=== PATIENT | female | born 1935 | race Caucasian/White ===

== ENCOUNTER 2017-04-26 12:05 | Emergency (ER) | payer MEDICARE ==
[~2017-04-26] VITALS: Ht 152.4 cm; Wt 57.5 kg
[2017-04-26] MEDS ORDERED: LOVA20TA2 PO (12:22)
[2017-04-26] MEDS ORDERED: ASPI81TA85 PO (12:22)
[2017-04-26] MEDS ORDERED: ATEN25TA PO (12:22)
[2017-04-26] MEDS ORDERED: LISI20TA PO (12:22)
[2017-04-26] MEDS ORDERED: PIOG15TA3 PO (12:22)
[2017-04-26] MEDS ORDERED: METF500T PO (12:22)
[2017-04-26] MEDS ORDERED: LEVO137T2 PO (12:22)
[2017-04-26] MEDS ORDERED: OMEP40CA2 PO (12:22)
[2017-04-26] MEDS ORDERED: CHEL50TA PO (12:25)
[2017-04-26] MEDS ORDERED: GLUC750T22 PO (12:25)
[2017-04-26] MEDS ORDERED: VITA1CAP2 PO (12:25)
[2017-04-26] MEDS ORDERED: CYCLOBENZAPRINE 5MG TABLET PO ONE (13:30)
[2017-04-26 13:49] LABS: BASO % 0.7 % (0.0-1.0); EOS # 0.1 K/mm3 (0.0-0.50); EOS % 1.3 % (0.0-3.0); LARGE UNSTAINED CELL # 0.3 K/mm3 (0.0-0.4); LARGE UNSTAINED CELL % 4.1 % (0.0-4.0); LYMPH # 1.8 K/mm3 (1.5-4.5); LYMPH % 27.1 % (24.0-44.0); MEAN CORPUSCULAR HEMOGLOBIN 32.6 pg (27.0-33.0); MEAN CORPUSCULAR HGB CONC 33.5 g/dl (32.0-36.5); MEAN CORPUSCULAR VOLUME 97.3 fl (80.0-96.0); MONO # 0.4 K/mm3 (0.0-0.8); MONO % 6.7 % (0.0-5.0); NEUTROPHILS % 60.2 % (36.0-66.0); PLATELET COUNT, AUTOMATED 352 k/mm3 (150-450); WHITE BLOOD COUNT 6.6 K/mm3 (4.0-10.0)
[2017-04-26 14:13] LABS: ALBUMIN 3.4 GM/DL (3.2-5.2); ALBUMIN/GLOBULIN RATIO 1.06 (1.00-1.93); ALKALINE PHOSPHATASE 83 U/L (45-117); ALT/SGPT 15 U/L (12-78); ANION GAP 4 MEQ/L (8-16); AST/SGOT 13 U/L (15-37); BILIRUBIN,DIRECT < 0.1 MG/DL (0.0-0.2); BILIRUBIN,TOTAL 0.3 MG/DL (0.2-1.0); BLOOD UREA NITROGEN 10 MG/DL (7-18); CALCIUM LEVEL 9.1 MG/DL (8.8-10.2); CARBON DIOXIDE LEVEL 29 MEQ/L (21-32); CHLORIDE LEVEL 99 MEQ/L (98-107); CREATININE FOR GFR 0.77 MG/DL (0.55-1.02); GLOMERULAR FILTRATION RATE > 60.0 (>32); GLUCOSE, FASTING 77 MG/DL (83-110); POTASSIUM SERUM 4.8 MEQ/L (3.5-5.1); SODIUM LEVEL 132 MEQ/L (136-145); TOTAL PROTEIN 6.6 GM/DL (6.4-8.2)
[2017-04-26 14:32] LABS: ERYTHROCYTE SEDIMENTATION RATE 11 mm/hr (0-30)
--- NOTE | 2017-04-26 14:55 | REP ---
CT CHEST WITHOUT IV CONTRAST: CT chest is performed without IV contrast. Sagittal and coronal reconstruction images are performed. Diffuse fibrotic changes are seen throughout the lungs without acute infiltrate or suspicious nodular opacity. The hearts not enlarged. There is moderate atherosclerotic calcification of the thoracic aorta without aneurysm. There is no pleural or pericardial effusion. No gross adenopathy is seen. There is a huge hiatal hernia. There are degenerative changes of the spine. There is no fracture of the visualized osseous structures. There is metallic internal fixation in the right clavicle. The visualized upper abdominal structures are grossly unremarkable. IMPRESSION: No acute abnormalities as discussed in detail above. Huge hiatal hernia. Signed by Ashu Cheung MD 04/26/2017 05:24 P
[2017-04-26] MEDS ORDERED: KETOROLAC 30 MG/ML VIAL (J1885) IV ONE (15:00)
[2017-04-26] MEDS ORDERED: CYCL5TA PO (16:31)
[2017-04-26] MEDS ORDERED: NORC1TAB4 PO (16:31)
[2017-04-26 16:46] VITALS: BP 141/70
--- NOTE | 2017-04-26 19:39 | ECGEPIP ---
Stationary ECG Study 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
== END 2017-04-26 16:47 | disposition home or self-care (01) ==
LOC: M ED 13:55
DX: E87.1 Hypo-osmolality and hyponatremia (principal); M62.838 Other muscle spasm; K44.9 Diaphragmatic hernia without obstruction or gangrene; E11.9 Type 2 diabetes mellitus without complications; I10 Essential (primary) hypertension; E03.9 Hypothyroidism, unspecified; Z88.0 Allergy status to penicillin; F17.210 Nicotine dependence, cigarettes, uncomplicated
CPT/HCPCS: 71250; 80048; 80076; 82550; 82553; 83880; 84484; 85025; 85652; 86140; 93005; 93041; 94760; 96374; 99285; J1885

== ENCOUNTER 2018-09-19 09:17 | Inpatient (IN) | payer MEDICARE ==
[2018-09-19 10:06] LABS: BASO # 0.1 10^3/uL (0.0-0.2); BASO % 0.4 % (0.0-1.0); EOS % 0.3 % (0.0-3.0); HEMATOCRIT 41.6 % (36.0-47.0); HEMOGLOBIN 14.5 g/dl (12.0-15.5); IMMATURE GRANULOCYTE % 1.3 % (0-3.0); LYMPH # 1.7 10^3/uL (1.5-4.5); LYMPH % 11.8 % (24.0-44.0); MEAN CORPUSCULAR HEMOGLOBIN 31.7 pg (27.0-33.0); MEAN CORPUSCULAR HGB CONC 34.9 g/dl (32.0-36.5); MEAN CORPUSCULAR VOLUME 90.8 fl (80.0-96.0); MONO # 1.4 10^3/uL (0.0-0.8); MONO % 9.9 % (0.0-5.0); NEUTROPHILS # 10.8 10^3/uL (1.8-7.7); NEUTROPHILS % 76.3 % (36.0-66.0); PLATELET COUNT, AUTOMATED 440 10^3/uL (150-450); RED BLOOD COUNT 4.58 10^6/uL (4.00-5.40); RED CELL DISTRIBUTION WIDTH 11.6 % (11.5-14.5); WHITE BLOOD COUNT 14.2 10^3/uL (4.0-10.0)
[2018-09-19 10:59] LABS: ALBUMIN/GLOBULIN RATIO 0.83 (1.00-1.93); ALKALINE PHOSPHATASE 113 U/L (45-117); ALT/SGPT 13 U/L (12-78); ANION GAP 9 MEQ/L (8-16); AST/SGOT 11 U/L (7-37); BILIRUBIN,DIRECT < 0.1 MG/DL (0.0-0.2); BILIRUBIN,TOTAL 0.3 MG/DL (0.2-1.0); BLOOD UREA NITROGEN 16 MG/DL (7-18); CALCIUM LEVEL 9.6 MG/DL (8.8-10.2); CARBON DIOXIDE LEVEL 33 MEQ/L (21-32); CHLORIDE LEVEL 77 MEQ/L (98-107); CPK CREATINE PHOSPHOKINASE 66 U/L (26-192); CREATININE FOR GFR 0.81 MG/DL (0.55-1.30); GLOMERULAR FILTRATION RATE > 60.0 (>32); GLUCOSE, FASTING 129 MG/DL (70-100); MB/CK RELATIVE INDEX 5.45 (< OR =4); NT-PRO BNP 2347 PG/ML (<450); POTASSIUM SERUM 4.1 MEQ/L (3.5-5.1); SODIUM LEVEL 119 MEQ/L (136-145); TOTAL PROTEIN 6.6 GM/DL (6.4-8.2); TROPONIN I < 0.02 NG/ML (< 0.10)
[2018-09-19 11:00] LABS: LACTIC ACID SEPSIS PROTOCOL 1.5 MMOL/L (0.4-2.0)
[2018-09-19] MEDS: IPRATROPIUM 0.5MG/ALBUTEROL 2.5MG INH SOL UD 3ML (DUONEB)(J7620) NEB ×3 (11:01→12:01)
[2018-09-19] MEDS: methylPREDNISolone INJ 125 MG/2 ML VIAL (J2930) IV (11:07)
[2018-09-19 11:32] LABS: FREE T4 0.81 NG/DL (0.76-1.46)
[2018-09-19] MEDS: FUROSEMIDE 40 MG/4 ML VIAL (J1940) IV (11:40)
[2018-09-19] MEDS ORDERED: ACETAMINOPHEN TAB 650MG DOSE (2X325MG) PO (12:00)
[2018-09-19] MEDS: HumaLOG INSULIN (NovoLOG) PER UNIT SC ×3 (12:00→20:55)
[2018-09-19] MEDS ORDERED: ONDANSETRON 4 MG TAB (S0181) PO (12:00)
[2018-09-19 12:02] LABS: OSMOLALITY URINE 512 MOSM/KG (500-800)
[2018-09-19 12:03] LABS: KETONE, URINE AUTO RFX NEGATIVE (NEGATIVE); NITRITE, URINE AUTO RFX NEGATIVE (NEGATIVE); RBC, URINE AUTO RFX 4 /HPF (0-3); SPECIFIC GRAVITY UR AUTO RFX 1.014 (1.002-1.035); SQUAM EPITHELIAL CELL UR AURFX 6 /HPF (0-6); WBC, URINE AUTO RFX 3 /HPF (0-3)
[2018-09-19 12:04] LABS: LEUKOCYTE ESTERASE UR AUTO RFX TRACE (NEGATIVE)
[2018-09-19 12:14] LABS: INFLUENZA A AMPLIFICATION NEGATIVE (NEGATIVE); INFLUENZA B AMPLIFICATION NEGATIVE (NEGATIVE)
[2018-09-19 12:27] LABS: SODIUM,RANDOM URINE 72 MEQ/L
[2018-09-19] MEDS: VITAMIN D 1,000 INTERNATIONAL UNITS TABLET PO (12:27)
[2018-09-19] MEDS: LEVOTHYROXINE 125MCG TABLET (0.125MG) PO (12:28)
[2018-09-19] MEDS: ASPIRIN 81 MG ENTERIC TAB PO (12:28)
[2018-09-19] MEDS: OMEPRAZOLE 20 MG CAP PO (12:28)
[2018-09-19] MEDS: ATENOLOL 25 MG TAB PO (12:29)
[2018-09-19] MEDS ORDERED: GLUCAGON FOR INJ 1 MG VIAL (J1610) SC (12:45)
[2018-09-19] MEDS ORDERED: GLUCOSE 4 GM CHEW TABLET PO (12:45)
[2018-09-19] MEDS ORDERED: DEXTROSE 50% 50 ML SYRINGE IV (12:45)
[2018-09-19] MEDS: SODIUM CHLORIDE 0.9% 1000ML IV (13:10)
[2018-09-19 13:54] LABS: ANION GAP 10 MEQ/L (8-16); BLOOD UREA NITROGEN 15 MG/DL (7-18); CALCIUM LEVEL 9.4 MG/DL (8.8-10.2); CARBON DIOXIDE LEVEL 33 MEQ/L (21-32); CHLORIDE LEVEL 76 MEQ/L (98-107); CREATININE FOR GFR 0.82 MG/DL (0.55-1.30); GLOMERULAR FILTRATION RATE > 60.0 (>32); GLUCOSE, FASTING 152 MG/DL (70-100); POTASSIUM SERUM 3.4 MEQ/L (3.5-5.1); SODIUM LEVEL 119 MEQ/L (136-145)
[2018-09-19 13:58] LABS: OSMOLALITY SERUM 257 MOSM/KG (280-301)
[2018-09-19 14:52] LABS: ANION GAP 8 MEQ/L (8-16); BLOOD UREA NITROGEN 15 MG/DL (7-18); CALCIUM LEVEL 8.9 MG/DL (8.8-10.2); CARBON DIOXIDE LEVEL 32 MEQ/L (21-32); CHLORIDE LEVEL 78 MEQ/L (98-107); CREATININE FOR GFR 0.87 MG/DL (0.55-1.30); GLOMERULAR FILTRATION RATE > 60.0 (>32); GLUCOSE, FASTING 195 MG/DL (70-100); MAGNESIUM LEVEL 1.3 MG/DL (1.8-2.4); SODIUM LEVEL 118 MEQ/L (136-145); TROPONIN I < 0.02 NG/ML (< 0.10)
[2018-09-19 15:20] LABS: ESTIMATED AVERAGE GLUCOSE 140 MG/DL (60-110); HEMOGLOBIN A1c 6.5 %
[2018-09-19] MEDS: POTASSIUM CHLORIDE 10% LIQ 20 MEQ/15 ML UDC PO (16:23)
[2018-09-19 16:42] LABS: BEDSIDE GLUCOSE 257 MG/DL (83-110)
[2018-09-19] MEDS: SODIUM CHLORIDE 3% 200 ML IV (17:56)
[2018-09-19] MEDS: MAGNESIUM SULFATE 8 MEQ in NS 100 ML IV (18:17)
[2018-09-19 18:30] LABS: ANION GAP 7 MEQ/L (8-16); BLOOD UREA NITROGEN 17 MG/DL (7-18); CALCIUM LEVEL 8.8 MG/DL (8.8-10.2); CARBON DIOXIDE LEVEL 29 MEQ/L (21-32); CHLORIDE LEVEL 82 MEQ/L (98-107); CREATININE FOR GFR 1.09 MG/DL (0.55-1.30); GLOMERULAR FILTRATION RATE 50.8 (>32); GLUCOSE, FASTING 338 MG/DL (70-100); POTASSIUM SERUM 5.4 MEQ/L (3.5-5.1); SODIUM LEVEL 118 MEQ/L (136-145)
[2018-09-19 20:55] LABS: BEDSIDE GLUCOSE 206 MG/DL (83-110)
[2018-09-19] MEDS: SIMVASTATIN 20 MG TAB PO (20:55)
[2018-09-19 22:21] LABS: ANION GAP 8 MEQ/L (8-16); BLOOD UREA NITROGEN 19 MG/DL (7-18); CALCIUM LEVEL 8.6 MG/DL (8.8-10.2); CARBON DIOXIDE LEVEL 28 MEQ/L (21-32); CHLORIDE LEVEL 85 MEQ/L (98-107); CREATININE FOR GFR 0.95 MG/DL (0.55-1.30); GLOMERULAR FILTRATION RATE 59.5 (>32); GLUCOSE, FASTING 221 MG/DL (70-100); SODIUM LEVEL 121 MEQ/L (136-145)
[2018-09-20 02:27] LABS: ANION GAP 9 MEQ/L (8-16); BLOOD UREA NITROGEN 19 MG/DL (7-18); CALCIUM LEVEL 8.6 MG/DL (8.8-10.2); CARBON DIOXIDE LEVEL 28 MEQ/L (21-32); CHLORIDE LEVEL 87 MEQ/L (98-107); CREATININE FOR GFR 0.83 MG/DL (0.55-1.30); GLOMERULAR FILTRATION RATE > 60.0 (>32); GLUCOSE, FASTING 202 MG/DL (70-100); SODIUM LEVEL 124 MEQ/L (136-145)
[2018-09-20 05:19] LABS: BASO % 0.1 % (0.0-1.0); HEMATOCRIT 35.8 % (36.0-47.0); HEMOGLOBIN 12.6 g/dl (12.0-15.5); IMMATURE GRANULOCYTE % 1.8 % (0-3.0); LYMPH # 1.1 10^3/uL (1.5-4.5); LYMPH % 10.2 % (24.0-44.0); MEAN CORPUSCULAR HEMOGLOBIN 31.3 pg (27.0-33.0); MEAN CORPUSCULAR HGB CONC 35.2 g/dl (32.0-36.5); MEAN CORPUSCULAR VOLUME 89.1 fl (80.0-96.0); MONO # 0.9 10^3/uL (0.0-0.8); MONO % 8.7 % (0.0-5.0); NEUTROPHILS # 8.6 10^3/uL (1.8-7.7); NEUTROPHILS % 79.2 % (36.0-66.0); PLATELET COUNT, AUTOMATED 383 10^3/uL (150-450); RED BLOOD COUNT 4.02 10^6/uL (4.00-5.40); RED CELL DISTRIBUTION WIDTH 11.6 % (11.5-14.5); WHITE BLOOD COUNT 10.8 10^3/uL (4.0-10.0)
[2018-09-20 05:24] LABS: ANION GAP 7 MEQ/L (8-16); BLOOD UREA NITROGEN 19 MG/DL (7-18); CALCIUM LEVEL 8.7 MG/DL (8.8-10.2); CARBON DIOXIDE LEVEL 30 MEQ/L (21-32); CHLORIDE LEVEL 86 MEQ/L (98-107); CREATININE FOR GFR 0.77 MG/DL (0.55-1.30); GLOMERULAR FILTRATION RATE > 60.0 (>32); GLUCOSE, FASTING 169 MG/DL (70-100); POTASSIUM SERUM 4.9 MEQ/L (3.5-5.1); SODIUM LEVEL 123 MEQ/L (136-145)
[2018-09-20] MEDS: LEVOTHYROXINE 125MCG TABLET (0.125MG) PO (06:32)
[2018-09-20] MEDS: ASPIRIN 81 MG ENTERIC TAB PO (08:39)
[2018-09-20] MEDS: OMEPRAZOLE 20 MG CAP PO (08:39)
[2018-09-20] MEDS: MAGNESIUM OXIDE 400 MG TAB (MAG-OX) PO (08:39)
[2018-09-20] MEDS: VITAMIN D 1,000 INTERNATIONAL UNITS TABLET PO (08:40)
[2018-09-20] MEDS: HumaLOG INSULIN (NovoLOG) PER UNIT SC ×4 (08:40→19:57)
[2018-09-20] MEDS: ATENOLOL 25 MG TAB PO (08:56)
[2018-09-20] MEDS ORDERED: ATENOLOL 25 MG TAB PO (09:00)
[2018-09-20 10:45] LABS: ANION GAP 7 MEQ/L (8-16); BLOOD UREA NITROGEN 19 MG/DL (7-18); CALCIUM LEVEL 8.9 MG/DL (8.8-10.2); CARBON DIOXIDE LEVEL 31 MEQ/L (21-32); CHLORIDE LEVEL 88 MEQ/L (98-107); CREATININE FOR GFR 1.03 MG/DL (0.55-1.30); GLOMERULAR FILTRATION RATE 54.2 (>32); GLUCOSE, FASTING 120 MG/DL (70-100); POTASSIUM SERUM 4.6 MEQ/L (3.5-5.1); SODIUM LEVEL 126 MEQ/L (136-145)
[2018-09-20 11:26] LABS: SODIUM,RANDOM URINE 26 MEQ/L
[2018-09-20 11:32] LABS: OSMOLALITY URINE 563 MOSM/KG (500-800)
[2018-09-20 11:40] LABS: BEDSIDE GLUCOSE 156 MG/DL (83-110)
[2018-09-20] MEDS: TOLVAPTAN 7.5 MG HALF-TAB PO (12:22)
[2018-09-20 17:02] LABS: BEDSIDE GLUCOSE 96 MG/DL (83-110)
[2018-09-20 18:16] LABS: ANION GAP 4 MEQ/L (8-16); BLOOD UREA NITROGEN 19 MG/DL (7-18); CALCIUM LEVEL 9.1 MG/DL (8.8-10.2); CARBON DIOXIDE LEVEL 33 MEQ/L (21-32); CHLORIDE LEVEL 89 MEQ/L (98-107); CREATININE FOR GFR 0.96 MG/DL (0.55-1.30); GLOMERULAR FILTRATION RATE 58.8 (>32); GLUCOSE, FASTING 95 MG/DL (70-100); POTASSIUM SERUM 4.4 MEQ/L (3.5-5.1); SODIUM LEVEL 126 MEQ/L (136-145)
[2018-09-20] MEDS: SIMVASTATIN 20 MG TAB PO (19:57)
[2018-09-20] MEDS: IPRATROPIUM 0.5MG/ALBUTEROL 2.5MG INH SOL UD 3ML (DUONEB)(J7620) NEB (20:00)
[2018-09-20 20:50] LABS: BEDSIDE GLUCOSE 186 MG/DL (83-110)
[2018-09-20 22:29] LABS: ANION GAP 6 MEQ/L (8-16); BLOOD UREA NITROGEN 19 MG/DL (7-18); CALCIUM LEVEL 8.8 MG/DL (8.8-10.2); CARBON DIOXIDE LEVEL 32 MEQ/L (21-32); CHLORIDE LEVEL 92 MEQ/L (98-107); CREATININE FOR GFR 0.85 MG/DL (0.55-1.30); GLOMERULAR FILTRATION RATE > 60.0 (>32); GLUCOSE, FASTING 157 MG/DL (70-100); POTASSIUM SERUM 4.5 MEQ/L (3.5-5.1); SODIUM LEVEL 130 MEQ/L (136-145)
[2018-09-21] MEDS: IPRATROPIUM 0.5MG/ALBUTEROL 2.5MG INH SOL UD 3ML (DUONEB)(J7620) NEB ×3 (00:22→10:31)
[2018-09-21 05:20] LABS: ALBUMIN 2.6 GM/DL (3.2-5.2); ANION GAP 5 MEQ/L (8-16); BLOOD UREA NITROGEN 16 MG/DL (7-18); CALCIUM LEVEL 8.8 MG/DL (8.8-10.2); CARBON DIOXIDE LEVEL 33 MEQ/L (21-32); CHLORIDE LEVEL 95 MEQ/L (98-107); CREATININE FOR GFR 0.74 MG/DL (0.55-1.30); GLOMERULAR FILTRATION RATE > 60.0 (>32); GLUCOSE, FASTING 121 MG/DL (70-100); PHOSPHORUS LEVEL 2.5 MG/DL (2.5-4.9); POTASSIUM SERUM 4.4 MEQ/L (3.5-5.1); SODIUM LEVEL 133 MEQ/L (136-145)
[2018-09-21] MEDS: LEVOTHYROXINE 125MCG TABLET (0.125MG) PO (05:52)
[2018-09-21] MEDS: MAGNESIUM OXIDE 400 MG TAB (MAG-OX) PO (08:07)
[2018-09-21] MEDS: VITAMIN D 1,000 INTERNATIONAL UNITS TABLET PO (08:07)
[2018-09-21] MEDS: OMEPRAZOLE 20 MG CAP PO (08:07)
[2018-09-21] MEDS: ASPIRIN 81 MG ENTERIC TAB PO (08:07)
[2018-09-21] MEDS: HumaLOG INSULIN (NovoLOG) PER UNIT SC ×2 (08:08→12:26)
[2018-09-21] MEDS: ATENOLOL 25 MG TAB PO (08:12)
[2018-09-21] MEDS ORDERED: SODIUM CHLORIDE 1 GM TAB PO (09:00)
[2018-09-21 10:53] LABS: SODIUM,RANDOM URINE 78 MEQ/L
[2018-09-21 11:02] LABS: BEDSIDE GLUCOSE 139 MG/DL (83-110)
[2018-09-21 11:46] LABS: OSMOLALITY URINE 555 MOSM/KG (500-800)
[2018-09-21] MEDS ORDERED: FUROSEMIDE 10MG PER 1/2 TABLET PO (17:00)
== END 2018-09-21 14:08 | disposition home or self-care (01) | DRG 644 ==
LOC: M ED 09:17 → M ED INP 11:08 → M PCU 15:17
DX: E22.2 Syndrome of inappropriate secretion of antidiuretic hormone (principal); E87.1 Hypo-osmolality and hyponatremia; I10 Essential (primary) hypertension; E03.9 Hypothyroidism, unspecified; E11.9 Type 2 diabetes mellitus without complications; R53.83 Other fatigue; Z79.899 Other long term (current) drug therapy; Z79.82 Long term (current) use of aspirin; Z88.0 Allergy status to penicillin; Z88.8 Allergy status to other drugs, medicaments and biological substances; I25.2 Old myocardial infarction; F17.200 Nicotine dependence, unspecified, uncomplicated; E86.1 Hypovolemia; E78.5 Hyperlipidemia, unspecified; E87.6 Hypokalemia; E83.42 Hypomagnesemia

== ENCOUNTER → 2018-09-25 | Outpatient (REF) | payer MEDICARE ==
[2018-09-25 15:23] LABS: SODIUM,RANDOM URINE 75 MEQ/L
[2018-09-25 15:23] LABS: OSMOLALITY URINE 399 MOSM/KG (500-800)
== END ==
LOC: M LAB REF 13:33
DX: E87.1 Hypo-osmolality and hyponatremia (principal)
CPT/HCPCS: 83935

== ENCOUNTER → 2018-09-26 | Outpatient (CLI) | payer MEDICARE ==
[2018-09-26 11:57] LABS: ANION GAP 8 MEQ/L (8-16); BLOOD UREA NITROGEN 10 MG/DL (7-18); CARBON DIOXIDE LEVEL 31 MEQ/L (21-32); CHLORIDE LEVEL 91 MEQ/L (98-107); CREATININE FOR GFR 0.71 MG/DL (0.55-1.30); GLOMERULAR FILTRATION RATE > 60.0 (>32); GLUCOSE, FASTING 149 MG/DL (70-100); POTASSIUM SERUM 4.8 MEQ/L (3.5-5.1); SODIUM LEVEL 130 MEQ/L (136-145)
[2018-09-28 14:07] LABS: QuantiFERON-TB Gold Plus Negative (Negative)
== END ==
LOC: M LAB 10:40
DX: E87.1 Hypo-osmolality and hyponatremia (principal)
CPT/HCPCS: 80048

== ENCOUNTER → 2018-10-07 | Outpatient (REF) | payer MEDICARE ==
[2018-10-07 18:25] LABS: OSMOLALITY URINE 351 MOSM/KG (500-800)
[2018-10-07 18:32] LABS: SODIUM,RANDOM URINE 142 MEQ/L
== END ==
LOC: M LAB REF 17:59
DX: E87.1 Hypo-osmolality and hyponatremia (principal)
CPT/HCPCS: 83935

== ENCOUNTER 2019-05-11 19:30 | Inpatient (IN) | payer MEDICARE ==
[~2019-05-11] VITALS: Ht 152.4 cm; Wt 56.1 kg
[~2019-05-11 19:30] MED LIST: ASPI81TA85 PO; ATEN25TA PO; CHEL50TA PO; CYCL5TAB PO; FURO20TA2 PO; GLUC750T22 PO; LEVO137T2 PO; LISI10TA2 PO; LISI20TA PO; LOVA20TA2 PO; METF500T13 PO; NORC1TAB7 PO; OMEP40CA2 PO; PIOG1TAB36 PO; SODI1TAB12 PO; SYNT125T PO; VITA-183 PO
[2019-05-11 20:15] LABS: BASO % 0.5 % (0.0-1.0); EOS # 0.2 10^3/uL (0.0-0.50); EOS % 2.8 % (0.0-3.0); HEMATOCRIT 39.7 % (36.0-47.0); HEMOGLOBIN 12.6 g/dl (12.0-15.5); LYMPH # 1.4 10^3/uL (1.5-4.5); LYMPH % 18.3 % (24.0-44.0); MEAN CORPUSCULAR HEMOGLOBIN 32.4 pg (27.0-33.0); MEAN CORPUSCULAR HGB CONC 31.7 g/dl (32.0-36.5); MEAN CORPUSCULAR VOLUME 102.1 fl (80.0-96.0); MONO # 0.6 10^3/uL (0.0-0.8); MONO % 7.8 % (0.0-5.0); NEUTROPHILS # 5.4 10^3/uL (1.8-7.7); NEUTROPHILS % 70.3 % (36.0-66.0); PLATELET COUNT, AUTOMATED 289 10^3/uL (150-450); RED BLOOD COUNT 3.89 10^6/uL (4.00-5.40); WHITE BLOOD COUNT 7.7 10^3/uL (4.0-10.0)
[2019-05-11] MEDS ORDERED: DOBUTamine HCL 500,000 MCG in APPROPRIATE DILUENT 1 EA IV SCH ×2 (20:15→23:15)
[2019-05-11 20:31] LABS: INR 1.08; PARTIAL THROMBOPLASTIN TIME 32.2 SECONDS (25.0-38.4); PROTHROMBIN TIME 13.7 SECONDS (11.8-14.0)
[2019-05-11 20:33] LABS: ALBUMIN 2.8 GM/DL (3.2-5.2); ALT/SGPT 56 U/L (12-78); BILIRUBIN,DIRECT 0.1 MG/DL (0.0-0.2); BILIRUBIN,TOTAL 0.2 MG/DL (0.2-1.0); BLOOD UREA NITROGEN 27 MG/DL (7-18); CALCIUM LEVEL 8.7 MG/DL (8.8-10.2); CARBON DIOXIDE LEVEL 30 MEQ/L (21-32); CHLORIDE LEVEL 105 MEQ/L (98-107); CK-MB VALUE MASS 2.4 NG/ML (<3.6); CPK CREATINE PHOSPHOKINASE 84 U/L (26-192); CREATININE FOR GFR 1.45 MG/DL (0.55-1.30); FREE T4 0.86 NG/DL (0.76-1.46); GLOMERULAR FILTRATION RATE 36.5 (>32); GLUCOSE, FASTING 189 MG/DL (70-100); MB/CK RELATIVE INDEX 2.86 (< OR =4); NT-PRO BNP 16939 PG/ML (<450); POTASSIUM SERUM 4.7 MEQ/L (3.5-5.1); SODIUM LEVEL 139 MEQ/L (136-145); TOTAL PROTEIN 7.1 GM/DL (6.4-8.2); TROPONIN I < 0.02 NG/ML (< 0.10)
[2019-05-11] MEDS ORDERED: SODI1TAB6 PO (21:06)
[2019-05-11] MEDS ORDERED: LEVO150T7 PO (21:06)
[2019-05-11] MEDS ORDERED: ASPI81TA27 PO (21:06)
[2019-05-11] MEDS ORDERED: MAGN400T PO (21:06)
[2019-05-11] MEDS ORDERED: PROAAER10 INH (21:06)
[2019-05-11] MEDS ORDERED: GLUCTAB6 PO (21:06)
[2019-05-11] MEDS ORDERED: FURO20TA2 PO (21:06)
[2019-05-11] MEDS ORDERED: ATEN25TA PO (21:08)
--- NOTE | 2019-05-11 21:24 | REP ---
Clinical: Chest pain. Comparison: 09/21/2018. Findings: Examination is limited by portable technique and underpenetration which accentuate the pulmonary vasculature and interstitium. Cardiomegaly with interstitial edema as well as bilateral lower lobe infiltrates (left greater than right) and moderate left pleural effusion suggested. Skeletal structures demonstrate osteopenia and degenerative changes. Impression: Differential diagnosis includes multifocal pneumonia and CHF with bilateral infiltrates (left greater than right) and moderate left pleural effusion. Electronically Signed by Jimenez Sharma MD 05/11/2019 09:15 P
[2019-05-11 21:57] LABS: ABG BASE EXCESS -0.1 (-2.0-2.0); ABG HCO3 23.5 MEQ/L (22.0-26.0); ABG PARTIAL PRESSURE CO2 35.2 mmHg (35.0-45.0); ABG PARTIAL PRESSURE O2 141.1 mmHg (75.0-100.0); ABG STANDARD HCO3 24.4 MEQ/L (22.0-26.0); ABG TOTAL CO2 24.6 MEQ/L (23.0-31.0); ABG pH (ARTERIAL) 7.443 UNITS (7.350-7.450)
[2019-05-11] MEDS ORDERED: LEVOTHYROXINE 100 MCG (0.1MG) VIAL IV SCH (22:00)
--- NOTE | 2019-05-11 22:04 | HPEPDOC ---
General Date of Admission May 11, 2019 at 21:34 Date of Service: May 11, 2019 Attending Physician: DIANNE CRUZ MD Chief Complaint The patient is a 83-year-old female admitted with a reason for visit of Complete Heart Block. History of Present Illness Patient is an 83-year-old female, past medical history significant for nicotine dependence, hypertension on atenolol, hypothyroidism on levothyroxine, type 2 diabetes, presenting to the emergency room on account of shortness of breath for 1 week. Family at bedside, state initially patient thought dyspnea was due to allergies and was taking Benadryl every morning and night for about 5 days. There was no improvement in her symptoms. Today due to worsening shortness of breath, they proceeded to urgent care thinking. Patient had bronchitis. At urgent care. Her heart rate was noted to be in the 40s. She was then referred to the emergency room. She was started on dobutamine drip per cardiology recommendations. Imaging study chest x-ray showed moderate bilateral pleural effusion, worse on left. Laboratory data was also abnormal for a TSH of 25, markedly elevated from prior TSH of 5 in September last year. On assessment, patient was noted to be using accessory muscles and blood pressure was markedly elevated with a systolic blood pressure greater than 200. Another call was placed to cardiology who recommended continuation with dobutamine drip and holding atenolol till clearance from her system. Heart rate remained at 37-40 bpm.. On questioning family state. Patient's thyroid was checked 2 weeks ago, there were no medication adjustments because it was determined patient was taken medication incorrectly with meals instead of on an empty stomach on waking up. Home Medications Scheduled Aspirin (Aspirin EC) 81 Mg Tablet.dr, 81 MG PO DAILY, (Reported) Atenolol (Atenolol) 25 Mg Tablet, 25 MG PO DAILY, (Reported) PATIENT WAS TOLD TO STOP THIS MEDICATION TODAY Cholecalciferol (Vitamin D3) (Vitamin D3) 1,000 Unit Cap, 1,000 UNIT PO DAILY, (Reported) Furosemide (Furosemide) 20 Mg Tablet, 20 MG PO DAILY, (Reported) Gluc Dumont/Chondro Dumont A/Vit C/Mn (Glucosamine Chondroitin Tab) 1 Each Tablet, 1 TAB PO DAILY, (Reported) Levothyroxine Sodium (Levothyroxine Sodium) 150 Mcg Tablet, 150 MCG PO DAILY, (Reported) Lovastatin (Lovastatin) 20 Mg Tab, 20 MG PO DAILY, (Reported) Magnesium Oxide (Magnesium Oxide) 400 Mg Tablet, 400 MG PO DAILY, (Reported) Metformin HCl (Metformin HCl) 500 Mg Tab, 500 MG PO DAILY, (Reported) Omeprazole (Omeprazole) 40 Mg Cap, 40 MG PO DAILY, (Reported) Sodium Chloride (Sodium Chloride) 1 Gm Tablet, 1 GM PO Q2D, (Reported) Sodium Chloride (Sodium Chloride) 1 Gm Tablet, 2 GM PO Q2D, (Reported) Scheduled PRN Albuterol Sulfate (Proair Hfa) 8.5 Gm Hfa.aer.ad, 2 PUFF INH Q4H PRN for SHORTNESS OF BREATH, (Reported) Allergies Coded Allergies: Penicillins (Verified Allergy, Unknown, 05/11/19) hydrochlorothiazide (Verified Allergy, Unknown, 05/11/19) Past Medical History Medical History Hypertension Hyperlipidemia Myocardial infarction Type 2 diabetes mellitus. Hypothyroidism Diverticulosis. Hyponatremia SIADH. Nicotine dependence Surgical History Carotid endarterectomy Celiac stenting Cataract surgery Colostomy placement and reversal Family History Significant Family History: No pertinent family hx Social History * Smoker: current smoker, less than 1 pack/day Alcohol: Denies Drugs: denies A-FIB/CHADSVASC A-FIB History Current/History of A-Fib/PAF?: No Current PO Anticoag Therapy: No Review of Systems Other systems A 10 point pertinent review of systems was completed, negative except as stated in the history of presenting illness. Physical Examination Other physical findings GENERAL: Mild respiratory distress, is present SKIN : Warm, dry intact HEENT: Atraumatic, normocephalic, PERRL, moist mucous membrane CARDIOVASCULAR: Regular rate and rhythm, with ectopic beats, S1S2, no JVD, race bilateral lower extremity edema, distal pulses + and palpable RESP: Posterior inspiratory crackles, some accessory muscle use noted ABDOMEN: BS+ non distended non tender MS: no joint deformities NEURO: Alert and oriented x 3, CN2-12 grossly intact PSYCH: anxiety is present without agitation, appropriate affect. Vital Signs Vital Signs Date Time Temp Pulse Resp B/P (MAP) Pulse Ox O2 Delivery O2 Flow Rate FiO2 05/11/19 21:46 37 18 136/63 (87) 97 Nasal Cannula 4.0 05/11/19 19:30 98.4 Laboratory Data Labs 24H Laboratory Tests 2 05/11/19 19:51: Immature Granulocyte % (Auto) 0.3, White Blood Count 7.7, Red Blood Count 3.89L, Hemoglobin 12.6, Hematocrit 39.7, Mean Corpuscular Volume 102.1H, Mean Corpuscular Hemoglobin 32.4, Mean Corpuscular Hemoglobin Concent 31.7L, Red Cell Distribution Width 13.7, Platelet Count 289, Neutrophils (%) (Auto) 70.3H, Lymphocytes (%) (Auto) 18.3L, Monocytes (%) (Auto) 7.8H, Eosinophils (%) (Auto) 2.8, Basophils (%) (Auto) 0.5, Neutrophils # (Auto) 5.4, Lymphocytes # (Auto) 1.4L, Monocytes # (Auto) 0.6, Eosinophils # (Auto) 0.2, Basophils # (Auto) 0.0, Nucleated Red Blood Cells % (auto) 0.0, Prothrombin Time 13.7, Prothromb Time International Ratio 1.08, Activated Partial Thromboplast Time 32.2, Anion Gap 4L, Glomerular Filtration Rate 36.5, Calcium Level 8.7L, Aspartate Amino Transf (AST/SGOT) 30, Alanine Aminotransferase (ALT/SGPT) 56, Alkaline Phosphatase 206H, Total Bilirubin 0.2, Direct Bilirubin 0.1, Total Creatine Kinase 84, Creatine Kinase MB 2.4, Creatine Kinase MB Relative Index 2.86, Troponin I < 0.02, C-Reactive Protein, Quantitative 2.90H, BF-Xcr-G-Type Natriuretic Peptide 64261D, Total Protein 7.1, Albumin 2.8L, Albumin/Globulin Ratio 0.65L, Thyroid Stimulating Hormone (TSH) 25.400H, Free Thyroxine 0.86 05/11/19 21:50: Blood Gas Bicarbonate Standard 24.4, Arterial Blood pH 7.443, Arterial Blood Partial Pressure CO2 35.2, Arterial Blood Partial Pressure O2 141.1H, Arterial Blood Total CO2 24.6, Arterial Blood HCO3 23.5, Arterial Blood Base Excess -0.1, Arterial Blood Oxygen Saturation 99.0 CBC/BMP Laboratory Tests 05/11/19 19:51 Red Blood Count 3.89 L, Mean Corpuscular Volume 102.1 H, Mean Corpuscular Hemoglobin 32.4, Mean Corpuscular Hemoglobin Concent 31.7 L, Red Cell Distribution Width 13.7, Neutrophils (%) (Auto) 70.3 H, Lymphocytes (%) (Auto) 18.3 L, Monocytes (%) (Auto) 7.8 H, Eosinophils (%) (Auto) 2.8, Basophils (%) (Auto) 0.5, Neutrophils # (Auto) 5.4, Lymphocytes # (Auto) 1.4 L, Monocytes # (Auto) 0.6, Eosinophils # (Auto) 0.2, Basophils # (Auto) 0.0 Assessment/Plan Complete heart block -On atenolol -Hold beta jorge therapy -Started on dobutamine and admitted to ICU for critical monitoring -Trend cardiac biomarkers -Follow recommendations by cardiology Acute congestive heart failure -Presenting with dyspnea for 1 week -Initial cardiac biomarker negative, trend cardiac biomarker -BNP elevated at 16,939 -2-D echocardiogram to evaluate ejection fraction, rule out regional wall motion abnormalities -Strict input and output -Lasix IV dosing Hypothyroidism -With elevated TSH while on Synthroid 150 g -Continue Synthroid Diabetes mellitus T2 -Finger stick checks prior to meals and at bedtime -Caloric controlled diet -Hold metformin due to reduced renal clearance -Coverage with insulin per sliding scale protocol Hypertension -Hold atenolol due to underlying complete heart block -Permissive hypertension in the setting of underlying complete heart block -Target systolic blood pressure less than 160 -Blood pressure monitoring every hour while heart rate less than 40 Renal insufficiency -Prior GFR greater than September with creatinine have ranged 0.8 -Current GFR in the 30s with creatinine elevated at 1.45 -Possibly due to complete heart block -Monitor renal indices with treatment -Consult nephrology if indicated DVT prophylaxis -Heparin every 8 hours Patient seen and examined at this time. 83 and a fever for one week of shortness of breath present to the emergency room found to be in congestive heart failure and complete heart block with symptoms. Cardiology was called and made aware the patient will see the patient from a consultation recommended dobutamine drip in the interim. Heart rate goal greater than 40, she does have some acute kidney injury likely secondary to congestive heart failure which is secondary to her heart block. We'll provide her with 40 of IV Lasix she is normally on 20 by mouth at home. Will trend her troponin. We have held her atenolol should her heart rate failed to improve with this could consider increasing her dose of Synthroid provided an IV dose this evening in addition to her regular by mouth dosing which we will increase as well. She may require permanent pacemaker placement. Acute kidney injury likely secondary to poor perfusion related to the congestive heart failure, with diuresis and reevaluate in that her BMP in the a.m. Plan / VTE VTE Prophylaxis Ordered?: Yes NAYLA CARBALLO [facility] May 11, 2019 22:04 DIANNE CRUZ MD May 12, 2019 03:38
[2019-05-11] MEDS ORDERED: HEPARIN SOD (PORCINE) 5000 UNITS/ML VIAL SQ ONE (22:15)
[2019-05-11] MEDS: FUROSEMIDE 40 MG/4 ML VIAL (J1940) IV SCH (22:16)
--- NOTE | 2019-05-11 22:24 | ECGEPIP ---
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
[2019-05-11 22:40] VITALS: BP 211/86
[2019-05-11] MEDS: HumaLOG INSULIN (NovoLOG) PER UNIT SC SCH (22:54)
[2019-05-11 23:00] VITALS: BP 211/82
[2019-05-11] MEDS ORDERED: GLUCAGON FOR INJ 1 MG VIAL (J1610) SC PRN (23:00)
[2019-05-11] MEDS ORDERED: DEXTROSE 50% 50 ML SYRINGE IV PRN (23:00)
[2019-05-11] MEDS ORDERED: GLUCOSE 4 GM CHEW TABLET PO PRN (23:00)
[2019-05-11] MEDS ORDERED: LEVOTHYROXINE 100 MCG (0.1MG) VIAL IV ONE (23:30)
[2019-05-12] VITALS (24 sets, daily range): BP systolic 91–189; BP diastolic 43–74
[2019-05-12] MEDS: LEVOTHYROXINE 100MCG TABLET (0.1MG) PO SCH (05:11)
[2019-05-12] MEDS: FUROSEMIDE 40 MG/4 ML VIAL (J1940) IV SCH ×2 (05:20→06:25)
[2019-05-12 05:28] LABS: ABG BASE EXCESS 0.8 (-2.0-2.0); ABG HCO3 24.6 MEQ/L (22.0-26.0); ABG O2 SATURATION 97.3 % (95.0-99.0); ABG PARTIAL PRESSURE CO2 36.4 mmHg (35.0-45.0); ABG PARTIAL PRESSURE O2 90.9 mmHg (75.0-100.0); ABG STANDARD HCO3 25.2 MEQ/L (22.0-26.0); ABG TOTAL CO2 25.7 MEQ/L (23.0-31.0); ABG pH (ARTERIAL) 7.447 UNITS (7.350-7.450)
[2019-05-12] MEDS ORDERED: LEVOTHYROXINE 150MCG TABLET (0.15MG) PO SCH (06:00)
[2019-05-12 06:15] LABS: HEMATOCRIT 34.6 % (36.0-47.0); HEMOGLOBIN 11.1 g/dl (12.0-15.5); MEAN CORPUSCULAR HEMOGLOBIN 33.5 pg (27.0-33.0); MEAN CORPUSCULAR HGB CONC 32.1 g/dl (32.0-36.5); MEAN CORPUSCULAR VOLUME 104.5 fl (80.0-96.0); PLATELET COUNT, AUTOMATED 219 10^3/uL (150-450); RED BLOOD COUNT 3.31 10^6/uL (4.00-5.40)
[2019-05-12 06:45] LABS: ALBUMIN 2.2 GM/DL (3.2-5.2); ALT/SGPT 40 U/L (12-78); BILIRUBIN,TOTAL 0.4 MG/DL (0.2-1.0); BLOOD UREA NITROGEN 28 MG/DL (7-18); CALCIUM LEVEL 8.3 MG/DL (8.8-10.2); CARBON DIOXIDE LEVEL 24 MEQ/L (21-32); CHLORIDE LEVEL 108 MEQ/L (98-107); CREATININE FOR GFR 1.26 MG/DL (0.55-1.30); GLUCOSE, FASTING 127 MG/DL (70-100); POTASSIUM SERUM 4.3 MEQ/L (3.5-5.1); SODIUM LEVEL 140 MEQ/L (136-145); TOTAL PROTEIN 5.7 GM/DL (6.4-8.2); TROPONIN I < 0.02 NG/ML (< 0.10)
[2019-05-12] MEDS: HumaLOG INSULIN (NovoLOG) PER UNIT SC SCH ×4 (07:50→21:00)
[2019-05-12] MEDS: ASPIRIN 81 MG ENTERIC TAB PO SCH (08:02)
[2019-05-12] MEDS: VITAMIN D 1,000 INTERNATIONAL UNITS TABLET PO SCH (08:02)
[2019-05-12] MEDS ORDERED: ENOXAPARIN 30 MG/0.3 ML SYR (J1650) SC SCH (09:00)
[2019-05-12] MEDS: ACETAMINOPHEN TAB 650MG DOSE (2X325MG) PO PRN ×2 (10:15→13:57)
[2019-05-12] MEDS ORDERED: FUROSEMIDE 40 MG/4 ML VIAL (J1940) IV SCH (18:00)
--- NOTE | 2019-05-12 19:53 | IPNPDOC ---
Subjective Date Seen The patient was seen on 05/12/19. Subjective Chief Complaint/HPI 83f with hypothyroid, htn, hx of SIADH, dm, cad who presented with sob and was admitted for complete heart block and chf. pt has not had a hx of chf in the past. There is also speculation that she may not have been taking her synthroid or atenolol properly started on dobutamine with ??results no complaints at rest currently a full 10 pt ROS was performed and negative except as documented above Objective Physical Examination General Exam: Positive: Alert, Cooperative, No Acute Distress Eye Exam: Positive: PERRLA, Conjunctiva & lids normal, EOMI; Negative: Sclera icteric ENT Exam: Positive: Atraumatic, Mucous membr. moist/pink, Pharynx Normal Neck Exam: Positive: Supple; Negative: JVD, thyromegaly Chest Exam: Positive: Clear to auscultation, Diminished Heart Exam: Positive: Bradycardic, Irregular Rhythm; Negative: Murmurs Telemetry: Positive: Bradycardia, AV Block, PVCs Abdomen Exam: Positive: Normal bowel sounds, Soft; Negative: Tenderness, Hepatospenomegaly Extremity Exam: Positive: Normal pulses; Negative: Clubbing, Cyanosis, Edema Skin Exam: Positive: Nl turgor and temperature; Negative: Rash, Breakdown Neuro Exam: Positive: Normal Gait, Normal Speech, Cranial Nerves 3-12 NL, Reflexes 2+ Psych Exam: Positive: Mental status NL, Mood NL, Oriented x 3 Assessment /Plan Assessment 83f with chb and chf chb doubt bb or hypothyroid is the cause suspect she will need a ppm placed cardio is consulted continue dobutamine for now CHF unclear if due to heart block or pre-existing heart disease being diuresed echo pending either way nacl tablets can contribute to her water retention and should be stopped if possible cardio consult pending hypothyroid on synthroid at home elevated tsh possibly not taking synthroid correctly alternatively may be sick euthyroid continue synthroid htn cannot use hctz due to hyponatremia hx avoid avn blockers until arrhythmia is corrected if bp is elevated would suggest hydralazine SIADH hx of severe hyponatremia from a the combination of siadh and hctz started on lasix and nacl tabs nephrology consulted to consider possibly stopping nacl given chf symptoms dm diabetic diet sliding scale finger sticks basal bolus if not controlled Plan/VTE VTE Prophylaxis Ordered?: Yes VS, I&O, 24H, [place] Vital Signs/I&O Vital Signs Date Time Temp Pulse Resp B/P (MAP) Pulse Ox O2 Delivery O2 Flow Rate FiO2 05/12/19 18:00 42 16 91/43 (59) 94 2.0 05/12/19 16:00 97.2 05/11/19 22:01 Nasal Cannula I&O- Last 24 Hours up to 6 AM 05/12/19 06:00 Intake Total 339 ml Output Total 850 ml Balance -511 ml Laboratory Data 24H LABS Laboratory Tests 2 05/11/19 19:51: Immature Granulocyte % (Auto) 0.3, White Blood Count 7.7, Red Blood Count 3.89L, Hemoglobin 12.6, Hematocrit 39.7, Mean Corpuscular Volume 102.1H, Mean Corpuscular Hemoglobin 32.4, Mean Corpuscular Hemoglobin Concent 31.7L, Red Cell Distribution Width 13.7, Platelet Count 289, Neutrophils (%) (Auto) 70.3H, Lymphocytes (%) (Auto) 18.3L, Monocytes (%) (Auto) 7.8H, Eosinophils (%) (Auto) 2.8, Basophils (%) (Auto) 0.5, Neutrophils # (Auto) 5.4, Lymphocytes # (Auto) 1.4L, Monocytes # (Auto) 0.6, Eosinophils # (Auto) 0.2, Basophils # (Auto) 0.0, Nucleated Red Blood Cells % (auto) 0.0, Prothrombin Time 13.7, Prothromb Time International Ratio 1.08, Activated Partial Thromboplast Time 32.2, Anion Gap 4L, Glomerular Filtration Rate 36.5, Calcium Level 8.7L, Aspartate Amino Transf (AST/SGOT) 30, Alanine Aminotransferase (ALT/SGPT) 56, Alkaline Phosphatase 206H, Total Bilirubin 0.2, Direct Bilirubin 0.1, Total Creatine Kinase 84, Creatine Kinase MB 2.4, Creatine Kinase MB Relative Index 2.86, Troponin I < 0.02, C-Reactive Protein, Quantitative 2.90H, PW-Mag-G-Type Natriuretic Peptide 73659F, Total Protein 7.1, Albumin 2.8L, Albumin/Globulin Ratio 0.65L, Thyroid Stimulating Hormone (TSH) 25.400H, Free Thyroxine 0.86 05/11/19 21:50: Blood Gas Bicarbonate Standard 24.4, Arterial Blood pH 7.443, Arterial Blood Partial Pressure CO2 35.2, Arterial Blood Partial Pressure O2 141.1H, Arterial Blood Total CO2 24.6, Arterial Blood HCO3 23.5, Arterial Blood Base Excess -0.1, Arterial Blood Oxygen Saturation 99.0 05/11/19 23:40: Urine Color YELLOW, Urine Appearance CLEAR, Urine pH 5.0, Urine Specific [place] 1.009, Urine Protein 2+H, Urine Glucose (UA) NEGATIVE, Urine Ketones NEGATIVE, Urine Blood 3+H, Urine Nitrite NEGATIVE, Urine Bilirubin NEGATIVE, Urine Urobilinogen 0.2, Urine Leukocyte Esterase NEGATIVE, Urine WBC (Auto) 2, Urine RBC (Auto) 46H, Urine Hyaline Casts (Auto) 0, Urine Bacteria (Auto) NEGATIVE, Urine Squamous Epithelial Cells 0, Urine Amorphous Sediment SMALLH, Urine Sperm (Auto) 05/12/19 01:56: Troponin I 0.02 05/12/19 05:11: Blood Gas Bicarbonate Standard 25.2, Arterial Blood pH 7.447, Arterial Blood Partial Pressure CO2 36.4, Arterial Blood Partial Pressure O2 90.9, Arterial Blood Total CO2 25.7, Arterial Blood HCO3 24.6, Arterial Blood Base Excess 0.8, Arterial Blood Oxygen Saturation 97.3 05/12/19 05:58: Nucleated Red Blood Cells % (auto) 0.0, Anion Gap 8, Glomerular Filtration Rate 43.0, Blood Urea Nitrogen 28H, Creatinine 1.26, Sodium Level 140, Potassium Level 4.3, Chloride Level 108H, Carbon Dioxide Level 24, Calcium Level 8.3L, Aspartate Amino Transf (AST/SGOT) 19, Alanine Aminotransferase (ALT/SGPT) 40, Alkaline Phosphatase 151H, Total Bilirubin 0.4#, Total Protein 5.7L, Albumin 2.2#L, Troponin I < 0.02, Albumin/Globulin Ratio 0.63L 05/12/19 11:51: Bedside Glucose (Misc Panel) 142H 05/12/19 17:01: Bedside Glucose (Misc Panel) 134H CBC/BMP Laboratory Tests 05/11/19 19:51 Red Blood Count 3.89 L, Mean Corpuscular Volume 102.1 H, Mean Corpuscular Hemoglobin 32.4, Mean Corpuscular Hemoglobin Concent 31.7 L, Red Cell Distribution Width 13.7, Neutrophils (%) (Auto) 70.3 H, Lymphocytes (%) (Auto) 18.3 L, Monocytes (%) (Auto) 7.8 H, Eosinophils (%) (Auto) 2.8, Basophils (%) (Auto) 0.5, Neutrophils # (Auto) 5.4, Lymphocytes # (Auto) 1.4 L, Monocytes # (Auto) 0.6, Eosinophils # (Auto) 0.2, Basophils # (Auto) 0.0 05/12/19 05:58 Red Blood Count 3.31 L, Mean Corpuscular Volume 104.5 H, Mean Corpuscular Hemoglobin 33.5 H, Mean Corpuscular Hemoglobin Concent 32.1, Red Cell Distribution Width 13.7, Calcium Level 8.3 L, Aspartate Amino Transf (AST/SGOT) 19, Alanine Aminotransferase (ALT/SGPT) 40, Alkaline Phosphatase 151 H, Total Bilirubin 0.4 #, Total Protein 5.7 L, Albumin 2.2 #L SMILEY EVERETT MD May 12, 2019 19:53
--- NOTE | 2019-05-12 21:27 | CR ---
DATE OF CONSULTATION: 05/12/2019 REQUESTING PHYSICIAN: Dr. Manuel Alaniz CONSULTING PHYSICIAN: Dr. Castro REASON FOR CONSULTATION: Management of acute kidney injury superimposed on chronic kidney disease stage III and chronic hyponatremia. CHIEF COMPLAINT: The patient presented to the hospital yesterday with progressive shortness of breath. HISTORY OF PRESENT ILLNESS: Shanti Sow is an 83-year-old female with past medical history of her chronic kidney disease, stage III, with a baseline creatinine of 0.921, history of hypertension, chronic hyponatremia requiring Lasix and salt tablet, hypothyroidism, diabetes mellitus, type 2, well known to nephrology service from previous hospitalization and from outpatient clinic. She presented to the hospital yesterday with progressive shortness of breath, chronic active smoker, who initially presented to urgent care with possible bronchitis but at the urgent care she was found to be bradycardic with heart rate in 40s. She was transferred to the [facility] Emergency Room for bradycardia. Further evaluation showed that she had complete heart block. The case was discussed with cardiology argon tester. The patient was started on dobutamine infusion and admitted to intensive care unit (ICU). Of note, her labs done on arrival showed a creatinine of 1.4, so nephrology service was called for further help in the management of this patient with acute kidney injury superimposed on chronic kidney disease, stage III. Because of bradycardia, the patient was found to be in congestive heart failure. She was started on intravenous (IV) Lasix injections as well in addition to dobutamine drip. I saw and evaluated the patient today morning at the bedside in the ICU. She is awake and alert. Her family was also present at the bedside. She continues to be on dobutamine infusion. She has a Sterling catheter with Lasix injections. Her urine output is improving. She is currently hemodynamically stable apart from bradycardia, requiring dobutamine infusion. PAST MEDICAL HISTORY: 1. Chronic kidney disease, stage III. 2. Diabetes mellitus, type 2. 3. Chronic hyponatremia. 4. Hypothyroidism. 5. Hyperlipidemia. 6. Coronary artery disease and history of myocardial infarction (OH) in the past. PAST SURGICAL HISTORY: 1. Status post a right-sided carotid endarterectomy. 2 Status post iliac stenting. 3. Status post cataract surgery. 4. History of colostomy placement and reversal in the past. ALLERGIES: The patient is allergic to PENICILLIN and HYDROCHLOROTHIAZIDE. FAMILY HISTORY: No significant family history of end-stage renal disease requiring hemodialysis. SOCIAL HISTORY: The patient is an active smoker. She still smokes about one pack per day. She denies any illicit drug abuse or alcohol abuse. REVIEW OF SYSTEMS: CONSTITUTIONAL: Patient reports feeling weak and tired. EYES: She denies any blurry vision, double vision. ENT: She denies any dysphagia, odynophagia. CARDIOVASCULAR: She did present with bradycardia and heart block. RESPIRATORY: She does report she had shortness of breath yesterday, but it is getting better today after diuresis. GASTROINTESTINAL: She denies any nausea, vomiting. GENITOURINARY: She denies any dysuria or hematuria. MUSCULOSKELETAL: She denies any muscle aches and pains. SKIN: She denies any rashes or ulcers. ENDOCRINE: She reports history of hypothyroidism. HEMATOLOGIC/ONCOLOGIC: She denies any easy bleeding or bruising. CENTRAL NERVOUS SYSTEM: She denies any strokes or seizure. All other review of systems is negative. PHYSICAL EXAMINATION: GENERAL: The patient is awake, alert, oriented times three, lying in bed. VITAL SIGNS: Temperature is 97.2 degrees Fahrenheit, blood pressure 141/62, pulse is 41, respiratory rate of 16, saturating 96% on nasal cannula at 2 liters. Intake and output: Urine output recorded is 350 mL yesterday, 1600 mL so far today since overnight. HEAD AND NECK: Extraocular muscles intact. Pupils equally round and reactive to light. Mucous membranes are moist. Neck is supple. There is mildly elevated jugular venous distention (JVD). There is a old surgical scar from right-sided carotid endarterectomy. CARDIOVASCULAR: The patient has bradycardia. No significant edema of the bilateral lower extremities. RESPIRATORY: Mildly decreased breath sounds at the bases with mild inspiratory crackles at the bases. ABDOMEN: Soft. Positive bowel sounds. Nontender. No organomegaly. GENITOURINARY: Patient has an indwelling Sterling catheter. MUSCULOSKELETAL: No clubbing or cyanosis. CENTRAL NERVOUS SYSTEM: No focal deficit. Power is 5/5 in all extremities. SKIN: No rashes or ulcers. LABORATORY REVIEW: CBC showed WBC 6, hemoglobin 11.1, platelets are 119. ABG done today morning showed pH of 7.44, pCO2 of 36, pO2 of 90, bicarbonate is 26, oxygen saturation is 97.3%. BMP done on arrival showed sodium 139, potassium 44.7, chloride 105, bicarbonate 30, BUN 27, creatinine 1.4, calcium 8.7. Pro-BNP on arrival was 16,939. TSH of 25. BMP done today morning showed sodium 140, potassium 4.3, chloride 108, bicarbonate 24, BUN 28, creatinine is 1.2. IMAGING STUDIES: A chest x-ray was done yesterday at night, which showed congestive heart failure (CHF) with bilateral infiltrates. CURRENT INPATIENT MEDICATIONS: The patient's medications include: - dobutamine drip - Tylenol as needed - aspirin 81 mg daily - She was getting Lasix 40 mg IV every 8 hours. I have changed it to 40 mg IV every 12 hours, because patient was complaining of leg cramps. - She is on heparin subcutaneous - insulin sliding scale - She was given levothyroxine 100 mcg IV times one dose, and then dose has been increased to 200 mcg by mouth daily. - vitamin D 1000 units by mouth daily ASSESSMENT: An 83-year-old female with history of chronic kidney disease, stage III, type 2 diabetic, hypertension, hypothyroidism, and history of syndrome of inappropriate antidiuretic hormone secretion (SIADH), admitted at this time with complete heart block, severe hypothyroidism, and acute kidney injury superimposed on chronic kidney disease, stage III. PLAN: 1. Acute kidney injury superimposed on chronic kidney disease, stage III. Most likely secondary to hemodynamic instability, symptomatic bradycardia, heart block, and congestive heart failure. The patient continues to be dobutamine drip. She was diuresed yesterday. Renal function is improving. Creatinine is down to 1.2. Her baseline creatinine is 1. 2. Acute decompensated congestive heart failure and pulmonary edema. It is secondary to complete heart block. The patient is being diuresed. Now she is complaining of leg cramps. I have decreased the Lasix dose to 40 mg IV every 12 hours. 3. Complete heart block. The patient's beta jorge has been stopped. She is currently on dobutamine. Cardiology is planning to place a pacemaker. 4. Severe hypothyroidism. The patient likely is either taking the wrong dose or is noncompliant with the levothyroxine. She was already given IV levothyroxine 100 mcg, and dose has been increased to 200 mcg daily. 5. Diabetes mellitus, type 2. Continue insulin sliding scale. Metformin is on hold because of acute renal failure. 6. History of hypertension. The patient came in hypotensive and with bradycardia. Antihypertensive medications are on hold. Beta jorge is also stopped because of complete heart block. 7. History of SIADH and chronic hyponatremia. As per clinic notes, there was an attempt to decrease her Lasix and salt tablets; however, her sodium dropped. Right now patient is being diuresed with high-dose Lasix and it is unlikely she would develop SIADH, so salt tablets are on hold. Thank you for involving me in the care of this patient. I shall be happy to follow the patient along with you tomorrow morning. Total critical care time spent in the management of this patient today morning in the ICU was 45 minutes.
[2019-05-12 22:29] LABS: ALBUMIN 2.2 GM/DL (3.2-5.2); CALCIUM LEVEL 8.4 MG/DL (8.8-10.2); CREATININE FOR GFR 1.26 MG/DL (0.55-1.30); MAGNESIUM LEVEL 2.1 MG/DL (1.8-2.4); PHOSPHORUS LEVEL 3.7 MG/DL (2.5-4.9)
[2019-05-13] VITALS (21 sets, daily range): BP systolic 93–191; BP diastolic 45–105
[2019-05-13 04:59] LABS: MEAN CORPUSCULAR HEMOGLOBIN 32.4 pg (27.0-33.0); MEAN CORPUSCULAR HGB CONC 32.4 g/dl (32.0-36.5); PLATELET COUNT, AUTOMATED 247 10^3/uL (150-450); WHITE BLOOD COUNT 7.6 10^3/uL (4.0-10.0)
[2019-05-13 05:26] LABS: CALCIUM LEVEL 8.3 MG/DL (8.8-10.2); CREATININE FOR GFR 1.29 MG/DL (0.55-1.30); GLOMERULAR FILTRATION RATE 41.8 (>32); POTASSIUM SERUM 4.1 MEQ/L (3.5-5.1)
[2019-05-13 05:34] LABS: FREE T4 1.23 NG/DL (0.76-1.46)
[2019-05-13] MEDS ORDERED: LR 1,000 ML IV SCH ×2 (06:00→14:30)
[2019-05-13] MEDS: LEVOTHYROXINE 100MCG TABLET (0.1MG) PO SCH (06:05)
--- NOTE | 2019-05-13 07:24 | ECGEPIP ---
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
[2019-05-13] MEDS: HumaLOG INSULIN (NovoLOG) PER UNIT SC SCH ×4 (07:30→21:00)
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
[2019-05-13 09:56] LABS: TOTAL T3 42.7 NG/DL (60.0-181.0)
[2019-05-13] MEDS ORDERED: dexameTHASONE 4 MG/ML 1ML VIAL (J1100) As Ordered ONE (11:17)
[2019-05-13] MEDS ORDERED: ONDANSETRON 4MG/2ML VIAL (J2405) As Ordered ONE (11:17)
[2019-05-13] MEDS ORDERED: PROPOFOL 200 MG/20 ML VIAL As Ordered ONE (11:17)
[2019-05-13] MEDS ORDERED: LIDOCAINE 2% INJ 100 MG/5 ML SDV (FOR ANES.) As Ordered ONE (11:17)
[2019-05-13] MEDS ORDERED: MIDAZOLAM INJ 2 MG/2 ML VIAL (J2250) As Ordered ONE (11:22)
[2019-05-13] MEDS ORDERED: fentaNYL 100 MCG/2 ML INJECTION (J3010) As Ordered ONE (11:22)
[2019-05-13] MEDS ORDERED: LIDOCAINE 1% SDV INJ 30 ML VIAL As Ordered ONE (11:28)
[2019-05-13] MEDS ORDERED: ISOVUE-300 61% 50ML VIAL (Q9967) As Ordered ONE (11:34)
[2019-05-13] MEDS ORDERED: AMIODARONE HCL 360 MG/200 ML PREMIXED BAG (NEXTERONE) As Ordered ONE (11:34)
[2019-05-13] MEDS ORDERED: BACITRACIN PWD 50,000 UNITS VIAL As Ordered ONE (11:34)
[2019-05-13] MEDS ORDERED: METOCLOPRAMIDE INJ 10MG/2ML VIAL (J2765) IV PRN (14:30)
[2019-05-13] MEDS ORDERED: PROMETHAZINE INJ 25 MG/ML VIAL (J2550) IV PRN (14:30)
[2019-05-13] MEDS ORDERED: oxyCODONE 5MG TAB PO PRN (14:30)
[2019-05-13] MEDS ORDERED: fentaNYL 100 MCG/2 ML INJECTION (J3010) IV PRN (14:30)
[2019-05-13] MEDS ORDERED: ceFAZolin 1GM INJ (J0690 PER 500MG) As Ordered ONE (14:30)
--- NOTE | 2019-05-13 14:48 | RO ---
DATE OF PROCEDURE: 05/13/2019 PROCEDURE: Implantation of permanent dual-chamber pacemaker. IMPLANTING GARMENT MANUFACTURER: Dr. Vasquez ANESTHESIOLOGIST: Dr. Cm PREOPERATIVE DIAGNOSIS: Complete heart block. POSTOPERATIVE DIAGNOSIS: Complete heart block. TYPE OF ANESTHESIA: Monitored local anesthesia. DESCRIPTION OF PROCEDURE: The patient, in the fasting state, having signed informed consent and receiving Ancef 2 grams IV premedication, the patient was taken to the operating theater. Numerous skin electrodes were applied to facilitate continuous electrocardiographic monitoring. The left subclavian region was prepped and draped in the usual fashion and the skin was infiltrated with 1% Xylocaine. The left axillary vein was catheterized using the micropuncture technique. A 5-cm linear incision was made several centimeters below and parallel to the left clavicle. Dissection was carried down below the pectoralis fascia. A pocket was fashioned below the level of the incision line. Two bipolar active fixation steroid eluting pacing leads were then positioned to the high right ventricular outflow tract and the high right atrial appendage under fluoroscopic and electrocardiographic control. The right ventricular lead ([employer] model number [id number], serial number [id number]) measurements were: Stimulation threshold 0.75 V / 0.4 ms/ impedance 650 ohms. The R wave amplitude measured at greater than 12.0 mV. The atrial lead ([employer] model number [id number], serial number [id number]) measurements were: Stimulation threshold 0.75 V / 0.4 ms / impedance 510 ohms. The P wave amplitude measured 3.1 mV. These leads were secured in position with sleeves sutured at their insertion site. They were then connected to a dual-chamber pulse generator ([employer] - Assurity MRI compatible, mode number [id number], serial number [id number]) and appropriate DDP pacing was documented. The generator was placed in the pocket and secured in position with a suture through the right hand corner of the epoxy header. The subcutaneous tissues were approximated using a running chromic suture. The skin was closed using aman. A dry dressing was applied. The patient was returned to the recovery room in good condition. No apparent complications. ESTIMATED BLOOD LOSS: Less than 10 mL. Our plan is to monitor on telemetry overnight. Her postoperative portable upright chest x-ray showed good lead placement with no pneumothorax. Her EKG in the recovery room showed sinus rhythm at 85 beats per minute with atrial sensing and tracking with consistent ventricular pacing. Paced QRS complexes had a normal axis and LVEDP configuration in keeping with RV outflow flow track stimulation. She will be receiving additional three doses of Ancef 1 gram IV q.8 h. She will be kept in bed with bedside commode until tomorrow morning with a sling for her left arm. We are cautiously optimistic that she will be able to be discharged later tomorrow afternoon. Thank you, Enrique Vasquez MD, [facility]
--- NOTE | 2019-05-13 15:17 | IPNPDOC ---
Text Note Date of Service The patient was seen on 05/13/19. NOTE Pt was seen and examined at bedside. Pt denies any dyspnea or tachypnea. Denies any dizziness, syncope event or lightheadedness. Pt denies any chest pain at present. VS was reviewed HR at 40s. On Dobutamine drip as per cardiology. Pt is planned to undergo dual chamber pacemaker in PM. SBP in 100s likely sec to vasodilator effect of Dobutamine. PHE: General : pt is elderly lady awake alert and oriented x3, comfortable in bed , no acute distress HEENT: ANAYA EOMI neck supple no JVD no icterus CVS: S1 S2 Lungs: good air entry no wheezing no rales bilateral Abdomen: soft NT ND Ext: no edema no tenderness no cyanosis Neuro: motor sensory grossly intact Psych: mood and effect appropriate Vital Signs Date Time Temp Pulse Resp B/P (MAP) Pulse Ox O2 Delivery O2 Flow Rate FiO2 05/13/19 14:10 80 16 111/61 (78) 93 3 05/13/19 13:56 97.7 91 18 103/57 (72) 91 3 05/13/19 12:15 45 18 109/51 (70) 94 2.0 05/13/19 12:00 2.0 05/13/19 11:00 40 107/56 (73) 95 05/13/19 10:00 41 18 113/55 (74) 96 2.0 05/13/19 09:00 40 18 108/51 (70) 96 2.0 05/13/19 08:00 2.0 05/13/19 08:00 97.0 41 22 111/56 (74) 96 2.0 05/13/19 07:00 44 20 108/54 (72) 94 2.0 05/13/19 06:00 98.0 43 95/50 (65) 94 2.0 05/13/19 05:00 45 18 96/46 (63) 92 2.0 05/13/19 04:15 97.6 38 18 99/62 (74) 92 2.0 05/13/19 04:00 2.0 05/13/19 03:00 97.9 47 18 113/56 (75) 95 2.0 05/13/19 02:00 98.2 41 18 98/48 (65) 92 2.0 05/13/19 01:00 41 18 93/46 (62) 90 2.0 05/13/19 00:00 2.0 05/13/19 00:00 40 18 95/45 (62) 95 2.0 05/12/19 23:00 41 18 100/54 (69) 94 2.0 05/12/19 22:00 43 18 96/51 (66) 93 2.0 05/12/19 21:00 44 18 112/62 (79) 96 2.0 05/12/19 20:00 2.0 05/12/19 20:00 46 18 115/55 (75) 94 2.0 05/12/19 19:00 97.8 42 98/46 (63) 94 2.0 05/12/19 18:00 42 16 91/43 (59) 94 2.0 05/12/19 17:00 40 17 113/55 (74) 96 2.0 05/12/19 16:00 2.0 05/12/19 16:00 97.2 41 16 141/62 (88) 96 2.0 05/12/19 15:00 41 16 106/46 (66) 95 2.0 Intake & Output 05/13/19 05:59 Intake Total 1159 ml Output Total 2450 ml Balance -1291 ml Laboratory Tests 05/12/19 17:01: Bedside Glucose (Misc Panel) 134H 05/12/19 20:58: Bedside Glucose (Misc Panel) 101 05/12/19 21:58: Blood Urea Nitrogen 25H, Creatinine 1.26, Sodium Level 142, Potassium Level 4.0, Chloride Level 105, Carbon Dioxide Level 28, Anion Gap 9, Glomerular Filtration Rate 43.0, Fasting Glucose 103H, Calcium Level 8.4L, Phosphorus Level 3.7, Magnesium Level 2.1, Albumin 2.2L 05/13/19 04:47: Blood Urea Nitrogen 24H, Creatinine 1.29, Sodium Level 141, Potassium Level 4.1, Chloride Level 104, Carbon Dioxide Level 30, Anion Gap 7L, Glomerular Filtration Rate 41.8, Fasting Glucose 110H, Calcium Level 8.3L, White Blood Count 7.6, Red Blood Count 3.40L, Hemoglobin 11.0L, Hematocrit 34.0L, Mean Corpuscular Volume 100.0H, Mean Corpuscular Hemoglobin 32.4, Mean Corpuscular Hemoglobin Concent 32.4, Red Cell Distribution Width 13.8, Platelet Count 247, Nucleated Red Blood Cells % (auto) 0.0, IM-Txm-F-Type Natriuretic Peptide 71264P, Free Thyroxine 1.23, Total Triiodothyronine 42.7L Current Medications Medications (Trade) Dose Ordered Sig/Cristina Route PRN Reason Start Time Stop Time Status Last Admin Dose Admin Acetaminophen (Tylenol Tab) 650 mg Q4HP PRN PO PAIN OR FEVER 05/11/19 22:00 05/12/19 13:57 650 MG Aspirin (Ecotrin) 81 mg DAILY PO 05/12/19 09:00 05/12/19 08:02 81 MG Insulin Human Lispro (HumaLOG INSULIN) SEE PROTOCOL TABLE AC SC 05/12/19 07:30 05/12/19 17:04 2 UNITS Levothyroxine Sodium (Synthroid) 200 mcg DAILY@0600 PO 05/12/19 06:00 05/13/19 06:05 200 MCG Vitamin D (Vitamin D) 1,000 units DAILY PO 05/12/19 09:00 05/12/19 08:02 1,000 UNITS A/P 1-Bradycardia sec to completed heart block as per EKGs in the chart HR 30-40 likely sec to betablocker use Pt is clinically asymptomatic with no episode of syncope or dizziness, SBP 110s DBP 50s Cardiology on board , recommendations appreciated s/p dual chamber pacemaker placement, close clinical monitoring, frequent VS DC Dobutamine Hold all betablocking agents 2-Clinical CHF as per volume status, [place] [id number] 2DECho pending Cont diuresis Cont strict intake and output Monitor closely 3-Hypothyroidism Pt with very high TSH on admission TSH 24 Free T4 1.23, T3 42.7 Cont Levothyroxin 200mcg repeat TSH in 2-3 days Pt is awake and alert, no confusion 4-HTN Currently hypotensive borderline hold BP meds 5-T2DM FS AC HS Insulin short acting per SS 6-Chronic active tobacco use Counseling Nicotine patch 7-Chronic Hyponatremia Na range of 140 now Cont monitor closely 8-CHRIS on CKD III likely sec to decompensated CHF, diuretic use Cr improving now to pt baseline Nephrology following pt , recommendations appreciated DVT prophylaxis:Hep sc SW/CM PT/OT Disposition: possible 1 or 2 days pending volume status, stable CKD, no complication on pacemaker VS,Fishbone, I+O VS, Fishbone, I+O Laboratory Tests 05/12/19 21:58 Anion Gap 9 05/13/19 04:47 Red Blood Count 3.40 L, Mean Corpuscular Volume 100.0 H, Mean Corpuscular Hemoglobin 32.4, Mean Corpuscular Hemoglobin Concent 32.4, Red Cell Distribution Width 13.8, Calcium Level 8.3 L Vital Signs Date Time Temp Pulse Resp B/P (MAP) Pulse Ox O2 Delivery O2 Flow Rate FiO2 05/13/19 14:10 80 16 111/61 (78) 93 3 05/13/19 13:56 97.7 05/11/19 22:01 Nasal Cannula I&O- Last 24 Hours up to 6 AM 05/13/19 05:59 Intake Total 1159 ml Output Total 2450 ml Balance -1291 ml CIRILO VO MD May 13, 2019 15:03
[2019-05-13] MEDS: ASPIRIN 81 MG ENTERIC TAB PO SCH (15:34)
[2019-05-13] MEDS: VITAMIN D 1,000 INTERNATIONAL UNITS TABLET PO SCH (15:34)
--- NOTE | 2019-05-13 15:37 | REP ---
CHEST, SINGLE VIEW: Single portable view of the chest is performed and compared to prior study of 05/11/2019. There are again diffuse bilateral infiltrates, possibly slightly increased in the upper lobes. Heart is enlarged. There is calcification and tortuosity of the thoracic aorta. Metallic plate and screws are seen in the right clavicle. There is a left dual lead pacemaker now seen. There is no pneumothorax. Electronically Signed by Ashu Cheung MD 05/13/2019 04:37 P
[2019-05-13] MEDS ORDERED: SLF 3 ML SYR IV PRN (16:15)
--- NOTE | 2019-05-13 16:18 | ECHO ---
DATE OF PROCEDURE: 05/12/2019 AGE: 83 GENDER: Female HEIGHT: 60 inches WEIGHT: 134 pounds BODY SURFACE AREA: 1.57 m2 PATIENT LOCATION: Inpatient, ICU, room 3209 REFERRING PHYSICIAN: Manuel Alaniz MD INDICATION: Abnormal EKG. Hypertensive heart disease. Murmurs. 2-D MEASUREMENTS: RV: 3.6 cm Right ventricular free wall thickness: 0.8 cm LV: 3.9 cm Septum: 1.4 cm Posterior wall: 1.4 cm Aortic root: 2.6 cm LA: 4.2 cm LVEF: 85% DOPPLER MEASUREMENTS: AV: 1.6 m/s LVOT: 0.99 m/s LVOT diameter: 1.9 cm MV-E: 149 Early mitral deceleration time: 280 ms Unable to evaluate other parameters to assess LV diastolic function in light of complete heart block. PV: not well visualized. RVSP: 56 - 61 mmHg IVC: 2.2 cm COMMENTS Underlying sinus rhythm with complete heart block. Relatively narrow escape junctional beats at 46 bpm. M-mode and two-dimensional echocardiography was performed with pulsed, continuous wave, color flow and tissue Doppler studies. Moderate concentric left ventricular hypertrophy with hyperkinetic wall motion. At least moderately dilated left atrium. Unable to assess diastolic dysfunction with complete heart block, but undoubtedly mean left atrial pressure is elevated. Normal right ventricular chamber size, but at least mild right ventricular hypertrophy with hyperkinetic wall motion and Doppler evidence of at least moderate to moderately severe pulmonary hypertension. Mildly dilated IVC size with reduced respiratory collapse in keeping with elevated central venous pressure. Moderate aortic valvular sclerosis without stenosis or insufficiency. Moderately severe mitral annular calcification with at least moderate insufficiency. Normal appearing tricuspid valve with at least mild insufficiency. No apparent separate intracardiac mass or pericardial effusion.
[2019-05-13] MEDS ORDERED: ATENOLOL 25 MG TAB As Ordered ONE (16:52)
[2019-05-13] MEDS: ATENOLOL 25 MG TAB PO SCH (17:03)
[2019-05-13] MEDS: ceFAZolin SOD 1 GM in D5W MINI-BAG PLUS 50 ML IV SCH (21:06)
[2019-05-13] MEDS: ACETAMINOPHEN TAB 650MG DOSE (2X325MG) PO PRN (21:07)
[2019-05-13] MEDS: SLF 3 ML SYR IV SCH (21:32)
--- NOTE | 2019-05-13 23:23 | IPN ---
DATE: 05/13/2019 SUBJECTIVE The patient was seen and examined at the bedside today morning. She is afebrile. She continues to be on dobutamine. Pulse rate continues to be in 40s. Renal function is stable. Creatinine fluctuating at around 1.2. She still has a good urine output. The patient is awaiting dual-chamber pacemaker placement today in the afternoon. Her sodium level is stable. He continues to be on diuretics twice a day. OBJECTIVE Vital signs: Temperature is 97 degrees Fahrenheit, blood pressure 111/56, pulse is 41, respiratory rate of 22, saturating 96% on 2 liters by nasal cannula. Intake and output: Urine output recorded is 1850 mL yesterday, 1 liter so far today since overnight. Weight in the bed scale is 59.2 kg. PHYSICAL EXAMINATION General: The patient is awake, alert, oriented times three, laying in bed, in no apparent distress. Head and neck examination: Extraocular muscles intact. Pupils equally round and reactive to light. Mucous membranes are moist. Neck is supple. There is no JVD. Cardiovascular: S1, S3. Regular rate. Trace edema of the bilateral lower extremities. Respiratory: Mildly decreased breath sounds at the bases with mild inspiratory crackles at the bases. Abdomen: Soft. Positive bowel sounds. No organomegaly. Genitourinary: Patient has an indwelling Sterling catheter. Musculoskeletal: No clubbing or cyanosis. SENIOR BENEFITS MANAGER: No focal deficit. Power is 5/5 in bilateral upper extremities. LAB REVIEW: CBC showed WBC 7.6, hemoglobin is 11, platelets are 247. BMP showed sodium 141, potassium 4.1, chloride 104, bicarb 30, BUN 44, creatinine is 1.29, calcium 8.3. Pro-BNP is 13,010. CURRENT INPATIENT MEDICATIONS The patient's medications were all reviewed by me. She continues to be on dobutamine drip. She is also on Lasix twice a day. She is on Levothyroxine 200 mcg daily. ASSESSMENT/PLAN 1. Acute kidney injury superimposed on chronic kidney disease, stage III. It is secondary to complete heart block, bradycardia, decompensated heart failure. Her renal function is stable, currently on dobutamine drip. It is expected to improve back to baseline once the patient gets the pacemaker. 2. Acute decompensated congestive heart failure. The patient is currently being diuresed with Lasix 40 mg IV twice a day. She continues to be on dobutamine. Heart failure would improve with improvement in the pulse rate. 3. Complete heart block. The patient continues to be on dobutamine. She will get dual-chamber chamber pacemaker placement in the afternoon by cardiology. 4. Severe hypothyroidism. Patient's levothyroxine dose has already been increased to 200 mcg daily. 5. History of syndrome of inappropriate secretion of antidiuretic hormone (SIADH). The patient's salt tablet is on hold. She was getting IV diuretics. Sodium level is stable at 141. I will continue to follow her electrolytes for now.
[2019-05-14] VITALS (7 sets, daily range): BP systolic 97–180; BP diastolic 6–84
[2019-05-14] MEDS ORDERED: LISINOPRIL 10 MG TAB PO ONE (04:30)
[2019-05-14 05:11] LABS: HEMATOCRIT 36.8 % (36.0-47.0); HEMOGLOBIN 11.9 g/dl (12.0-15.5); MEAN CORPUSCULAR HEMOGLOBIN 33.3 pg (27.0-33.0); MEAN CORPUSCULAR HGB CONC 32.3 g/dl (32.0-36.5); MEAN CORPUSCULAR VOLUME 103.1 fl (80.0-96.0); PLATELET COUNT, AUTOMATED 282 10^3/uL (150-450); RED BLOOD COUNT 3.57 10^6/uL (4.00-5.40); WHITE BLOOD COUNT 7.5 10^3/uL (4.0-10.0)
[2019-05-14] MEDS ORDERED: SPIRONOLACTONE 25 MG TAB PO ONE (05:15)
[2019-05-14] MEDS ORDERED: FUROSEMIDE 40 MG/4 ML VIAL (J1940) IV ONE (05:15)
[2019-05-14] MEDS: ceFAZolin SOD 1 GM in D5W MINI-BAG PLUS 50 ML IV SCH ×2 (05:29→14:14)
[2019-05-14] MEDS: LEVOTHYROXINE 100MCG TABLET (0.1MG) PO SCH (05:29)
[2019-05-14] MEDS: SLF 3 ML SYR IV SCH ×3 (05:29→20:48)
[2019-05-14 06:25] LABS: CALCIUM LEVEL 9.2 MG/DL (8.8-10.2); CREATININE FOR GFR 1.11 MG/DL (0.55-1.30); GLOMERULAR FILTRATION RATE 49.7 (>32); POTASSIUM SERUM 4.5 MEQ/L (3.5-5.1); THYROID STIMULATING HORMONE 10.6 uIU/ML (0.358-3.740)
[2019-05-14] MEDS: HumaLOG INSULIN (NovoLOG) PER UNIT SC SCH ×4 (07:30→20:39)
[2019-05-14] MEDS: VITAMIN D 1,000 INTERNATIONAL UNITS TABLET PO SCH (07:56)
[2019-05-14] MEDS: ATENOLOL 25 MG TAB PO SCH (07:56)
[2019-05-14] MEDS: ASPIRIN 81 MG ENTERIC TAB PO SCH (07:56)
--- NOTE | 2019-05-14 08:59 | REP ---
Clinical: Status post pacemaker placement. Technique: PA and lateral. Comparison: 05/13/2019. Findings: Dual lead pacemaker identified in stable position. No pneumothorax. Bilateral lower lobe infiltrates with small effusions and air-fluid level in moderate hiatal hernia identified. Skeletal structures stable. Impression: 1. Stable pacemaker. No pneumothorax. 2. Bilateral lower lobe infiltrates with small pleural effusions increased from prior examination. 3. Moderate hiatal hernia with air-fluid level now identified. Electronically Signed by Jimenez Sharma MD 05/14/2019 08:51 A
[2019-05-14] MEDS: LISINOPRIL 10 MG TAB PO SCH ×2 (10:45→20:47)
[2019-05-14] MEDS: FUROSEMIDE 40 MG/4 ML VIAL (J1940) IV SCH ×2 (10:46→17:14)
[2019-05-14] MEDS: SPIRONOLACTONE 25 MG TAB PO SCH (10:46)
[2019-05-14] MEDS: ACETAMINOPHEN TAB 650MG DOSE (2X325MG) PO PRN (10:54)
--- NOTE | 2019-05-14 12:43 | IPN ---
CARDIOLOGY PROGRESS NOTE DATE: 05/14/2019 SUBJECTIVE: The patient has been up in her room and has been feeling well, has minimal incisional discomfort. Her breathing has significantly improved. She is anxious to be discharged home. OBJECTIVE: Somewhat cantankerous elderly lady, medium body build laying comfortably with the head of the bed elevated 30 degrees. Heart rate 74 bpm, blood pressure 160/80, respiratory 18, O2 saturation 92% on supplemental oxygen by nasal prongs. Curiously her weight is up 4 kg from yesterday though her intake and output balance registers a negative 110 mL, unfortunately both are incorrect. Neck veins were approximately 3 cm above sternal angle. Has reduced air entry and dullness left base posteriorly. A few scattered inspiratory rales lower lobes. Slight prolongation of expiration but no audible wheeze at this time. Pacemaker incision appears to be healing well without abnormal swelling, discharge or ecchymosis. Dressing was changed today. Has no more than +/- distal lower leg pitting. CHEST X-RAY: PA and left lateral study performed earlier today shows obvious cardiomegaly. Some calcification of her aortic arch and plump pulmonary vessels, pulmonary venous congestion and increased interstitial markings. Continues to have bilateral pleural effusions greater on the left than right. Her pacemaker pulse generator is located in the subclavian region and her atrial and ventricular pacing leads are stable in position. EKG: Tracing taken this morning reviewed independently shows a chiefly AV sequential pacing with isolated PVCs with appropriate sensed. Paced QRS complexes have a rightward axis and left ventricular end diastolic pressure (LVEDP) configuration in keeping with RV outflow tract stimulation. No significant change from the previous day. LABORATORY DATA: Blood work today shows a hemoglobin of 11.9 with normal white blood cell count and platelet count. Her electrolytes are in balance with serum sodium 138. Despite her negative output with diuretic therapy and improving pro-BNP level now 10,973 down from 13,000 yesterday, her BUN has normalized at 18 and a creatinine has normalized to 1.1. Fasting glucose this morning was 89. IMPRESSION/PLAN: 1. Heart failure (diastolic dysfunction/acute on chronic): Has responded well to IV Lasix but continues to have signs and radiographic features of biventricular heart failure. Her echocardiogram showed moderate concentric left ventricle hypertrophy with preserved systolic function. She is now on combination atenolol, lisinopril, spironolactone and for the time being IV Lasix twice a day. Her fluid status and chemistry will be monitored closely. 2. Complete heart block/dual-chamber pacemaker in situ: Her incision is healing well and she is not distressed. Complete pacemaker interrogation was performed today showing excellent intracardiac electrograms and pacing thresholds with anticipated battery longevity of more than 10 years. Her EKG confirms appropriate pacer function and her chest x-ray shows stable lead placement with no pneumothorax. This morning she was set up for a remote monitoring system. 3. Hypertensive heart disease (benign with heart failure): With mandaeism of normal AV sequential contraction her blood pressure has become quite elevated. I am confident this will be able to be controlled with a combination beta jorge, SORIN inhibitor, Lasix and spironolactone. As mentioned her renal function has normalized. She will remain on a modest salt and fluid intake restriction. 4. Coronary artery disease ([place] vessel)/history of remote myocardial infarction ([place]) : Despite her impressive blood pressure findings has remained free of chest pain. Serial EKGs do not show any evolutionary repolarization abnormalities even though these are paced. Her echocardiogram failed to show a localized wall motion abnormality, in fact wall motion was hyperkinetic. Will continue on protective beta-jorge, SORIN inhibitor, low-dose aspirin. She will also be started on atorvastatin 40 mg daily. 5. Mitral and aortic valve disorder (non-rheumatic): Her echocardiogram showed moderate aortic valvular sclerosis without stenosis or insufficiency. Moderately severe mitral annular calcification with at least moderate mitral insufficiency. Has no signs or symptoms of endocarditis. At this point, additional time will be taken to ensure she is euvolemic with controlled blood pressure prior to her discharge home. I am confident will be able to achieve this after an additional 48 hours. I have explained this to the patient and her daughter who appeared understand and agree.
--- NOTE | 2019-05-14 13:26 | ECGEPIP ---
[facility] Test Date: 2019-05-13 Pat Name: ESPINOZA DURHAM Department: Room: [place] [address] Gender: Female Harbormaster: JESSICA : 1935 Requested By: Enrique Vasquez Order Number: [id number] Reading MD: Frances Huber Measurements Intervals [place] Rate: 85 P: 42 OR: 180 QRS: 89 QRSD: 153 T: 269 QT: 446 QTc: 533 Interpretive Statements Atrial-sensed ventricular-paced rhythm ELECTRONIC VENTRICULAR PACEMAKER ABNORMAL RHYTHM ECG COMPARED TO 6:46 SAME DAY PACING REPLACED HIGH DGR. AV BLOCK Electronically Signed on 05-14-2019 13:26:54 EDT by Frances Huber
--- NOTE | 2019-05-14 13:32 | ECGEPIP ---
[facility] Test Date: 2019-05-14 Pat Name: ESPINOZA DURHAM Department: Room: [place] [address] Gender: Female Business Applications Developer: [email or web address] : 1935 Requested By: Enrique Vasquez Order Number: [id number] Reading MD: Frances Huber Measurements Intervals [place] Rate: 63 P: 168 SD: 213 QRS: 101 QRSD: 137 T: 268 QT: 525 QTc: 541 Interpretive Statements AV SEQUENTIAL PACING WITH SINGLE PVC ELECTRONIC ATRIAL PACEMAKER ELECTRONIC VENTRICULAR PACEMAKER ABNORMAL RHYTHM ECG SIMILAR TO 05/13/19 BUT FOR NOW APPARENT ATRIAL PACING Electronically Signed on 05-14-2019 13:31:43 EDT by Frances Huber
--- NOTE | 2019-05-14 19:00 | IPNPDOC ---
Text Note Date of Service The patient was seen on 05/14/19. NOTE Pt was seen and examined at bedside. Pt denies any dyspnea or tachypnea. Denies any dizziness, syncope event or lightheadedness. Pt denies any chest pain at present. s/p pacemaker placement no events no complications. PHE: General : pt is elderly lady awake alert and oriented x3, comfortable in bed , no acute distress HEENT: ANAYA EOMI neck supple no JVD no icterus CVS: S1 S2 Lungs: good air entry no wheezing no rales bilateral Abdomen: soft NT ND Ext: no edema no tenderness no cyanosis Neuro: motor sensory grossly intact Psych: mood and effect appropriate Vital Signs Date Time Temp Pulse Resp B/P (MAP) Pulse Ox O2 Delivery O2 Flow Rate FiO2 05/14/19 16:00 97.0 57 18 134/6 (48) 90 05/14/19 16:00 0.0 05/14/19 12:00 97.2 58 18 160/68 (98) 92 05/14/19 12:00 0.0 05/14/19 10:45 164/80 05/14/19 09:00 164/80 (108) 05/14/19 08:00 0.0 05/14/19 08:00 97.5 60 18 180/84 (116) 92 05/14/19 07:56 60 180/84 05/14/19 06:47 170/64 (99) 90 05/14/19 05:29 174/65 05/14/19 04:00 2.0 05/14/19 04:00 96.0 61 18 174/65 (101) 91 3.0 05/14/19 00:00 2.0 05/13/19 23:59 97.7 60 18 168/66 (100) 96 3.0 05/13/19 20:00 2.0 05/13/19 20:00 97.3 72 20 166/69 (101) 96 3.0 Intake & Output 05/14/19 06:00 Intake Total 890 ml Output Total 250 ml Balance 640 ml Laboratory Tests 05/13/19 20:59: Bedside Glucose (Misc Panel) 145H 05/14/19 04:42: White Blood Count 7.5, Red Blood Count 3.57L, Hemoglobin 11.9L, Hematocrit 36.8, Mean Corpuscular Volume 103.1H, Mean Corpuscular Hemoglobin 33.3H, Mean Corpuscular Hemoglobin Concent 32.3, Red Cell Distribution Width 13.2, Platelet Count 282, Nucleated Red Blood Cells % (auto) 0.0, Blood Urea Nitrogen 18, Creatinine 1.11, Sodium Level 138, Potassium Level 4.5, Chloride Level 103, Carbon Dioxide Level 30, Calcium Level 9.2, Anion Gap 5L, Glomerular Filtration Rate 49.7, Fasting Glucose 89, GZ-Kfl-B-Type Natriuretic Peptide 50915W, Thyroid Stimulating Hormone (TSH) 10.600H 05/14/19 12:15: Bedside Glucose (Misc Panel) 127H 05/14/19 16:49: Bedside Glucose (Misc Panel) 72L Current Medications Medications (Trade) Dose Ordered Sig/Cristina Route PRN Reason Start Time Stop Time Status Last Admin Dose Admin Acetaminophen (Tylenol Tab) 650 mg Q4HP PRN PO PAIN OR FEVER 05/11/19 22:00 05/14/19 10:54 650 MG Aspirin (Ecotrin) 81 mg DAILY PO 05/12/19 09:00 05/14/19 07:56 81 MG Atenolol (Tenormin) 25 mg DAILY PO 05/13/19 09:00 05/14/19 07:56 25 MG Furosemide (LASIX injection) 40 mg BID@09,17 IV 05/14/19 09:00 05/14/19 17:14 40 MG Insulin Human Lispro (HumaLOG INSULIN) SEE PROTOCOL TABLE AC SC 05/12/19 07:30 05/14/19 12:42 2 UNITS Levothyroxine Sodium (Synthroid) 200 mcg DAILY@0600 PO 05/12/19 06:00 05/14/19 05:29 200 MCG Lisinopril (Prinivil) 10 mg BID PO 05/14/19 09:00 05/14/19 10:45 10 MG Sodium Chloride (Saline Lock Flush) 2 ml SLF IV 05/13/19 22:00 05/14/19 14:14 2 ML Spironolactone (Aldactone) 25 mg QAM PO 05/14/19 09:00 05/14/19 10:46 25 MG Vitamin D (Vitamin D) 1,000 units DAILY PO 05/12/19 09:00 05/14/19 07:56 1,000 UNITS 1-Bradycardia sec to completed heart block as per EKGs in the chart HR 30-40 likely sec to betablocker use Pt is clinically asymptomatic with no episode of syncope or dizziness, SBP 110s DBP 50s Cardiology on board , recommendations appreciated s/p dual chamber pacemaker placement, close clinical monitoring, frequent VS DC Dobutamine Hold all betablocking agents 2-Clinical CHF as per volume status[place] [address] 2DECho pending Cont diuresis Cont strict intake and output Monitor closely 3-Hypothyroidism Pt with very high TSH on admission TSH 24 Free T4 1.23, T3 42.7 Cont Levothyroxin 200mcg repeat TSH in 2-3 days Pt is awake and alert, no confusion 4-HTN Currently hypotensive borderline hold BP meds 5-T2DM FS AC HS Insulin short acting per SS 6-Chronic active tobacco use Counseling Nicotine patch 7-Chronic Hyponatremia Na range of 140 now Cont monitor closely 8-CHRIS on CKD III likely sec to decompensated CHF, diuretic use Cr improving now to pt baseline Nephrology following pt , recommendations appreciated DVT prophylaxis:Hep sc SW/CM PT/OT Disposition: possible 1 or 2 days pending volume status, stable CKD, no complication on pacemaker VS,Fishbone, I+O VS, Fishbone, I+O Laboratory Tests 05/14/19 04:42 Red Blood Count 3.57 L, Mean Corpuscular Volume 103.1 H, Mean Corpuscular Hemoglobin 33.3 H, Mean Corpuscular Hemoglobin Concent 32.3, Red Cell Distribution Width 13.2, Calcium Level 9.2 Vital Signs Date Time Temp Pulse Resp B/P (MAP) Pulse Ox O2 Delivery O2 Flow Rate FiO2 05/14/19 16:00 97.0 57 18 134/6 (48) 90 05/14/19 16:00 0.0 05/11/19 22:01 Nasal Cannula I&O- Last 24 Hours up to 6 AM 05/14/19 06:00 Intake Total 890 ml Output Total 250 ml Balance 640 ml CIRILO VO MD May 14, 2019 19:00
[2019-05-14] MEDS ORDERED: ATORVASTATIN 20 MG TAB PO SCH (21:00)
[2019-05-15] VITALS: BP 100/61
[2019-05-15 04:00] VITALS: BP 121/55
[2019-05-15 04:58] LABS: HEMATOCRIT 38.4 % (36.0-47.0); HEMOGLOBIN 12.5 g/dl (12.0-15.5); MEAN CORPUSCULAR HEMOGLOBIN 33.5 pg (27.0-33.0); MEAN CORPUSCULAR HGB CONC 32.6 g/dl (32.0-36.5); MEAN CORPUSCULAR VOLUME 102.9 fl (80.0-96.0); PLATELET COUNT, AUTOMATED 290 10^3/uL (150-450); RED BLOOD COUNT 3.73 10^6/uL (4.00-5.40); WHITE BLOOD COUNT 7.2 10^3/uL (4.0-10.0)
[2019-05-15 05:22] LABS: ALBUMIN 2.5 GM/DL (3.2-5.2); BILIRUBIN,TOTAL 0.3 MG/DL (0.2-1.0); CALCIUM LEVEL 9.1 MG/DL (8.8-10.2); CREATININE FOR GFR 1.22 MG/DL (0.55-1.30); GLOMERULAR FILTRATION RATE 44.6 (>32); POTASSIUM SERUM 3.9 MEQ/L (3.5-5.1); TOTAL PROTEIN 6.3 GM/DL (6.4-8.2)
[2019-05-15] MEDS: LEVOTHYROXINE 100MCG TABLET (0.1MG) PO SCH (06:22)
[2019-05-15] MEDS: SLF 3 ML SYR IV SCH ×2 (06:23→13:16)
[2019-05-15] MEDS: HumaLOG INSULIN (NovoLOG) PER UNIT SC SCH ×3 (07:27→17:45)
[2019-05-15 08:00] VITALS: BP 131/60
[2019-05-15] MEDS: ASPIRIN 81 MG ENTERIC TAB PO SCH (08:53)
[2019-05-15] MEDS: VITAMIN D 1,000 INTERNATIONAL UNITS TABLET PO SCH (08:53)
[2019-05-15 08:54] VITALS: BP 131/60
[2019-05-15] MEDS: FUROSEMIDE 40 MG/4 ML VIAL (J1940) IV SCH (08:54)
[2019-05-15] MEDS: SPIRONOLACTONE 25 MG TAB PO SCH (08:54)
[2019-05-15] MEDS: ATENOLOL 25 MG TAB PO SCH (08:54)
[2019-05-15] MEDS: LISINOPRIL 10 MG TAB PO SCH (08:54)
[2019-05-15 12:00] VITALS: BP 136/59
[2019-05-15] MEDS: ACETAMINOPHEN TAB 650MG DOSE (2X325MG) PO PRN (15:48)
[2019-05-15 16:00] VITALS: BP 123/58
--- NOTE | 2019-05-15 16:09 | IPN ---
DATE: 05/15/2019 SUBJECTIVE: The patient was seen and examined at the bedside today, morning. She was actually sitting on the sofa. She could not be discharged yesterday because of her pulmonary edema. She needed intravenous (IV) Lasix, and her blood pressures are high. The patient reports that she is feeling better today. She actually wants to go home. Renal function is stable. Creatinine is 1.2 now. Sodium is also stable. Antihypertensive is being managed by cardiology. OBJECTIVE: Vital signs: Temperature is 97.2 degrees Fahrenheit. Blood pressure 136/59, pulse is 60, respiratory of 18, saturating 93% on room air. Intake and output: Urine output recorded is 2.2 liters yesterday, 2 liters so far today since overnight. Weight on the bed scale is 56 kg, which is not reliable because there is 7 kg difference from yesterday. PHYSICAL EXAMINATION: General: The patient is awake, alert, oriented times three, sitting up on the sofa in no apparent distress. Head and neck exam: Extraocular muscles intact. Pupils equally round and reactive to light. Mucous membranes are moist. Neck is supple. There is mildly elevated jugular venous distention (JVD). Cardiovascular: S1, S2, regular rate. Trace edema of the bilateral lower extremities. Respiratory: Decreased breath sounds at the bases with mild inspiratory crackles bilaterally at the bases. Abdomen: Soft. Positive bowel sounds, nontender. Musculoskeletal: No clubbing or cyanosis. Pulses are 2+. Genitourinary: Sterling catheter has been removed. Central nervous system: No focal deficit. Power is 5/5 in all extremities. LAB REVIEW: CBC showed a WBC of 7.2, hemoglobin 12.5, platelets are 290. BMP showed sodium 138, potassium 3.9, chloride 97, bicarbonate 36, BUN 19, creatinine is 1.2, albumin is 2.5. CURRENT INPATIENT MEDICATIONS: The patient's medications were all reviewed by me. The patient continues to be on spironolactone and intravenous (IV) Lasix 40 mg twice a day. IV antibiotics have been stopped. ASSESSMENT/PLAN: 1. Acute kidney injury superimposed on chronic kidney disease stage III. Renal function has improved after placement of a dual-chamber pacemaker. She was actually fluid overload yesterday and she needed IV Lasix. 2. Acute decompensated congestive heart failure. The patient is requiring IV Lasix injections. Urine output is improving and volume status is getting better. Her breathing is significantly better today as compared with yesterday. 3. Complete heart block, status post dual-chamber pacemaker placement, pulse rate is stable. Management is as per cardiology. 4. History of syndrome of inappropriate secretion of antidiuretic hormone (SIADH). The patient is receiving Lasix twice a day, which is protective against SIADH. No need of salt tablets at this time. 5. Disposition: Patient's renal function and sodium levels are stable. Nephrology service is going to sign off. Please call nephrology service for any help in the management of this patient during this hospitalization. The patient will follow up with nephrology after discharge from the hospital.
--- NOTE | 2019-05-15 17:33 | IPN ---
CARDIOLOGY PROGRESS NOTE DATE: 05/15/2019 SUBJECTIVE: Patient feels well and has been ambulating around the [place] without oxygen and not having any shortness of breath. Has been free of any chest discomfort or lightheadedness despite combination antihypertensive and anti-failure therapies with good diuresis. OBJECTIVE: Heart rate 68 bpm and regular, blood pressure 123/60 sitting, unchanged upon standing, respiratory rate 16, oxygen saturation 94% on room air. Neck veins were below the level of the clavicle with her sitting. Normal oral moisture. No central cyanosis. Still has slightly decreased air entry over the left base posteriorly. Inspiratory rales have resolved. Slight prolongation of expiration, but no audible wheeze. No current pedal edema. EKG: This has shown atrially paced, alternating with sinus rhythm with appropriate sensing and tracking of atrial activity and consistent ventricular pacing. LABORATORY DATA: Blood work today showed a hemoglobin of 12.5 with normal white blood cell count and platelet count. Electrolytes were in balance with slight metabolic alkalosis with her diuresis. BUN stable at 19, creatinine 1.2, fasting glucose was normal. Albumin 2.5. IMPRESSION/PLAN: 1. Heart failure (diastolic dysfunction/acute on chronic): Has had an impressive improvement symptomatically and objectively. Ambulating without oxygen and feeling well. She is very anxious to go home and I concur with her wish at this time. 2. Complete heart block/dual-chamber pacemaker in situ: Telemetry confirms appropriate pacer function. 3. Hypertensive heart disease (benign with heart failure): Current blood pressure is well-controlled on combination medical therapy. 4. Coronary disease ([place] vessel)/history of remote myocardial infarction (SC): Has been free of any symptom or sign of myocardial ischemia. As mentioned, her in-hospital echocardiogram showed no localized wall motion abnormality to suggest prior infarction. 5. 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 Has no symptoms or signs of endocarditis. At this point I believe she could go home with the understanding she should perform only light activities of daily living with her left arm until her aman are removed in our office. My office will be contacting her for a followup clinic visit for a wound check and staple removal between 05/20/2019 and 05/22/2019. She should be encouraged to follow a modest salt and fluid intake restriction. MEDICATIONS: From our standpoint, should include: - atenolol 25 mg daily - lisinopril 10 mg daily - spironolactone 12.5 mg daily - furosemide 20 mg daily - atorvastatin 40 mg daily - aspirin 81 mg daily Her thyroid replacement hormone, metformin therapy and omeprazole will be left to her current attending physician. I have spoken with her hospital provider, Dr. Oglesby.
[2019-05-15] MEDS ORDERED: LIPI20TA PO (18:33)
[2019-05-15] MEDS ORDERED: LISI10TA4 PO (18:34)
[2019-05-15] MEDS ORDERED: SPIR-10 PO (18:36)
[2019-05-16] MEDS ORDERED: FUROSEMIDE 20 MG TAB PO SCH (09:00)
[2019-05-16] MEDS ORDERED: SPIRONOLACTONE 12.5MG PER 1/2 TABLET PO SCH (09:00)
[2019-05-16] MEDS ORDERED: LISINOPRIL 10 MG TAB PO SCH (09:00)
--- NOTE | 2019-05-18 00:27 | DS.PDOC ---
Discharge Summary General Date of Admission May 11, 2019 at 21:34 Date of Discharge May 15, 2019 Discharge Summary PROCEDURES PERFORMED DURING STAY: [None]. ADMITTING DIAGNOSES: 1. . DISCHARGE DIAGNOSES: 1. . COMPLICATIONS/CHIEF COMPLAINT: Complete Heart Block. HISTORY OF PRESENT ILLNESS: Patient is an 83-year-old female, past medical history significant for nicotine dependence, hypertension on atenolol, hypothyroidism on levothyroxine, type 2 diabetes, presenting to the emergency room on account of shortness of breath for 1 week. Family at bedside, state initially patient thought dyspnea was due to allergies and was taking Benadryl every morning and night for about 5 days. There was no improvement in her symptoms. Today due to worsening shortness of breath, they proceeded to urgent care thinking. Patient had bronchitis. At urgent care. Her heart rate was noted to be in the 40s. She was then referred to the emergency room. She was started on dobutamine drip per cardiology recommendations. Imaging study chest x-ray showed moderate bilateral pleural effusion, worse on left. Laboratory data was also abnormal for a TSH of 25, markedly elevated from prior TSH of 5 in September last year. On assessment, patient was noted to be using accessory muscles and blood pressure was markedly elevated with a systolic blood pressure greater than 200. Another call was placed to cardiology who recommended continuation with d obutamine drip and holding atenolol till clearance from her system. Heart rate remained at 37-40 bpm.. On questioning family state. Patient's thyroid was checked 2 weeks ago, there were no medication adjustments because it was determined patient was taken medication incorrectly with meals instead of on an empty stomach on waking up. HOSPITAL COURSE: . DISCHARGE MEDICATIONS: Please see below. ALLERGIES: Please see below. PHYSICAL EXAMINATION ON DISCHARGE: VITAL SIGNS: Please see below. General : pt is elderly lady awake alert and oriented x3, comfortable in bed , no acute distress HEENT: ANAYA EOMI neck supple no JVD no icterus CVS: S1 S2 Lungs: good air entry no wheezing no rales bilateral Abdomen: soft NT ND Ext: no edema no tenderness no cyanosis Neuro: motor sensory grossly intact Psych: mood and effect appropriate LABORATORY DATA: Please see below. IMAGING: PROGNOSIS: Fair ACTIVITY: [As tolerated]. DIET: regular DISCHARGE PLAN: DISPOSITION: 01 Home, Self-Care. DISCHARGE INSTRUCTIONS: 1. keep dressing to be changed in dr Vasquez office ITEMS TO FOLLOWUP ON ON OUTPATIENT: 1. Cardiology appointment Dr Vasquez 2-PCP in two weeks DISCHARGE CONDITION: [Stable]. TIME SPENT ON DISCHARGE: Greater than 30 minutes. Vital Signs/I&Os Vital Signs Date Time Temp Pulse Resp B/P (MAP) Pulse Ox O2 Delivery O2 Flow Rate FiO2 05/15/19 16:00 97.4 67 16 123/58 (79) 91 05/15/19 04:32 2.0 Discharge Medications Scheduled Aspirin (Aspirin EC) 81 Mg Tablet.dr, 81 MG PO DAILY, (Reported) Atenolol (Atenolol) 25 Mg Tablet, 25 MG PO DAILY, (Reported) PATIENT WAS TOLD TO STOP THIS MEDICATION TODAY Atorvastatin Calcium (Lipitor) 20 Mg Tablet, 40 MG PO DAILY Cholecalciferol (Vitamin D3) (Vitamin D3) 1,000 Unit Cap, 1,000 UNIT PO DAILY, (Reported) Furosemide (Furosemide) 20 Mg Tablet, 20 MG PO DAILY, (Reported) Gluc Dumont/Chondro Dumont A/Vit C/Mn (Glucosamine Chondroitin Tab) 1 Each Tablet, 1 TAB PO DAILY, (Reported) Levothyroxine Sodium (Levothyroxine Sodium) 150 Mcg Tablet, 150 MCG PO DAILY, (Reported) Lisinopril (Lisinopril) 10 Mg Tablet, 10 MG PO DAILY Lovastatin (Lovastatin) 20 Mg Tab, 20 MG PO DAILY, (Reported) Magnesium Oxide (Magnesium Oxide) 400 Mg Tablet, 400 MG PO DAILY, (Reported) Metformin HCl (Metformin HCl) 500 Mg Tab, 500 MG PO DAILY, (Reported) Omeprazole (Omeprazole) 40 Mg Cap, 40 MG PO DAILY, (Reported) Spironolactone (Spironolactone) 25 Mg Tablet, 12.5 MG PO DAILY Scheduled PRN Albuterol Sulfate (Proair Hfa) 8.5 Gm Hfa.aer.ad, 2 PUFF INH Q4H PRN for SHORTNESS OF BREATH, (Reported) Allergies Coded Allergies: Penicillins (Verified Allergy, Unknown, 05/11/19) hydrochlorothiazide (Verified Allergy, Unknown, 05/11/19) CIRILO VO MD May 18, 2019 00:27
== END 2019-05-15 19:13 | disposition home or self-care (01) | DRG 242 ==
LOC: M ED 19:30 → M ED INP 21:34 → M ICU 22:35 → M PCU 05-13 14:44
PROVIDERS: ADMIT Internal Medicine; ATTEND Hospitalist
PROC: 02H73JZ Insertion of Pacemaker Lead into Left Atrium, Percutaneous Approach (ICD-10-PCS; 2019-05-13)
PROC: 02HL3JZ Insertion of Pacemaker Lead into Left Ventricle, Percutaneous Approach (ICD-10-PCS; 2019-05-13)
PROC: 0JH606Z Insertion of Pacemaker, Dual Chamber into Chest Subcutaneous Tissue and Fascia, Open Approach (ICD-10-PCS; principal; 2019-05-13 13:30)
DX: I44.2 Atrioventricular block, complete (principal); I50.33 Acute on chronic diastolic (congestive) heart failure; N17.9 Acute kidney failure, unspecified; E22.2 Syndrome of inappropriate secretion of antidiuretic hormone; I13.0 Hypertensive heart and chronic kidney disease with heart failure and stage 1 through stage 4 chronic kidney disease, or unspecified chronic kidney disease; F17.200 Nicotine dependence, unspecified, uncomplicated; E03.9 Hypothyroidism, unspecified; E11.9 Type 2 diabetes mellitus without complications; Z79.899 Other long term (current) drug therapy; Z79.82 Long term (current) use of aspirin; Z88.0 Allergy status to penicillin; Z88.8 Allergy status to other drugs, medicaments and biological substances; E78.5 Hyperlipidemia, unspecified; I25.2 Old myocardial infarction; K57.30 Diverticulosis of large intestine without perforation or abscess without bleeding; Z95.2 Presence of prosthetic heart valve; N18.3 Chronic kidney disease, stage 3 (moderate); I25.10 Atherosclerotic heart disease of native coronary artery without angina pectoris; I08.0 Rheumatic disorders of both mitral and aortic valves

== ENCOUNTER 2020-10-08 06:29 | Emergency (ER) | payer MEDICARE ==
[~2020-10-08] VITALS: Ht 152.4 cm; Wt 52.4 kg
[~2020-10-08 06:29] MED LIST changes: +ASPI81TA27 PO; -ASPI81TA85 PO; +ASPI81TA86 PO; +GLUCTAB6 PO; +LEVO150T7 PO; +LIPI20TA PO; +LISI10TA15 PO; -LISI10TA2 PO; +LISI10TA4 PO; -LISI20TA PO; +LISI20TA35 PO; +MAGN400T3 PO; -OMEP40CA2 PO; +OMEP40CA97 PO; +PROAAER10 INH; +SODI1TAB6 PO; +SPIR-10 PO
[2020-10-08] MEDS ORDERED: ACETAMINOPHEN 500 MG TAB PO ONE (07:15)
--- NOTE | 2020-10-08 07:35 | REPVR ---
PROCEDURE INFORMATION: Exam: CT Head Without Contrast Exam date and time: 10/08/2020 7:17 AM Age: 85 years old Clinical indication: Injury or trauma; Fall; Blunt trauma (contusions or hematomas) TECHNIQUE: Imaging protocol: Computed tomography of the head without contrast. Radiation optimization: All CT scans at this facility use at least one of these dose optimization techniques: automated exposure control; mA and/or kV adjustment per patient size (includes targeted exams where dose is matched to clinical indication); or iterative reconstruction. COMPARISON: CT Head without contrast 11/05/2016 12:20 PM FINDINGS: Brain: Normal. No hemorrhage. Unremarkable white matter. No mass effect. Cerebral ventricles: There is age-related cerebral atrophy with secondary ventricular dilatation. Bones/joints: Unremarkable. No acute fracture. Paranasal sinuses: Visualized sinuses are unremarkable. No fluid levels. Mastoid air cells: Visualized mastoid air cells are well aerated. Soft tissues: Unremarkable. IMPRESSION: No CT evidence of acute intracranial hemorrhage, mass effect or midline shift. Electronically signed by: Simon Beckwith On 10/08/2020 07:35:58 AM
--- NOTE | 2020-10-08 07:41 | REPVR ---
PROCEDURE INFORMATION: Exam: CT Cervical Spine Without Contrast Exam date and time: 10/08/2020 7:17 AM Age: 85 years old Clinical indication: Injury or trauma; Fall; Blunt trauma TECHNIQUE: Imaging protocol: Computed tomography images of the cervical spine without contrast. Radiation optimization: All CT scans at this facility use at least one of these dose optimization techniques: automated exposure control; mA and/or kV adjustment per patient size (includes targeted exams where dose is matched to clinical indication); or iterative reconstruction. COMPARISON: No relevant prior studies available. FINDINGS: Bones/joints: See "Discs/Spinal canal/Neural foramina" finding. Discs/Spinal canal/Neural foramina: There is extensive atlanto dense degenerative and productive changes. There is partially calcified pannus formation at the posterior aspect of the dens. Some erosive changes seen at the dense and right occipital condyle. There is severe C5-C6 and C6-C7 disc degenerative changes. There is right C3-C4 and C4-C5 and left C2-C3 through C6-C7 facet degenerative and productive changes. There is a grade 1 anterolisthesis of C4 on C5. Soft tissues: Right neck surgical clip seen. There is severe calcification of the right carotid artery. Lungs: Lung apices are normal. IMPRESSION: 1. No CT evidence of acute traumatic cervical spine injury. 2. Multilevel cervical spine DJD as described above. 3. Pannus formation with degenerative erosive changes seen at the atlanto dense junction and left atlantooccipital junction possibly due to inflammatory arthritic disease. Electronically signed by: Simon Beckwith On 10/08/2020 07:40:58 AM
[2020-10-08 07:42] LABS: BASO % 0.2 % (0.0-1.0); EOS % 0.3 % (0.0-3.0); HEMATOCRIT 39.5 % (36.0-47.0); HEMOGLOBIN 12.6 g/dl (12.0-15.5); LYMPH % 7.7 % (24.0-44.0); MEAN CORPUSCULAR HEMOGLOBIN 30.3 pg (27.0-33.0); MEAN CORPUSCULAR HGB CONC 31.9 g/dl (32.0-36.5); NEUTROPHILS # 10.8 10^3/uL (1.5-8.5); NEUTROPHILS % 83.4 % (36.0-66.0); PLATELET COUNT, AUTOMATED 179 10^3/uL (150-450); RED BLOOD COUNT 4.16 10^6/uL (4.00-5.40); WHITE BLOOD COUNT 12.9 10^3/uL (4.0-10.0)
[2020-10-08] MEDS ORDERED: ASPIRIN 81 MG CHEW TABLET PO ONE (08:15)
[2020-10-08] MEDS ORDERED: CLOPIDOGREL 300 MG TAB (PLAVIX) PO ONE (09:00)
[2020-10-08] MEDS ORDERED: HEPARIN DRIP 25,000 UNITS in IV 1 EA IV SCH (09:00)
[2020-10-08] MEDS ORDERED: HEPARIN SOD (PORCINE) 5000UNITS/ML 1ML VIAL/SYRINGE IV ONE (09:00)
--- NOTE | 2020-10-08 09:16 | REP ---
INDICATION: shoulde rpain COMPARISON: 05/14/2019 TECHNIQUE: Portable AP view of the chest FINDINGS: The mediastinum and cardiac silhouette are stable and within normal limits for portable technique. Large hiatal hernia again identified. The lung luevano demonstrate chronic changes without acute consolidation, effusion, or pneumothorax. Skeletal structures demonstrate osteopenia and degenerative changes. IMPRESSION: Chronic appearing changes. Hiatal hernia. No focal consolidation or effusion. <Electronically signed by Jimenez Sharma > 10/08/20 [id number]
[2020-10-08 09:40] LABS: INR 1.07; PARTIAL THROMBOPLASTIN TIME 34.3 SECONDS (24.2-38.5); PROTHROMBIN TIME 14.1 SECONDS (12.5-14.3)
[2020-10-08 10:53] VITALS: BP 119/72
--- NOTE | 2020-10-08 13:51 | ECGEPIP ---
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
--- NOTE | 2020-10-10 11:18 | ED PDOC ---
Post-Departure Follow-Up dr gray faxed formal report of ct c spine for fu Karla Sharma MD Oct 10, 2020 11:18
== END 2020-10-08 10:57 | disposition short-term general hospital (02) ==
LOC: M ED 06:29
DX: I21.4 Non-ST elevation (NSTEMI) myocardial infarction (principal); Z95.0 Presence of cardiac pacemaker; R94.31 Abnormal electrocardiogram [ECG] [EKG]; K44.9 Diaphragmatic hernia without obstruction or gangrene; M50.30 Other cervical disc degeneration, unspecified cervical region; E11.9 Type 2 diabetes mellitus without complications; I25.2 Old myocardial infarction; I10 Essential (primary) hypertension; E07.9 Disorder of thyroid, unspecified; F17.200 Nicotine dependence, unspecified, uncomplicated; Z79.82 Long term (current) use of aspirin; Z79.899 Other long term (current) drug therapy; Z88.0 Allergy status to penicillin; Z88.8 Allergy status to other drugs, medicaments and biological substances
CPT/HCPCS: 70450; 71045; 72125; 80047; 84484; 85025; 85610; 85730; 93005; 99291; J1644; U0002

== ENCOUNTER → 2020-11-21 | Outpatient (CLI) | payer MEDICARE ==
[2020-11-21 10:04] LABS: HEMATOCRIT 38.6 % (36.0-47.0); HEMOGLOBIN 12.2 g/dl (12.0-15.5); MEAN CORPUSCULAR HEMOGLOBIN 31.5 pg (27.0-33.0); MEAN CORPUSCULAR HGB CONC 31.6 g/dl (32.0-36.5); MEAN CORPUSCULAR VOLUME 99.7 fl (80.0-96.0); PLATELET COUNT, AUTOMATED 186 10^3/uL (150-450); RED BLOOD COUNT 3.87 10^6/uL (4.00-5.40); WHITE BLOOD COUNT 5.8 10^3/uL (4.0-10.0)
[2020-11-21 10:32] LABS: CALCIUM LEVEL 9.5 MG/DL (8.8-10.2); CREATININE FOR GFR 1.26 MG/DL (0.55-1.30); GLOMERULAR FILTRATION RATE 42.8 (>32); MAGNESIUM LEVEL 1.9 MG/DL (1.8-2.4); POTASSIUM SERUM 4.5 MEQ/L (3.5-5.1)
== END ==
LOC: M LAB 08:51
PROVIDERS: ATTEND Internal Medicine
DX: I48.0 Paroxysmal atrial fibrillation (principal)

== ENCOUNTER → 2020-12-15 | Outpatient (REF) | payer MEDICARE ==
[~2020-12-15] MED LIST changes: +LISI10TA22 PO; -LISI10TA4 PO
[2020-12-15 18:38] LABS: COMPLEMENT C3 100 MG/DL (90-180); COMPLEMENT C4 22 MG/DL (10-40); TOTAL PROTEIN 6.9 GM/DL (6.4-8.2)
[2020-12-20 11:47] LABS: ALBUMIN 3.85 GM/DL (3.29-5.55); ALBUMIN % 55.8 % (55.8-66.1); ALPHA-1-GLOBULIN % 4.6 % (2.9-4.9); ALPHA-1-GLOBULINS 0.32 GM/DL (0.17-0.41); ALPHA-2-GLOBULINS 0.87 GM/DL (0.42-0.99); ALPHA-2-GLOBULINS % 12.6 % (7.1-11.8); BETA-1-GLOBULINS 0.48 GM/DL (0.28-0.60)
[2020-12-20 11:48] LABS: BETA-2-GLOBULINS 0.41 GM/DL (0.19-0.55); GAMMA GLOBULINS 0.97 GM/DL (0.65-1.58)
== END ==
LOC: M LAB REF 16:53
PROVIDERS: ATTEND Internal Medicine Nephrology
DX: R31.9 Hematuria, unspecified (principal); R80.9 Proteinuria, unspecified

== ENCOUNTER → 2020-12-26 | Outpatient (CLI) | payer MEDICARE ==
--- NOTE | 2020-12-26 11:35 | REP ---
INDICATION: CKD STAGE 3A COMPARISON: None TECHNIQUE: Real time rivera scale ultrasound examination using curved array transducer. FINDINGS: Right kidney measures 9.0 x 4.8 x 3.8 cm and is normal in contour, size, echogenicity, and reniform shape without hydronephrosis, nephrolithiasis, or renal lesion. Incidental 7 mm lower pole cyst noted. Left kidney measures 9.6 x 3.4 x 4.5 cm and is normal in contour, size, echogenicity and reniform shape with mild to moderate hydronephrosis and proximal hydroureter as well as 9 mm and 5 mm cortical cysts. IMPRESSION: 1. Mild to moderate left-sided hydronephrosis. 2. Small bilateral subcentimeter cysts. <Electronically signed by Jimenez Sharma > 12/26/20 [id number]
== END ==
LOC: M RAD 10:05
PROVIDERS: ATTEND Internal Medicine Nephrology
DX: N18.31 Chronic kidney disease, stage 3a (principal); R31.21 Asymptomatic microscopic hematuria; N28.1 Cyst of kidney, acquired; N13.30 Unspecified hydronephrosis

== ENCOUNTER 2021-01-15 11:21 | Inpatient (IN) | payer MEDICARE ==
[~2021-01-15] VITALS: Ht 157.5 cm; Wt 51.6 kg
[2021-01-15] MEDS ORDERED: LEVO88TA3 PO (11:29)
[2021-01-15] MEDS ORDERED: ELIQ2.5T PO (11:29)
[2021-01-15] MEDS ORDERED: ONDANSETRON 4MG/2ML VIAL IV ONE (11:55)
[2021-01-15] MEDS ORDERED: MORPHINE 4 MG/ML 1ML VIAL/SYRINGE (J2270) IV ONE (11:55)
[2021-01-15] MEDS ORDERED: NS 1,000 ML IV ONE (11:55)
[2021-01-15 12:11] LABS: BASO # 0.1 10^3/uL (0.0-0.2); BASO % 0.7 % (0.0-1.0); EOS # 0.2 10^3/uL (0.0-0.5); EOS % 1.8 % (0.0-3.0); HEMATOCRIT 42.5 % (36.0-47.0); HEMOGLOBIN 14.3 g/dl (12.0-15.5); LYMPH # 1.2 10^3/uL (1.5-5.0); LYMPH % 10.8 % (24.0-44.0); MEAN CORPUSCULAR HEMOGLOBIN 31.8 pg (27.0-33.0); MEAN CORPUSCULAR HGB CONC 33.6 g/dl (32.0-36.5); MEAN CORPUSCULAR VOLUME 94.7 fl (80.0-96.0); MONO # 0.8 10^3/uL (0.0-0.8); MONO % 7.1 % (2.0-8.0); NEUTROPHILS # 8.9 10^3/uL (1.5-8.5); NEUTROPHILS % 79.4 % (36.0-66.0); PLATELET COUNT, AUTOMATED 233 10^3/uL (150-450); RED BLOOD COUNT 4.49 10^6/uL (4.00-5.40); WHITE BLOOD COUNT 11.2 10^3/uL (4.0-10.0)
--- NOTE | 2021-01-15 12:24 | ECGEPIP ---
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
[2021-01-15 12:27] LABS: INR 1.1; PROTHROMBIN TIME 14.4 SECONDS (12.5-14.3)
[2021-01-15 12:28] LABS: ALBUMIN 3.5 GM/DL (3.2-5.2); BILIRUBIN,DIRECT 0.4 MG/DL (0.0-0.2); CK-MB VALUE MASS 6.4 NG/ML (<3.6); MB/CK RELATIVE INDEX 7.36 (< OR =4); TOTAL PROTEIN 6.7 GM/DL (6.4-8.2); TROPONIN I 0.02 NG/ML (< 0.10)
--- NOTE | 2021-01-15 12:29 | REP ---
INDICATION: CHEST PAIN COMPARISON: 10/08/2020 TECHNIQUE: Portable AP view of the chest FINDINGS: The mediastinum and cardiac silhouette are stable and within normal limits for portable technique. Large hiatal hernia is again suggested. The lung luevano demonstrate chronic interstitial changes without acute consolidation, effusion, or pneumothorax. Skeletal structures are stable with osteopenia, prior right clavicle repair, and suspected old healed left humeral neck fracture. IMPRESSION: Stable chronic appearing changes. <Electronically signed by Jimenez Sharma > 01/15/21 [id number]
[2021-01-15] MEDS ORDERED: ISOVUE-370 76% 100ML VIAL As Ordered ONE (13:20)
--- NOTE | 2021-01-15 14:54 | REP ---
INDICATION: right sided abd pain. COMPARISON: None TECHNIQUE: Axial contrast-enhanced images from the lung bases to the pubic symphysis using 100 cc Isovue 370 intravenous contrast material. Coronal and sagittal reformations obtained. This CT examination was performed using the following dose reduction techniques: Automated exposure control, adjustment of mA and/or kv according to the patient's size, and the use of iterative reconstruction technique. FINDINGS: High-grade distal small-bowel obstruction is appreciated with collapsed loops in the right annamaria pelvis. Small amount of free fluid is identified without free air to suggest perforation. Colon is collapsed and there is evidence for prior partial sigmoid resection. Liver, spleen, pancreas, gallbladder, and bilateral adrenal glands are normal. Kidneys demonstrate mild chronic cortical atrophic changes and minimal cortical scarring without hydronephrosis or acute perinephric stranding. Large paraesophageal gastric hiatal hernia noted extending cranially into the mediastinum. Pelvis demonstrates normal bladder and age-appropriate uterus/adnexa. Atherosclerotic changes to the aorta and vasculature noted without aneurysm or dissection. Musculoskeletal structures demonstrate age-related osteopenia and degenerative changes. Lung bases are clear. IMPRESSION: 1. High-grade small bowel obstruction with collapsed small bowel noted in the right hemipelvis and collapsed appearance of the colon. Small amount of associated ascites. No free air to suggest perforation. 2. Large chronic paraesophageal gastric hiatal hernia. <Electronically signed by Jimenez Sharma > 01/15/21 [id number]
--- NOTE | 2021-01-15 16:12 | HPEPDOC ---
General Date of Admission 01/15/21 Date of Service: Jan 15, 2021 Chief Complaint The patient is a 85-year-old female admitted with a reason for visit of Abdominal Pain. Source: Patient Exam Limitations: No limitations Timing/Duration: Day(s) Severity: Moderate History of Present Illness Patient is 85 years old female with past medical history of CKD stage III, atrial fibrillation, CHF, history of heart block status post pacemaker placement in 2019, hypothyroidism, diabetes mellitus type 2, chronic hyponatremia presented to the hospital with diffuse abdominal pain. Patient stated that she has been having abdominal discomfort for past 2 days associated with constipation. Patient denied fever, chills. She admitted that she has intermittent nausea, but denied vomiting. She stated that she lost of appetite. In ER patient was found to have hemoglobin 14.3, white blood count of 11.2, sodium level of 125, creatinine 1.4. CT abdomen and pelvis showed High-grade small bowel obstruction with collapsed small bowel noted in the right hemipelvis and collapsed appearance of the colon. Small amount of associated ascites. Dr. Arnett recommended NG tube placement. Home Medications Scheduled Apixaban (Eliquis) 2.5 Mg Tablet, 2.5 MG PO BID, (Reported) Aspirin (Aspirin EC) 81 Mg Tablet.dr, 81 MG PO QHS, (Reported) Atenolol (Atenolol) 25 Mg Tablet, 25 MG PO DAILY, (Reported) Atorvastatin Calcium (Atorvastatin Calcium) 40 Mg Tablet, 40 MG PO QHS, (Reported) Cholecalciferol (Vitamin D3) (Vitamin D3) 1,000 Unit Tablet, 1,000 UNITS PO DA MELISSA, (Reported) Furosemide (Furosemide) 20 Mg Tablet, 20 MG PO DAILY, (Reported) Levothyroxine Sodium (Levothyroxine Sodium) 88 Mcg Tablet, 88 MCG PO DAILY, (Reported) HAS NOT STARTED YET Lisinopril (Lisinopril) 10 Mg Tablet, 10 MG PO QHS, (Reported) Magnesium Oxide (Magnesium Oxide) 400 Mg Tablet, 400 MG PO TID, (Reported) Omeprazole (Omeprazole) 40 Mg Cap, 40 MG PO DAILY, (Reported) Allergies Coded Allergies: Penicillins (Verified Allergy, Unknown, 05/11/19) hydrochlorothiazide (Verified Allergy, Unknown, 05/11/19) Past Medical History Medical History 1. Chronic kidney disease, stage III. 2. Diabetes mellitus, type 2. 3. Chronic hyponatremia. 4. Hypothyroidism. 5. Hyperlipidemia. 6. Coronary artery disease and history of myocardial infarction (OR) in the past. 7. History of syndrome of inappropriate secretion of antidiuretic hormone (SIADH) Surgical History 1. Status post a right-sided carotid endarterectomy. 2 Status post iliac stenting. 3. Status post cataract surgery. 4. History of colostomy placement and reversal in the past. 5. Pacemaker placement Family History I personally reviewed the history and found not pertinent Social History * Smoker: current smoker Alcohol: Denies Drugs: denies A-FIB/CHADSVASC A-FIB History Current/History of A-Fib/PAF?: Yes Current PO Anticoag Therapy: Yes Review of Systems Constitutional: Denies: Chills, Fever Eyes: Denies: Pain ENT: Denies: Head Aches Skin: Denies: Rash, Lesions Pulmonary: Denies: Dyspnea, Cough Cardiovascular: Denies: Chest Pain Gastrointestinal: Reports: Nausea, Abdominal Pain Genitourinary: Denies: Dysuria Hematologic: Denies: Bruising, Bleeding Excessively Endocrine: Denies: Polydipsia, Polyphagia Musculoskeletal: Denies: Neck Pain Neurological: Denies: Weakness Psych: Reports: Mood Normal Physical Examination General Exam: Positive: Alert, Cooperative Eye Exam: Positive: PERRLA ENT Exam: Positive: Atraumatic Neck Exam: Positive: Supple; Negative: JVD Chest Exam: Positive: Diminished Heart Exam: Positive: Irregular Rhythm Telemetry: Positive: Atrial fibrillation Abdomen Exam: Positive: BS Hypoactive, Tenderness (diffuse mild tenderness) Extremity Exam: Negative: Clubbing, Cyanosis Skin Exam: Negative: Nl turgor and temperature Neuro Exam: Positive: Cranial Nerves 3-12 NL Psych Exam: Positive: Mental status NL Vital Signs Vital Signs Date Time Temp Pulse Resp B/P (MAP) Pulse Ox O2 Delivery O2 Flow Rate FiO2 01/15/21 12:16 20 01/15/21 11:30 01/15/21 11:21 98.0 66 96 Room Air Laboratory Data Labs 24H Laboratory Tests 2 01/15/21 11:40: Lactic Acid Level 2.3*H 01/15/21 11:45: Ammonia < 10 01/15/21 11:53: Immature Granulocyte % (Auto) 0.2, Neutrophils (%) (Auto) 79.4H, Lymphocytes (%) (Auto) 10.8L, Monocytes (%) (Auto) 7.1, Eosinophils (%) (Auto) 1.8, Basophils (%) (Auto) 0.7, Neutrophils # (Auto) 8.9H, Lymphocytes # (Auto) 1.2L, Monocytes # (Auto) 0.8, Eosinophils # (Auto) 0.2, Basophils # (Auto) 0.1, Nucleated Red Blood Cells % (auto) 0.0, Prothrombin Time 14.4H, Prothromb Time International Ratio 1.10, Total Bilirubin 1.0, Direct Bilirubin 0.4H, Aspartate Amino Transf (AST/SGOT) 30, Alanine Aminotransferase (ALT/SGPT) 24, Alkaline Phosphatase 82, Total Creatine Kinase 87, Creatine Kinase MB 6.4H, Creatine Kinase MB Relative Index 7.36H, Troponin I 0.02, Total Protein 6.7, Albumin 3.5, Albumin/Globulin Ratio 1.1L, Lipase 197 01/15/21 11:56: POC Glucose (Misc Panel) 148H, POC Sodium (Misc Panel) 125L, POC Potassium (Misc Panel) 4.5, POC Chloride (Misc Panel) 85L, POC Total CO2 (Misc Panel) 33.0H, POC Blood Urea Nitrogen (Misc Panel 24, POC Ionized Calcium (Misc Panel) 5.1, POC Creatinine (Misc Panel) 1.4H, POC Hematocrit (Misc Panel) 46.0 01/15/21 12:12: POC Troponin I (Misc) 0.02 CBC/BMP Laboratory Tests 01/15/21 11:53 Assessment/Plan Patient is 85 years old female with past medical history of CKD stage III, a trial fibrillation, CHF, history of heart block status post pacemaker placement in 2019, hypothyroidism, diabetes mellitus type 2, chronic hyponatremia presented to the hospital with diffuse abdominal pain. Patient stated that she has been having abdominal discomfort for past 2 days associated with constipation. Patient denied fever, chills. She admitted that she has intermittent nausea, but denied vomiting. She stated that she lost of appetite. In ER patient was found to have hemoglobin 14.3, white blood count of 11.2, sodium level of 125, creatinine 1.4. CT abdomen and pelvis showed High-grade small bowel obstruction with collapsed small bowel noted in the right hemipelvis and collapsed appearance of the colon. Small amount of associated ascites. Dr. Arnett recommended NG tube placement. Problems (1) Small bowel obstruction Status: Acute Problem Text: CT abdomen and pelvis showed High-grade small bowel obstruction with collapsed small bowel noted in the right hemipelvis and collapsed appearance of the colon. Small amount of associated ascites. Dr. Arnett recommended NG tube placement Nothing by mouth for now (2) ARF (acute renal failure) Status: Acute Problem Text: Acute on chronic, superimposed with volume depletion secondary to poor oral intake Gentle IV fluid Continue to monitor (3) Hyponatremia Status: Chronic Problem Text: We'll check urine lites, serum and urine osmolality I talked to Dr. King he recommended IV normal saline with potassium supp lementation BMP every 6 hours (4) Hypertension Status: Chronic Problem Text: Continue home cardioprotective medications (5) Diabetes mellitus Status: Chronic Problem Text: Blood glucose level under control Insulin Sliding scale (6) Atrial fibrillation Status: Chronic Problem Text: Continue oral targeted anticoagulation Heart rate under control Telemetry (7) Coronary artery disease Status: Chronic Problem Text: Patient denied any chest pain Troponin negative EKG did not show any ischemic changes Continue home cardioprotective medications Plan / VTE VTE Prophylaxis Ordered?: Yes MEDINA SAWYER DO Jan 15, 2021 16:12
[2021-01-15] MEDS ORDERED: D31000TA2 PO (16:13)
[2021-01-15] MEDS ORDERED: ATOR40TA75 PO (16:13)
[2021-01-15] MEDS ORDERED: LISI10TA22 PO (16:13)
[2021-01-15 16:50] LABS: RSV AMPLIFICATION NEGATIVE (NEGATIVE)
[2021-01-15 17:53] VITALS: BP 135/53
[2021-01-15] MEDS: NS 1,000 ML IV SCH ×2 (18:24→20:29)
[2021-01-15] MEDS: atenoloL 25 MG TAB PO SCH (18:24)
[2021-01-15 20:02] LABS: CALCIUM LEVEL 8.3 MG/DL (8.8-10.2); CREATININE FOR GFR 1.19 MG/DL (0.55-1.30); GLOMERULAR FILTRATION RATE 45.7 (>32); POTASSIUM SERUM 4.2 MEQ/L (3.5-5.1)
[2021-01-15] MEDS: MAGNESIUM OXIDE 400MG TAB (MAG-OX) PO SCH (20:29)
[2021-01-15] MEDS ORDERED: ATORVASTATIN 20 MG TAB PO SCH (21:00)
[2021-01-15] MEDS ORDERED: APIXABAN 2.5 MG TAB (ELIQUIS) PO SCH (21:00)
[2021-01-15] MEDS ORDERED: ASPIRIN 81MG ENTERIC TABLET PO SCH (21:00)
[2021-01-15 22:00] VITALS: BP 119/57
[2021-01-16 01:12] LABS: CALCIUM LEVEL 9.1 MG/DL (8.8-10.2); CREATININE FOR GFR 1.08 MG/DL (0.55-1.30); GLOMERULAR FILTRATION RATE 51.1 (>32); POTASSIUM SERUM 3.9 MEQ/L (3.5-5.1)
--- NOTE | 2021-01-16 05:00 | CR.PDOC ---
General Surgery Consultation Date of Consultation 01/16/21 History and Physical CONSULT REPORT FOR: hospitalist service REASON FOR CONSULTATION: small bowel obstruction HISTORY OF PRESENT ILLNESS: Patient is an 85-year-old female with a prior history of what looks like a sigmoid colectomy for complications of diverticulitis with an end colostomy and subsequent reversal of her colostomy a few months after. She presented to the emergency room with about a 2 day history of increasing abdominal distention, nausea, crampy abdominal pain. She has not really had any vomiting. She last moved her bowel yesterday. She reports she is also passing flatus. In the emergency room she was worked up and was found to have evidence for bowel obstruction. I placed a nasogastric tube for bowel decompression. She has several serious medical comorbidities including cardiac problems. She has a pacemaker in place for prior history of a complete heart block. She is on eliquis which she last took this morning. PAST MEDICAL HISTORY: 1. . PAST SURGICAL HISTORY: INCLUDES: 1. . PREVIOUS ANESTHESIA REACTIONS: ALLERGIES: Please see below. FAMILY HISTORY: . HOME MEDICATIONS: Please see below. REVIEW OF SYSTEMS: GENERAL: [Denies chills, reports weight gain, reports feeling febrile yesterday]. HEENT: [Denies blurred vision and double vision. Denies ear symptoms. Denies hoarseness]. NECK: Denies any neck pain]. CARDIOVASCULAR: [Denies chest pain and palpitations]. MUSCULOSKELETAL: [Denies arthralgias, back pain and thrombophlebitis]. SKIN: [Denies rash]. NEUROLOGIC: [Denies headache, stroke and transient ischemic attack]. PSYCHIATRIC: [Denies anxiety and depression]. ENDOCRINE: [Denies thyroid disease]. HEMATOLOGY/ONCOLOGY: [Denies bleeding or clotting disorder]. HEART: [Denies any chest pains, palpitations, paroxysmal dyspnea, orthopnea]. PULMONARY: [Denies chronic cough, dyspnea and wheezing]. GASTROINTESTINAL: [Denies rectal bleeding, family history of colon cancer, constipation, diarrhea, dysphagia, heartburn and jaundice]. GENITOURINARY: [Denies dysuria, frequency, hematuria and nocturia]. ENDOCRINE: [Denies polydipsia, polyphagia, polyuria, heat or cold intolerance]. INFECTIOUS: [Denies any recent upper respiratory tract infection, UTI, need for use of antibiotics]. NUTRITION: [Reports good appetite]. PHYSICAL EXAMINATION: VITALS SIGNS: Please see below. GENERAL APPEARANCE:[Patient seen, laying in bed, awake, alert, and oriented. Comfortable, in no acute distress]. SKIN: [Warm and moist]. HEENT: [Normocephalic, atraumatic. [place] palpebral conjunctiva, anicteric sclerae. Lips and mucosa appear moist]. NECK: [Supple, no thyromegaly. No obvious jugular venous distention]. LUNGS: [Clear to auscultation bilaterally. No wheezing appreciated]. HEART: [No chest wall abnormalities. Regular rate and rhythm with no murmurs appreciated]. ABDOMEN: Abdomen is , soft, . [No hepatosplenomegaly. No umbilical or groin herniations, nondistended. No noticeable rebound or guarding. No grimacing with palpation. No rebound tenderness. No masses appreciated]. EXTREMITIES: [Extremities have no deformities. No edema identified] ANCILLARIES: . LABORATORY DATA: Please see below. IMAGING STUDIES: . IMPRESSION AND PLAN: Small bowel obstruction related to adhesions from prior surgery. I place a nasogastric tube to decompress her abdomen. She has no signs of severe inflammatory response, generalized peritonitis or sepsis. No signs of threatened bowel on imaging and on clinical examination. She is also on anticoagulation. Continue to hold the Eliquis while we are closely monitoring her. This appears to be her first bout of bowel obstruction. If she is able to undo the bowel obstruction spontaneously and with bowel decompression, she will not need surgery itself she was made aware that if this fails or after signs of any threatened bowel, generalized peritonitis, increasing discomfort that he may need to bring her to the operating room for abdominal exploration. Vital Signs Vital Signs Date Time Temp Pulse Resp B/P (MAP) Pulse Ox O2 Delivery O2 Flow Rate FiO2 01/15/21 22:00 97.4 60 18 119/57 (77) 90 01/15/21 17:31 Room Air I&Os I&O- Last 24 Hours up to 6 AM 01/16/21 05:59 Intake Total 1540 ml Output Total 700 ml Balance 840 ml Laboratory Data Labs 24H Laboratory Tests 2 01/15/21 11:40: Lactic Acid Level 2.3*H 01/15/21 11:45: Ammonia < 10 01/15/21 11:53: Immature Granulocyte % (Auto) 0.2, Neutrophils (%) (Auto) 79.4H, Lymphocytes (%) (Auto) 10.8L, Monocytes (%) (Auto) 7.1, Eosinophils (%) (Auto) 1.8, Basophils (%) (Auto) 0.7, Neutrophils # (Auto) 8.9H, Lymphocytes # (Auto) 1.2L, Monocytes # (Auto) 0.8, Eosinophils # (Auto) 0.2, Basophils # (Auto) 0.1, Nucleated Red Blood Cells % (auto) 0.0, Prothrombin Time 14.4H, Prothromb Time International Ratio 1.10, Total Bilirubin 1.0, Direct Bilirubin 0.4H, Aspartate Amino Transf (AST/SGOT) 30, Alanine Aminotransferase (ALT/SGPT) 24, Alkaline Phosphatase 82, Total Creatine Kinase 87, Creatine Kinase MB 6.4H, Creatine Kinase MB Relative Index 7.36H, Troponin I 0.02, Total Protein 6.7, Albumin 3.5, Albumin/Globulin Ratio 1.1L, Lipase 197 01/15/21 11:56: POC Glucose (Misc Panel) 148H, POC Sodium (Misc Panel) 125L, POC Potassium (Misc Panel) 4.5, POC Chloride (Misc Panel) 85L, POC Total CO2 (Misc Panel) 33.0H, POC Blood Urea Nitrogen (Misc Panel 24, POC Ionized Calcium (Misc Panel) 5.1, POC Creatinine (Misc Panel) 1.4H, POC Hematocrit (Misc Panel) 46.0 01/15/21 12:12: POC Troponin I (Misc) 0.02 01/15/21 16:08: Coronavirus (COVID-19)(PCR) NEGATIVE, Influenza Type A (RT-PCR) NEGATIVE, Influenza Type B (RT-PCR) NEGATIVE, Respiratory Syncytial Virus (PCR) NEGATIVE 01/15/21 17:24: Lactic Acid Followup at 4 Hours 1.1 01/15/21 19:29: Anion Gap 5L, Glomerular Filtration Rate 45.7, Calcium Level 8.3L 01/16/21 00:39: Anion Gap 6L, Glomerular Filtration Rate 51.1, Calcium Level 9.1 CBC/BMP Laboratory Tests 01/15/21 11:53 01/15/21 19:29 01/16/21 00:39 Home Medications Scheduled Apixaban (Eliquis) 2.5 Mg Tablet, 2.5 MG PO BID, (Reported) Aspirin (Aspirin EC) 81 Mg Tablet.dr, 81 MG PO QHS, (Reported) Atenolol (Atenolol) 25 Mg Tablet, 25 MG PO DAILY, (Reported) Atorvastatin Calcium (Atorvastatin Calcium) 40 Mg Tablet, 40 MG PO QHS, (Reported) Cholecalciferol (Vitamin D3) (Vitamin D3) 1,000 Unit Tablet, 1,000 UNITS PO DAILY, (Reported) Furosemide (Furosemide) 20 Mg Tablet, 20 MG PO DAILY, (Reported) Levothyroxine Sodium (Levothyroxine Sodium) 88 Mcg Tablet, 88 MCG PO DAILY, (Reported) HAS NOT STARTED YET Lisinopril (Lisinopril) 10 Mg Tablet, 10 MG PO QHS, (Reported) Magnesium Oxide (Magnesium Oxide) 400 Mg Tablet, 400 MG PO TID, (Reported) Omeprazole (Omeprazole) 40 Mg Cap, 40 MG PO DAILY, (Reported) Allergies Coded Allergies: Penicillins (Verified Allergy, Unknown, 05/11/19) hydrochlorothiazide (Verified Allergy, Unknown, 05/11/19) SAVANAH MENDOZA MD Jan 16, 2021 05:00
[2021-01-16 06:00] VITALS: BP 121/70
[2021-01-16] MEDS ORDERED: LEVOTHYROXINE 88MCG TABLET (0.088 MG) PO SCH (06:00)
[2021-01-16 07:21] LABS: MEAN CORPUSCULAR HEMOGLOBIN 30.6 pg (27.0-33.0); MEAN CORPUSCULAR HGB CONC 32.2 g/dl (32.0-36.5); PLATELET COUNT, AUTOMATED 178 10^3/uL (150-450); RED BLOOD COUNT 3.79 10^6/uL (4.00-5.40); WHITE BLOOD COUNT 7.1 10^3/uL (4.0-10.0)
[2021-01-16 07:23] LABS: HEMOGLOBIN 11.6 g/dl (12.0-15.5)
[2021-01-16 07:37] LABS: CALCIUM LEVEL 8.2 MG/DL (8.8-10.2); CREATININE FOR GFR 1.13 MG/DL (0.55-1.30); GLOMERULAR FILTRATION RATE 48.5 (>32); MAGNESIUM LEVEL 1.5 MG/DL (1.8-2.4); POTASSIUM SERUM 3.7 MEQ/L (3.5-5.1)
[2021-01-16] MEDS ORDERED: MAG SULF 1GM/100ML (MAG RUN) 1 GM in IV 1 EA IV ONE (08:00)
[2021-01-16] MEDS: MAGNESIUM OXIDE 400MG TAB (MAG-OX) PO SCH (08:00)
[2021-01-16 08:39] VITALS: BP 100/62
[2021-01-16] MEDS: atenoloL 25 MG TAB PO SCH (08:39)
[2021-01-16] MEDS ORDERED: HEPARIN SOD (PORCINE) 5000UNITS/ML 1ML VIAL/SYRINGE SQ SCH (09:00)
[2021-01-16] MEDS ORDERED: VITAMIN D 1,000 INTERNATIONAL UNITS TABLET PO SCH (09:00)
[2021-01-16] MEDS ORDERED: OMEPRAZOLE 20 MG CAP PO SCH (09:00)
--- NOTE | 2021-01-16 10:06 | IPNPDOC ---
Text Note Date of Service The patient was seen on 01/16/21. NOTE General Surgery Dr Arnett. Patient is an 85-year-old female with a prior history of sigmoid colectomy for complications of diverticulitis with an end colostomy and subsequent reversal of her colostomy a few months after. The pt presented to the emergency room with about a 2 day history of increasing abdominal distention, nausea, crampy abdominal pain and admitted with bowel obstruction. NGT placed for bowel decompression. This morning patient has had 3 large bowel movements per nursing, she reports improvement in her abdominal pain and distention. No nausea or vomiting. Reports she is passing gas. Afebrile, VSS. Gen NAD, awake and sitting up in bed. NGT in place. Lungs clear to auscultation S1-S2 regular rate and rhythm Abdomen soft, less distention, nontender. No guarding, no rebound. Extremities with no edema, well perfused. WBC 7.1, hemoglobin 11.6, platelets 178. Assessment/plan. Small bowel obstruction related to adhesions from previous surgery. The patient reports she is passing gas and has had 3 large bowel movements this morning with improvement in her abdominal distention. No surgical intervention is needed at this time. Plan is reviewed with the patient as per Dr. Arnett. Remove NG tube this morning. Trial of full liquids. Plan to advance to diet as tolerated. If tolerating regular diet, the patient would be okay for discharge from a surgical standpoint. Plan is reviewed with hospitalist at the bedside. VS,Fishbone, I+O VS, Fishbone, I+O Laboratory Tests 01/15/21 11:53 01/15/21 19:29 01/16/21 00:39 01/16/21 07:08 Vital Signs Date Time Temp Pulse Resp B/P (MAP) Pulse Ox O2 Delivery O2 Flow Rate FiO2 01/16/21 08:39 62 100/62 01/16/21 06:00 97.0 17 95 01/15/21 17:31 Room Air I&O- Last 24 Hours up to 6 AM 01/16/21 06:00 Intake Total 1540 ml Output Total 700 ml Balance 840 ml Bina Guerra Jan 16, 2021 10:06
[2021-01-16 13:31] LABS: CALCIUM LEVEL 8.4 MG/DL (8.8-10.2); CREATININE FOR GFR 1.3 MG/DL (0.55-1.30); GLOMERULAR FILTRATION RATE 41.2 (>32)
[2021-01-16 14:00] VITALS: BP 102/46
[2021-01-16] MEDS ORDERED: DULC5TAB PO (14:13)
--- NOTE | 2021-01-16 18:29 | DS.PDOC ---
Discharge Summary General Date of Admission Jan 15, 2021 at 15:31 Date of Discharge 01/16/21 Discharge Summary PROCEDURES PERFORMED DURING STAY: [None]. ADMITTING DIAGNOSES: Small bowel obstruction ARF (acute renal failure) Hyponatremia Hypertension Diabetes mellitus Atrial fibrillation Coronary artery disease DISCHARGE DIAGNOSES: Small bowel obstruction ARF (acute renal failure) Hyponatremia Hypertension Diabetes mellitus Atrial fibrillation Coronary artery disease COMPLICATIONS/CHIEF COMPLAINT: Small Bowel Obstruction. HISTORY OF PRESENT ILLNESS: Patient is 85 years old female with past medical history of CKD stage III, atrial fibrillation, CHF, history of heart block status post pacemaker placement in 2019, hypothyroidism, diabetes mellitus type 2, chronic hyponatremia presented to the hospital with diffuse abdominal pain. Patient stated that she has been having abdominal discomfort for past 2 days associated with constipation. Patient denied fever, chills. She admitted that she has intermittent nausea, but denied vomiting. She stated that she lost of appetite. In ER patient was found to have hemoglobin 14.3, white blood count of 11.2, sodium level of 125, creatinine 1.4. CT abdomen and pelvis showed High- grade small bowel obstruction with collapsed small bowel noted in the right hemipelvis and collapsed appearance of the colon. Small amount of associated ascites. Dr. Arnett recommended NG tube placement. HOSPITAL COURSE: During hospital stay the following issues addressed 1) Small bowel obstruction CT abdomen and pelvis showed High-grade small bowel obstruction with collapsed small bowel noted in the right hemipelvis and collapsed appearance of the colon. Small amount of associated ascites. Dr. Arnett recommended NG tube placement. NG tube was placed yesterday. Small bowel obstruction resolved today in the morning. Patient tolerates her diet (2) ARF (acute renal failure) Acute on chronic, superimposed with volume depletion secondary to poor oral intake Gentle IV fluid Improved today (3) Hyponatremia I talked to Dr. King he recommended IV normal saline with potassium solis pplementation Improved today (4) Hypertension Continue home cardioprotective medications (5) Diabetes mellitus Blood glucose level under control Insulin Sliding scale (6) Atrial fibrillation Continue oral targeted anticoagulation Heart rate under control Telemetry (7) Coronary artery disease Patient denied any chest pain Troponin negative EKG did not show any ischemic changes Continue home cardioprotective medications DISCHARGE MEDICATIONS: Please see below. ALLERGIES: Please see below. PHYSICAL EXAMINATION ON DISCHARGE: VITAL SIGNS: Please see below. Objective: GENERAL APPEARANCE: NAD HEENT: no scleral icterus, no JVD, EOMI CARDIOVASCULAR: Irregularly irregular LUNGS: CTA ABDOMEN: soft & not tender w palpitation MUSCULOSKELETAL: no cyanosis, no swelling INTEGUMENT: no generalized pallor NEUROLOGICAL: cranial nerve function from 2-12 intact intact, follows commands, speech not dysarthric LABORATORY DATA: Please see below. IMAGING: See above PROGNOSIS: Fair ACTIVITY: [As tolerated]. DIET: Cardiac DISPOSITION: 01 Home, Self-Care. DISCHARGE INSTRUCTIONS: Follow-up with PCP in 3-5 days DISCHARGE CONDITION: [Stable]. TIME SPENT ON DISCHARGE:30 minutes. Vital Signs/I&Os Vital Signs Date Time Temp Pulse Resp B/P (MAP) Pulse Ox O2 Delivery O2 Flow Rate FiO2 01/16/21 14:00 98.0 62 16 102/46 (64) 93 Room Air I&O- Last 24 Hours up to 6 AM 01/16/21 06:00 Intake Total 1540 ml Output Total 700 ml Balance 840 ml Laboratory Data Labs 24H Laboratory Tests 2 01/15/21 19:29: Anion Gap 5L, Glomerular Filtration Rate 45.7, Calcium Level 8.3L 01/16/21 00:39: Anion Gap 6L, Glomerular Filtration Rate 51.1, Calcium Level 9.1 01/16/21 07:08: Anion Gap 4L, Glomerular Filtration Rate 48.5, Calcium Level 8.2L, Nucleated Red Blood Cells % (auto) 0.0, Magnesium Level 1.5L 01/16/21 11:43: Lab Scanned Report Miscellaneous Lab 01/16/21 12:53: Anion Gap 7L, Glomerular Filtration Rate 41.2, Calcium Level 8.4L CBC/BMP Laboratory Tests 01/15/21 19:29 01/16/21 00:39 01/16/21 07:08 01/16/21 12:53 Discharge Medications Scheduled Apixaban (Eliquis) 2.5 Mg Tablet, 2.5 MG PO BID, (Reported) Aspirin (Aspirin EC) 81 Mg Tablet.dr, 81 MG PO QHS, (Reported) Atenolol (Atenolol) 25 Mg Tablet, 25 MG PO DAILY, (Reported) Atorvastatin Calcium (Atorvastatin Calcium) 40 Mg Tablet, 40 MG PO QHS, (Reported) Bisacodyl (Dulcolax) 5 Mg Tablet.dr, 5 MG PO ONCE for constipation Cholecalciferol (Vitamin D3) (Vitamin D3) 1,000 Unit Tablet, 1,000 UNITS PO DAILY, (Reported) Furosemide (Furosemide) 20 Mg Tablet, 20 MG PO DAILY, (Reported) Levothyroxine Sodium (Levothyroxine Sodium) 88 Mcg Tablet, 88 MCG PO DAILY, (Reported) HAS NOT STARTED YET Lisinopril (Lisinopril) 10 Mg Tablet, 10 MG PO QHS, (Reported) Magnesium Oxide (Magnesium Oxide) 400 Mg Tablet, 400 MG PO TID, (Reported) Omeprazole (Omeprazole) 40 Mg Cap, 40 MG PO DAILY, (Reported) Allergies Coded Allergies: Penicillins (Verified Allergy, Unknown, 05/11/19) hydrochlorothiazide (Verified Allergy, Unknown, 05/11/19) MEDINA SAWYER DO Jan 16, 2021 18:29
== END 2021-01-16 15:34 | disposition home or self-care (01) | DRG 389 ==
LOC: M ED 11:21 → M ED INP 15:31 → ENRESERV 16:58 → M MSPAV 17:53
PROVIDERS: ADMIT Internal Medicine; ATTEND Internal Medicine
DX: K56.50 Intestinal adhesions [bands], unspecified as to partial versus complete obstruction (principal); N17.9 Acute kidney failure, unspecified; I48.20 Chronic atrial fibrillation, unspecified; E87.1 Hypo-osmolality and hyponatremia; I13.0 Hypertensive heart and chronic kidney disease with heart failure and stage 1 through stage 4 chronic kidney disease, or unspecified chronic kidney disease; N18.30 Chronic kidney disease, stage 3 unspecified; E11.9 Type 2 diabetes mellitus without complications; I25.10 Atherosclerotic heart disease of native coronary artery without angina pectoris; I50.9 Heart failure, unspecified; E03.9 Hypothyroidism, unspecified; Z95.0 Presence of cardiac pacemaker; Z79.82 Long term (current) use of aspirin; Z79.899 Other long term (current) drug therapy; Z88.0 Allergy status to penicillin; Z88.8 Allergy status to other drugs, medicaments and biological substances; E78.5 Hyperlipidemia, unspecified; I25.2 Old myocardial infarction; F17.200 Nicotine dependence, unspecified, uncomplicated

== ENCOUNTER → 2021-01-25 | Outpatient (REF) | payer MEDICARE ==
[~2021-01-25] MED LIST changes: +ATOR40TA75 PO; +D31000TA2 PO; +DULC5TAB PO; +ELIQ2.5T PO; +LEVO88TA3 PO
[2021-01-25 13:08] LABS: APPEARANCE, URINE CLEAR (CLEAR); BACTERIA, URINE AUTO 1+ (NEGATIVE); BILIRUBIN, URINE AUTO NEGATIVE (NEGATIVE); BLOOD, URINE BLOOD NEGATIVE (NEGATIVE); COLOR, URINE YELLOW (YELLOW); GLUCOSE, URINE (UA) AUTO NEGATIVE (NEGATIVE); KETONE, URINE AUTO NEGATIVE (NEGATIVE); LEUKOCYTE ESTERASE, URINE AUTO NEGATIVE (NEGATIVE); NITRITE, URINE AUTO NEGATIVE (NEGATIVE); PROTEIN, URINE AUTO 1+ mg/dL (NEGATIVE); RBC, URINE AUTO 1 /HPF (0-3); SPECIFIC GRAVITY URINE AUTO 1.008 (1.002-1.035); SQUAMOUS EPITHELIAL CELL UR AU 2 /HPF (0-6); UROBILINOGEN, URINE AUTO 0.2 mg/dL (0.0-2.0); WBC, URINE AUTO 2 /HPF (0-3)
== END ==
LOC: M SMT 12:47
PROVIDERS: ATTEND Nurse Practitioner Women's Health
DX: N13.30 Unspecified hydronephrosis (principal); Z79.899 Other long term (current) drug therapy
CPT/HCPCS: 81001; 87086; G0463

== ENCOUNTER → 2021-03-02 | Outpatient (REF) | payer MEDICARE | LOC: M LAB REF 16:56 | PROVIDERS: ATTEND Internal Medicine Nephrology | DX: R31.9 Hematuria, unspecified (principal); R80.9 Proteinuria, unspecified ==

== ENCOUNTER → 2021-09-05 | Outpatient (REF) | payer MEDICARE ==
[~2021-09-05] MED LIST changes: -MAGN400T3 PO; +MAGN400T33 PO; +OMEP40CA4 PO; -OMEP40CA97 PO
== END ==
LOC: M LAB REF 13:21
PROVIDERS: ATTEND Internal Medicine Nephrology
DX: E83.42 Hypomagnesemia (principal)

== ENCOUNTER → 2022-03-09 | Outpatient (CLI) | payer MEDICARE ==
[~2022-03-09] MED LIST changes: -D31000TA2 PO; -LISI10TA15 PO; +LISI10TA24 PO; +VITA100093 PO
== END ==
LOC: M WHC 11:20
PROVIDERS: ATTEND Nurse Practitioner Family
DX: N17.9 Acute kidney failure, unspecified (principal); R33.9 Retention of urine, unspecified; N28.1 Cyst of kidney, acquired

== ENCOUNTER 2022-08-09 04:04 | Inpatient (IN) | payer MEDICARE ==
[2022-08-09] VITALS (14 sets, daily range): BP systolic 72–118; BP diastolic 43–57
[~2022-08-09] VITALS: Ht 154.9 cm; Wt 50.8 kg
[~2022-08-09 04:04] MED LIST changes: -GLUCTAB6 PO; +GLUCTAB7 PO
[2022-08-09] MEDS ORDERED: IPRATROPIUM 0.5MG/ALBUTEROL 2.5MG INH SOL UD 3ML (DUONEB) NEB ONE ×2 (04:30→13:15)
[2022-08-09 04:34] LABS: ABG HCO3 25.3 MEQ/L (22.0-26.0); ABG PARTIAL PRESSURE CO2 59.1 mmHg (35.0-45.0); ABG PARTIAL PRESSURE O2 113.1 mmHg (75.0-100.0); ABG TOTAL CO2 27.1 MEQ/L (23.0-31.0)
[2022-08-09 04:36] LABS: ABG pH (ARTERIAL) 7.249 UNITS (7.350-7.450)
[2022-08-09] MEDS ORDERED: FUROSEMIDE 100MG/10ML VIAL (J1940) IV ONE (04:40)
[2022-08-09 04:42] LABS: BASO % 0.4 % (0.0-1.0); EOS # 0.2 10^3/uL (0.0-0.5); EOS % 1.6 % (0.0-3.0); HEMATOCRIT 42.9 % (36.0-47.0); HEMOGLOBIN 14.2 g/dl (12.0-15.5); LYMPH # 0.7 10^3/uL (1.5-5.0); LYMPH % 7.5 % (24.0-44.0); MEAN CORPUSCULAR HEMOGLOBIN 32.5 pg (27.0-33.0); MEAN CORPUSCULAR HGB CONC 33.1 g/dl (32.0-36.5); MEAN CORPUSCULAR VOLUME 98.2 fl (80.0-96.0); MONO # 0.6 10^3/uL (0.0-0.8); MONO % 6.2 % (2.0-8.0); NEUTROPHILS # 7.8 10^3/uL (1.5-8.5); NEUTROPHILS % 84.1 % (36.0-66.0); PLATELET COUNT, AUTOMATED 191 10^3/uL (150-450); RED BLOOD COUNT 4.37 10^6/uL (4.00-5.40); WHITE BLOOD COUNT 9.3 10^3/uL (4.0-10.0)
[2022-08-09 04:47] LABS: INR 1.07; PROTHROMBIN TIME 14.3 SECONDS (12.7-14.5)
[2022-08-09 05:08] LABS: CK-MB VALUE MASS 1.8 NG/ML (<3.6); MB/CK RELATIVE INDEX 2.25 (< OR =4)
[2022-08-09 05:16] LABS: ALBUMIN 3.4 GM/DL (3.2-5.2); BILIRUBIN,DIRECT 0.2 MG/DL (0.0-0.2); BILIRUBIN,TOTAL 0.6 MG/DL (0.2-1.0); CALCIUM LEVEL 9.1 MG/DL (8.8-10.2); CREATININE FOR GFR 1.68 MG/DL (0.55-1.30); GLOMERULAR FILTRATION RATE 30.6 (>32); POTASSIUM SERUM 4.7 MEQ/L (3.5-5.1); THYROID STIMULATING HORMONE 26.6 uIU/ML (0.358-3.740); TOTAL PROTEIN 7.9 GM/DL (6.4-8.2)
[2022-08-09 06:56] LABS: ABG BASE EXCESS 0.3 (-2.0-2.0); ABG HCO3 26.9 MEQ/L (22.0-26.0); ABG O2 SATURATION 98.4 % (95.0-99.0); ABG PARTIAL PRESSURE CO2 51.5 mmHg (35.0-45.0); ABG PARTIAL PRESSURE O2 116.8 mmHg (75.0-100.0); ABG STANDARD HCO3 24.8 MEQ/L (22.0-26.0); ABG TOTAL CO2 28.4 MEQ/L (23.0-31.0); ABG pH (ARTERIAL) 7.335 UNITS (7.350-7.450)
[2022-08-09 07:27] LABS: CK-MB VALUE MASS 1.2 NG/ML (<3.6); MB/CK RELATIVE INDEX 0.29 (< OR =4)
[2022-08-09] MEDS ORDERED: GLIP5TAB20 PO (08:23)
[2022-08-09] MEDS ORDERED: LEVO75TA4 PO (08:23)
[2022-08-09] MEDS ORDERED: ATEN50TA2 PO (08:23)
[2022-08-09] MEDS ORDERED: AMLO1TAB24 PO (08:23)
[2022-08-09] MEDS ORDERED: VITMTA PO (08:23)
[2022-08-09] MEDS ORDERED: HOME MED LIST COMPLETE! XX SCH (08:25)
[2022-08-09 11:00] LABS: FREE T4 0.93 NG/DL (0.76-1.46)
[2022-08-09] MEDS ORDERED: ALBUTEROL SULFATE 2.5 MG/0.5 ML INH NEB SOLN INH PRN (13:15)
[2022-08-09] MEDS ORDERED: ALBUTEROL SULFATE 2.5 MG/0.5 ML INH NEB SOLN As Ordered ONE (13:18)
[2022-08-09] MEDS ORDERED: methylPREDNISolone 125MG 2ML VIAL IV STA (13:32)
[2022-08-09] MEDS ORDERED: HEPARIN SOD (PORCINE) 5000UNITS/ML 1ML VIAL/SYRINGE SC SCH (13:45)
[2022-08-09] MEDS ORDERED: LevoFLOXacin IV 750 MG in IV 1 EA IV ONE (14:00)
[2022-08-09] MEDS: IPRATROPIUM 0.5MG/ALBUTEROL 2.5MG INH SOL UD 3ML (DUONEB) NEB SCH ×3 (15:28→23:54)
[2022-08-09 16:48] LABS: CALCIUM LEVEL 8.5 MG/DL (8.8-10.2); CREATININE FOR GFR 1.94 MG/DL (0.55-1.30); GLOMERULAR FILTRATION RATE 25.9 (>32); POTASSIUM SERUM 3.1 MEQ/L (3.5-5.1)
[2022-08-09] MEDS ORDERED: LR 1,000 ML IV ONE (17:00)
[2022-08-09] MEDS ORDERED: POTASSIUM CHLORIDE 10MEQ SR TABLET PO ONE (17:00)
[2022-08-09] MEDS: OMEPRAZOLE 20MG CAP PO SCH (19:39)
[2022-08-09] MEDS: LEVOTHYROXINE 75MCG TABLET (0.075MG) PO SCH (19:39)
[2022-08-09] MEDS: APIXABAN 2.5 MG TAB (ELIQUIS) PO SCH (20:36)
[2022-08-09] MEDS: ATORVASTATIN 20 MG TAB PO SCH (20:36)
[2022-08-09] MEDS: ASPIRIN 81MG ENTERIC TABLET PO SCH (20:36)
[2022-08-09] MEDS: methylPREDNISolone 40MG 1ML VIAL IV SCH (21:24)
[2022-08-10] VITALS (15 sets, daily range): BP systolic 107–137; BP diastolic 53–74; O2SAT 90
[2022-08-10] MEDS: IPRATROPIUM 0.5MG/ALBUTEROL 2.5MG INH SOL UD 3ML (DUONEB) NEB SCH ×6 (03:16→23:33)
[2022-08-10 05:13] LABS: HEMATOCRIT 34.3 % (36.0-47.0); MEAN CORPUSCULAR HEMOGLOBIN 31.4 pg (27.0-33.0); MEAN CORPUSCULAR HGB CONC 31.8 g/dl (32.0-36.5); MEAN CORPUSCULAR VOLUME 98.8 fl (80.0-96.0); PLATELET COUNT, AUTOMATED 150 10^3/uL (150-450); RED BLOOD COUNT 3.47 10^6/uL (4.00-5.40); WHITE BLOOD COUNT 7.5 10^3/uL (4.0-10.0)
[2022-08-10] MEDS: LEVOTHYROXINE 75MCG TABLET (0.075MG) PO SCH (05:16)
[2022-08-10] MEDS: methylPREDNISolone 40MG 1ML VIAL IV SCH (05:16)
[2022-08-10 05:21] LABS: HEMOGLOBIN 10.9 g/dl (12.0-15.5)
[2022-08-10 05:46] LABS: ALBUMIN 2.5 GM/DL (3.2-5.2); BILIRUBIN,TOTAL 0.4 MG/DL (0.2-1.0); CREATININE FOR GFR 2.1 MG/DL (0.55-1.30); GLOMERULAR FILTRATION RATE 23.7 (>32); POTASSIUM SERUM 3.6 MEQ/L (3.5-5.1); TOTAL PROTEIN 6.4 GM/DL (6.4-8.2)
[2022-08-10] MEDS ORDERED: GLUCAGON INJ 1MG VIAL SC PRN (06:00)
[2022-08-10] MEDS ORDERED: DEXTROSE 50% 50 ML SYRINGE IV PRN (06:00)
[2022-08-10] MEDS ORDERED: GLUCOSE 4GM CHEW TABLET PO PRN (06:00)
[2022-08-10] MEDS: INSULIN LISPRO (NovoLOG) PER UNIT SC SCH ×3 (07:30→17:21)
[2022-08-10] MEDS: OMEPRAZOLE 20MG CAP PO SCH (07:56)
[2022-08-10] MEDS: APIXABAN 2.5 MG TAB (ELIQUIS) PO SCH (07:56)
[2022-08-10] MEDS: ACETAMINOPHEN TAB 650MG DOSE (2X325MG) PO PRN ×2 (08:46→16:41)
[2022-08-10] MEDS: atenoloL 25 MG TAB PO SCH (09:32)
[2022-08-10 10:12] LABS: PERCENT SATURATION 7.2 % (13.2-45.0)
[2022-08-10 13:33] LABS: HEMATOCRIT 35.7 % (36.0-47.0); HEMOGLOBIN 11.6 g/dl (12.0-15.5); MEAN CORPUSCULAR HGB CONC 32.5 g/dl (32.0-36.5); MEAN CORPUSCULAR VOLUME 98.3 fl (80.0-96.0); PLATELET COUNT, AUTOMATED 164 10^3/uL (150-450); RED BLOOD COUNT 3.63 10^6/uL (4.00-5.40); WHITE BLOOD COUNT 12.1 10^3/uL (4.0-10.0)
[2022-08-10] MEDS: NICOTINE 21MG/24HR 1 EA TRANSDERMAL TD SCH (17:12)
[2022-08-10] MEDS ORDERED: methylPREDNISolone 125MG 2ML VIAL IV SCH (18:00)
[2022-08-10] MEDS ORDERED: IRON SUCROSE 300 MG in NS 250 ML IV ONE (18:00)
[2022-08-10] MEDS ORDERED: ALBUTEROL SULFATE 2.5 MG/0.5 ML INH NEB SOLN NEB PRN (20:45)
[2022-08-10] MEDS: ATORVASTATIN 20 MG TAB PO SCH (21:05)
[2022-08-10] MEDS: LEVEMIR (INSULIN DETEMIR) 1 UNITS/0.01ML SC SCH (21:05)
[2022-08-11] VITALS (10 sets, daily range): BP systolic 98–125; BP diastolic 53–82; O2SAT 85–97
[2022-08-11] MEDS: IPRATROPIUM 0.5MG/ALBUTEROL 2.5MG INH SOL UD 3ML (DUONEB) NEB SCH ×5 (03:09→20:33)
[2022-08-11] MEDS: LEVOTHYROXINE 75MCG TABLET (0.075MG) PO SCH (05:56)
[2022-08-11 06:26] LABS: HEMATOCRIT 35.8 % (36.0-47.0); HEMOGLOBIN 11.4 g/dl (12.0-15.5); MEAN CORPUSCULAR HEMOGLOBIN 31.7 pg (27.0-33.0); MEAN CORPUSCULAR HGB CONC 31.8 g/dl (32.0-36.5); MEAN CORPUSCULAR VOLUME 99.4 fl (80.0-96.0); PLATELET COUNT, AUTOMATED 174 10^3/uL (150-450); WHITE BLOOD COUNT 13.7 10^3/uL (4.0-10.0)
[2022-08-11 07:12] LABS: ALBUMIN 2.7 GM/DL (3.2-5.2); BILIRUBIN,TOTAL 0.4 MG/DL (0.2-1.0); CALCIUM LEVEL 9.6 MG/DL (8.8-10.2); CREATININE FOR GFR 2.03 MG/DL (0.55-1.30); GLOMERULAR FILTRATION RATE 24.6 (>32); POTASSIUM SERUM 3.8 MEQ/L (3.5-5.1); TOTAL PROTEIN 6.3 GM/DL (6.4-8.2)
[2022-08-11] MEDS: OMEPRAZOLE 20MG CAP PO SCH (08:41)
[2022-08-11] MEDS: atenoloL 25 MG TAB PO SCH (08:41)
[2022-08-11] MEDS: predniSONE 20 MG TAB PO SCH (08:41)
[2022-08-11] MEDS: NICOTINE 21MG/24HR 1 EA TRANSDERMAL TD SCH (08:42)
[2022-08-11] MEDS: INSULIN LISPRO (NovoLOG) PER UNIT SC SCH ×3 (08:42→17:30)
[2022-08-11 08:45] LABS: HEMOGLOBIN A1c 6.9 %
[2022-08-11] MEDS ORDERED: LR 500 ML IV ONE (08:55)
[2022-08-11 12:47] LABS: CALCIUM LEVEL 9.9 MG/DL (8.8-10.2); CREATININE FOR GFR 2.04 MG/DL (0.55-1.30); GLOMERULAR FILTRATION RATE 24.5 (>32); POTASSIUM SERUM 3.9 MEQ/L (3.5-5.1)
[2022-08-11] MEDS: APIXABAN 2.5 MG TAB (ELIQUIS) PO SCH ×2 (12:56→21:15)
[2022-08-11] MEDS ORDERED: LevoFLOXacin IV 500 MG in IV 1 EA IV SCH (14:00)
[2022-08-11] MEDS: LevoFLOXacin 500 MG TABLET PO SCH (16:28)
[2022-08-11] MEDS: LEVEMIR (INSULIN DETEMIR) 1 UNITS/0.01ML SC SCH (21:00)
[2022-08-11] MEDS: ATORVASTATIN 20 MG TAB PO SCH (21:15)
[2022-08-11] MEDS: ASPIRIN 81MG ENTERIC TABLET PO SCH (21:15)
[2022-08-12] MEDS: IPRATROPIUM 0.5MG/ALBUTEROL 2.5MG INH SOL UD 3ML (DUONEB) NEB SCH ×7 (04:00→23:53)
[2022-08-12 05:33] VITALS: BP 105/68
[2022-08-12] MEDS: LEVOTHYROXINE 75MCG TABLET (0.075MG) PO SCH (06:04)
[2022-08-12 06:14] LABS: HEMATOCRIT 37.2 % (36.0-47.0); HEMOGLOBIN 11.9 g/dl (12.0-15.5); MEAN CORPUSCULAR HEMOGLOBIN 32.2 pg (27.0-33.0); MEAN CORPUSCULAR VOLUME 100.5 fl (80.0-96.0); PLATELET COUNT, AUTOMATED 190 10^3/uL (150-450); WHITE BLOOD COUNT 13.4 10^3/uL (4.0-10.0)
[2022-08-12 06:45] LABS: ALBUMIN 2.8 GM/DL (3.2-5.2); BILIRUBIN,TOTAL 0.5 MG/DL (0.2-1.0); CALCIUM LEVEL 9.6 MG/DL (8.8-10.2); CREATININE FOR GFR 1.91 MG/DL (0.55-1.30); GLOMERULAR FILTRATION RATE 26.4 (>32); POTASSIUM SERUM 4.4 MEQ/L (3.5-5.1); TOTAL PROTEIN 6.2 GM/DL (6.4-8.2)
[2022-08-12] MEDS: INSULIN LISPRO (NovoLOG) PER UNIT SC SCH ×3 (07:30→18:23)
[2022-08-12] MEDS: APIXABAN 2.5 MG TAB (ELIQUIS) PO SCH ×2 (08:21→21:39)
[2022-08-12] MEDS: predniSONE 20 MG TAB PO SCH (08:21)
[2022-08-12] MEDS: atenoloL 25 MG TAB PO SCH (08:22)
[2022-08-12] MEDS: NICOTINE 21MG/24HR 1 EA TRANSDERMAL TD SCH (08:22)
[2022-08-12] MEDS: OMEPRAZOLE 20MG CAP PO SCH (08:22)
[2022-08-12] MEDS ORDERED: LEVO1TAB39 PO ×2 (08:56→09:40)
[2022-08-12] MEDS ORDERED: PRED10TA2 PO ×2 (08:56→09:40)
[2022-08-12] MEDS ORDERED: NICO21PAT TD ×2 (08:56→09:40)
[2022-08-12] MEDS ORDERED: ALB2.5NEB NEB ×2 (08:56→09:40)
[2022-08-12] MEDS ORDERED: SYMB16INH INH ×2 (09:04→09:40)
[2022-08-12] MEDS ORDERED: FUROSEMIDE 20MG/2ML VIAL (J1940) IV ONE (12:00)
[2022-08-12 16:00] VITALS: BP 99/55
[2022-08-12] MEDS ORDERED: FUROSEMIDE 40 MG TAB PO ONE (17:00)
[2022-08-12 21:23] VITALS: BP 126/64
[2022-08-12] MEDS: LEVEMIR (INSULIN DETEMIR) 1 UNITS/0.01ML SC SCH (21:39)
[2022-08-12] MEDS: ASPIRIN 81MG ENTERIC TABLET PO SCH (21:39)
[2022-08-12] MEDS: ATORVASTATIN 20 MG TAB PO SCH (21:40)
[2022-08-13] MEDS: IPRATROPIUM 0.5MG/ALBUTEROL 2.5MG INH SOL UD 3ML (DUONEB) NEB SCH ×3 (03:10→11:28)
[2022-08-13 04:58] VITALS: BP 122/66
[2022-08-13] MEDS: LEVOTHYROXINE 75MCG TABLET (0.075MG) PO SCH (05:46)
[2022-08-13 06:20] LABS: HEMATOCRIT 39.4 % (36.0-47.0); HEMOGLOBIN 12.6 g/dl (12.0-15.5); PLATELET COUNT, AUTOMATED 202 10^3/uL (150-450); RED BLOOD COUNT 3.94 10^6/uL (4.00-5.40); WHITE BLOOD COUNT 11.6 10^3/uL (4.0-10.0)
[2022-08-13 06:51] LABS: BILIRUBIN,TOTAL 0.5 MG/DL (0.2-1.0); CREATININE FOR GFR 1.78 MG/DL (0.55-1.30); GLOMERULAR FILTRATION RATE 28.6 (>32); POTASSIUM SERUM 4.4 MEQ/L (3.5-5.1); TOTAL PROTEIN 6.2 GM/DL (6.4-8.2)
[2022-08-13] MEDS ORDERED: predniSONE 10 MG TAB PO SCH (09:00)
[2022-08-13] MEDS: INSULIN LISPRO (NovoLOG) PER UNIT SC SCH ×2 (09:40→12:00)
[2022-08-13] MEDS: OMEPRAZOLE 20MG CAP PO SCH (09:41)
[2022-08-13] MEDS: NICOTINE 21MG/24HR 1 EA TRANSDERMAL TD SCH (09:41)
[2022-08-13] MEDS: APIXABAN 2.5 MG TAB (ELIQUIS) PO SCH (09:41)
[2022-08-13 09:43] VITALS: BP 127/68
[2022-08-13] MEDS: atenoloL 25 MG TAB PO SCH (09:43)
[2022-08-13] MEDS ORDERED: ALBU8.5H INH (11:57)
[2022-08-13] MEDS ORDERED: PRED20TA PO (11:57)
[2022-08-13] MEDS ORDERED: AZIT-12 PO (11:57)
[2022-08-13] MEDS: LevoFLOXacin 500 MG TABLET PO SCH (13:08)
[2022-08-13] MEDS ORDERED: ADVA115A INH (13:18)
[2022-08-13] MEDS ORDERED: LEVEMIR (INSULIN DETEMIR) 1 UNITS/0.01ML SC SCH (21:00)
[2022-08-15] MEDS ORDERED: predniSONE 20 MG TAB PO SCH (09:00)
[2022-08-17] MEDS ORDERED: predniSONE 10 MG TAB PO SCH (09:00)
[2022-08-19] MEDS ORDERED: predniSONE 5 MG TAB PO SCH (09:00)
== END 2022-08-13 14:24 | disposition home or self-care (01) | DRG 189 ==
LOC: M ED 04:04 → M ICU 13:42 → ENRESERV 13:59 → M MSPAV 08-11 16:47
PROVIDERS: ADMIT Internal Medicine Pulmonary Disease; ATTEND Student in an Organized Health Care Education/Training Program
PROC: B246ZZZ Ultrasonography of Right and Left Heart (ICD-10-PCS; principal; 2022-08-10)
DX: J96.22 Acute and chronic respiratory failure with hypercapnia (principal); I50.33 Acute on chronic diastolic (congestive) heart failure; E22.2 Syndrome of inappropriate secretion of antidiuretic hormone; J44.1 Chronic obstructive pulmonary disease with (acute) exacerbation; N17.9 Acute kidney failure, unspecified; E87.29 Other acidosis; N18.30 Chronic kidney disease, stage 3 unspecified; I48.91 Unspecified atrial fibrillation; Z95.0 Presence of cardiac pacemaker; I25.2 Old myocardial infarction; E03.9 Hypothyroidism, unspecified; E11.22 Type 2 diabetes mellitus with diabetic chronic kidney disease; F17.210 Nicotine dependence, cigarettes, uncomplicated; E78.5 Hyperlipidemia, unspecified; I25.10 Atherosclerotic heart disease of native coronary artery without angina pectoris; Z98.49 Cataract extraction status, unspecified eye; Z95.828 Presence of other vascular implants and grafts; Z79.01 Long term (current) use of anticoagulants; Z79.82 Long term (current) use of aspirin; Z79.890 Hormone replacement therapy; Z79.899 Other long term (current) drug therapy; Z20.822 Contact with and (suspected) exposure to COVID-19; Z88.0 Allergy status to penicillin; Z88.8 Allergy status to other drugs, medicaments and biological substances; D50.9 Iron deficiency anemia, unspecified; Z66 Do not resuscitate; J96.21 Acute and chronic respiratory failure with hypoxia; K21.9 Gastro-esophageal reflux disease without esophagitis; B34.8 Other viral infections of unspecified site

== ENCOUNTER 2022-08-21 19:19 | Inpatient (IN) | payer MEDICARE ==
[~2022-08-21] VITALS: Ht 154.9 cm; Wt 58.9 kg
[~2022-08-21 19:19] MED LIST changes: +ADVA115A INH; +ALB2.5NEB NEB; +ALBU8.5H INH; +AMLO1TAB24 PO; +ATEN50TA2 PO; +AZIT-12 PO; +GLIP5TAB20 PO; +LEVO1TAB39 PO; +LEVO75TA4 PO; +NICO21PAT TD; +PRED10TA2 PO; +PRED20TA PO; +SYMB16INH INH; +VITMTA PO
[2022-08-21] MEDS ORDERED: IPRATROPIUM 0.5MG/ALBUTEROL 2.5MG INH SOL UD 3ML (DUONEB) NEB ONE (20:20)
[2022-08-21 20:28] LABS: BASO # 0.1 10^3/uL (0.0-0.2); BASO % 0.3 % (0.0-1.0); EOS % 0.1 % (0.0-3.0); HEMATOCRIT 38.9 % (36.0-47.0); HEMOGLOBIN 12.5 g/dl (12.0-15.5); LYMPH # 0.8 10^3/uL (1.5-5.0); LYMPH % 2.2 % (24.0-44.0); MEAN CORPUSCULAR HEMOGLOBIN 31.5 pg (27.0-33.0); MEAN CORPUSCULAR HGB CONC 32.1 g/dl (32.0-36.5); MONO # 1.4 10^3/uL (0.0-0.8); MONO % 4.1 % (2.0-8.0); NEUTROPHILS # 31.6 10^3/uL (1.5-8.5); NEUTROPHILS % 91.3 % (36.0-66.0); PLATELET COUNT, AUTOMATED 168 10^3/uL (150-450); RED BLOOD COUNT 3.97 10^6/uL (4.00-5.40)
[2022-08-21 20:31] LABS: ABG BASE EXCESS 5.2 (-2.0-2.0); ABG HCO3 29.5 MEQ/L (22.0-26.0); ABG O2 SATURATION 92.6 % (95.0-99.0); ABG PARTIAL PRESSURE CO2 42.4 mmHg (35.0-45.0); ABG PARTIAL PRESSURE O2 58.3 mmHg (75.0-100.0); ABG TOTAL CO2 30.8 MEQ/L (23.0-31.0); ABG pH (ARTERIAL) 7.461 UNITS (7.350-7.450)
[2022-08-21 20:33] LABS: WHITE BLOOD COUNT 34.6 10^3/uL (4.0-10.0)
[2022-08-21] MEDS: INSULIN LISPRO (NovoLOG) PER UNIT SC SCH (21:00)
[2022-08-21 21:09] LABS: ALBUMIN 2.7 GM/DL (3.2-5.2); BILIRUBIN,DIRECT 0.2 MG/DL (0.0-0.2); BILIRUBIN,TOTAL 0.8 MG/DL (0.2-1.0); CALCIUM LEVEL 8.6 MG/DL (8.8-10.2); CREATININE FOR GFR 1.33 MG/DL (0.55-1.30); GLOMERULAR FILTRATION RATE 40.1 (>32); POTASSIUM SERUM 4.3 MEQ/L (3.5-5.1); TOTAL PROTEIN 5.3 GM/DL (6.4-8.2)
[2022-08-21 21:12] LABS: CPK CREATINE PHOSPHOKINASE 44 U/L (26-192)
[2022-08-21] MEDS ORDERED: FUROSEMIDE 100MG/10ML VIAL (J1940) IV ONE (21:25)
[2022-08-21] MEDS ORDERED: CEFTAROLINE FOSAMIL 600 MG in D5W MINI-BAG PLUS 50 ML IV ONE (21:25)
[2022-08-21] MEDS ORDERED: metroNIDAZOLE 500 MG in IV 1 EA IV SCH (23:00)
[2022-08-21] MEDS ORDERED: NS 1,000 ML IV SCH (23:15)
[2022-08-21] MEDS ORDERED: NS 1,000 ML IV ONE (23:15)
[2022-08-21] MEDS ORDERED: GLUCAGON INJ 1MG VIAL SC PRN (23:30)
[2022-08-21] MEDS ORDERED: GLUCOSE 4GM CHEW TABLET PO PRN (23:30)
[2022-08-21] MEDS ORDERED: ACETAMINOPHEN TAB 650MG DOSE (2X325MG) PO PRN (23:30)
[2022-08-21] MEDS ORDERED: DEXTROSE 50% 50 ML SYRINGE IV PRN (23:30)
[2022-08-21] MEDS ORDERED: ALBUTEROL 90 MCG/ACT 8GM HFA INHALER INH PRN (23:30)
[2022-08-21] MEDS ORDERED: NICO21DI38 TD (23:40)
[2022-08-21] MEDS ORDERED: ALBU2.5V10 INH (23:40)
[2022-08-21] MEDS ORDERED: ADVA115A INH (23:40)
[2022-08-21] MEDS ORDERED: FURO20TA2 PO (23:43)
[2022-08-21] MEDS ORDERED: HOME MED LIST COMPLETE! XX SCH (23:45)
[2022-08-22 01:28] LABS: BLOOD UREA NITROGEN 19 MG/DL (7-18); CALCIUM LEVEL 5.5 MG/DL (8.8-10.2); CARBON DIOXIDE LEVEL 23 MEQ/L (21-32); CHLORIDE LEVEL 117 MEQ/L (98-107); GLOMERULAR FILTRATION RATE > 60.0 (>32); GLUCOSE, FASTING 133 MG/DL (70-100); POTASSIUM SERUM 3.1 MEQ/L (3.5-5.1); SODIUM LEVEL 146 MEQ/L (136-145)
[2022-08-22 01:45] VITALS: BP 102/50
[2022-08-22] MEDS: IPRATROPIUM 0.5MG/ALBUTEROL 2.5MG INH SOL UD 3ML (DUONEB) NEB SCH ×4 (02:00→20:28)
[2022-08-22] MEDS: methylPREDNISolone 40MG 1ML VIAL IV SCH ×4 (02:00→22:42)
[2022-08-22] MEDS: metroNIDAZOLE 500 MG in IV 1 EA IV SCH ×2 (02:00→08:33)
[2022-08-22] MEDS: AZTREONAM 1 GM in D5W MINI-BAG PLUS 50 ML IV SCH ×2 (02:48→11:03)
[2022-08-22 04:00] VITALS: BP 116/56
[2022-08-22] MEDS ORDERED: NS 0.45% 1,000 ML IV SCH (05:35)
[2022-08-22] MEDS ORDERED: POTASSIUM CHLORIDE 10% LIQ 20 MEQ/15 ML UDC PO ONE (05:35)
[2022-08-22] MEDS: LEVOTHYROXINE 75MCG TABLET (0.075MG) PO SCH (05:56)
[2022-08-22] MEDS: KCL 10MEQ/100ML SWI (KRUN) 10 MEQ in IV 1 EA IV SCH ×2 (05:56→08:07)
[2022-08-22 06:25] LABS: LDH LACTATE DEHYDROGENASE 134 U/L (84-246)
[2022-08-22 07:11] LABS: HEMATOCRIT 34.3 % (36.0-47.0); HEMOGLOBIN 11.5 g/dl (12.0-15.5)
[2022-08-22 07:51] VITALS: BP 118/57
[2022-08-22 08:04] LABS: CALCIUM LEVEL 8.4 MG/DL (8.8-10.2); CREATININE FOR GFR 1.4 MG/DL (0.55-1.30); GLOMERULAR FILTRATION RATE 37.8 (>32); POTASSIUM SERUM 4.5 MEQ/L (3.5-5.1)
[2022-08-22] MEDS: INSULIN LISPRO (NovoLOG) PER UNIT SC SCH ×4 (08:33→22:55)
[2022-08-22] MEDS: OMEPRAZOLE 20MG CAP PO SCH (08:33)
[2022-08-22 11:48] VITALS: BP 123/57
[2022-08-22] MEDS ORDERED: CEFTAROLINE FOSAMIL 600 MG in D5W MINI-BAG PLUS 50 ML IV SCH (12:30)
[2022-08-22] MEDS ORDERED: LR 500 ML IV ONE (13:00)
[2022-08-22] MEDS: FUROSEMIDE 20 MG TAB PO SCH (13:24)
[2022-08-22] MEDS: NICOTINE 21MG/24HR 1 EA TRANSDERMAL TD SCH (13:24)
[2022-08-22 16:00] VITALS: BP 115/58
[2022-08-22] MEDS: MAGNESIUM OXIDE 400MG TAB (MAG-OX) PO SCH ×2 (17:12→22:42)
[2022-08-22] MEDS: CEFEPIME HCL 1 GM in D5W MINI-BAG PLUS 50 ML IV SCH (17:13)
[2022-08-22 20:00] VITALS: BP 124/56; O2SAT 90
[2022-08-22] MEDS: ADVAIR HFA 115/21MCG INHALER INH SCH (20:28)
[2022-08-22] MEDS ORDERED: ASPIRIN 81MG ENTERIC TABLET PO SCH (21:00)
[2022-08-22] MEDS ORDERED: APIXABAN 2.5 MG TAB (ELIQUIS) PO SCH (21:00)
[2022-08-22] MEDS: ATORVASTATIN 20 MG TAB PO SCH (22:42)
[2022-08-23] MEDS: IPRATROPIUM 0.5MG/ALBUTEROL 2.5MG INH SOL UD 3ML (DUONEB) NEB SCH ×4 (01:14→19:44)
[2022-08-23] MEDS: methylPREDNISolone 40MG 1ML VIAL IV SCH (02:29)
[2022-08-23 04:00] VITALS: BP 112/56; O2SAT 94
[2022-08-23] MEDS: CEFEPIME HCL 1 GM in D5W MINI-BAG PLUS 50 ML IV SCH ×2 (04:36→16:49)
[2022-08-23] MEDS: LEVOTHYROXINE 75MCG TABLET (0.075MG) PO SCH (05:42)
[2022-08-23] MEDS: ADVAIR HFA 115/21MCG INHALER INH SCH ×2 (07:33→19:44)
[2022-08-23 07:37] VITALS: BP 115/54
[2022-08-23 07:53] LABS: HEMATOCRIT 32.1 % (36.0-47.0); HEMOGLOBIN 10.7 g/dl (12.0-15.5); MEAN CORPUSCULAR HEMOGLOBIN 32.8 pg (27.0-33.0); MEAN CORPUSCULAR HGB CONC 33.3 g/dl (32.0-36.5); MEAN CORPUSCULAR VOLUME 98.5 fl (80.0-96.0); PLATELET COUNT, AUTOMATED 138 10^3/uL (150-450); RED BLOOD COUNT 3.26 10^6/uL (4.00-5.40); WHITE BLOOD COUNT 25.8 10^3/uL (4.0-10.0)
[2022-08-23 08:18] LABS: ALBUMIN 2.4 GM/DL (3.2-5.2); BILIRUBIN,TOTAL 0.6 MG/DL (0.2-1.0); CALCIUM LEVEL 9.1 MG/DL (8.8-10.2); CREATININE FOR GFR 1.68 MG/DL (0.55-1.30); GLOMERULAR FILTRATION RATE 30.6 (>32); MAGNESIUM LEVEL 1.9 MG/DL (1.8-2.4); POTASSIUM SERUM 4.6 MEQ/L (3.5-5.1); TOTAL PROTEIN 5.1 GM/DL (6.4-8.2)
[2022-08-23] MEDS: atenoloL 50 MG TAB PO SCH (08:50)
[2022-08-23] MEDS: OMEPRAZOLE 20MG CAP PO SCH (08:50)
[2022-08-23] MEDS: ASPIRIN 81MG ENTERIC TABLET PO SCH (08:51)
[2022-08-23] MEDS: APIXABAN 2.5 MG TAB (ELIQUIS) PO SCH ×2 (08:51→21:44)
[2022-08-23] MEDS: MAGNESIUM OXIDE 400MG TAB (MAG-OX) PO SCH ×3 (08:51→21:44)
[2022-08-23] MEDS: FUROSEMIDE 20 MG TAB PO SCH (08:51)
[2022-08-23] MEDS: NICOTINE 21MG/24HR 1 EA TRANSDERMAL TD SCH (08:52)
[2022-08-23] MEDS: INSULIN LISPRO (NovoLOG) PER UNIT SC SCH ×4 (08:52→21:00)
[2022-08-23] MEDS ORDERED: amLODIPine 5 MG TAB PO SCH (09:00)
[2022-08-23] MEDS ORDERED: atenoloL 50 MG TAB PO SCH (09:00)
[2022-08-23 14:00] VITALS: BP 119/56
[2022-08-23 20:00] VITALS: BP 132/60
[2022-08-23] MEDS: ATORVASTATIN 20 MG TAB PO SCH (21:44)
[2022-08-24] VITALS (15 sets, daily range): BP systolic 119–130; BP diastolic 54–65; O2SAT 89–97
[2022-08-24] MEDS: IPRATROPIUM 0.5MG/ALBUTEROL 2.5MG INH SOL UD 3ML (DUONEB) NEB SCH ×4 (01:17→20:09)
[2022-08-24] MEDS: LEVOTHYROXINE 75MCG TABLET (0.075MG) PO SCH (05:31)
[2022-08-24] MEDS: CEFEPIME HCL 1 GM in D5W MINI-BAG PLUS 50 ML IV SCH (05:31)
[2022-08-24 06:00] LABS: HEMATOCRIT 31.5 % (36.0-47.0); HEMOGLOBIN 10.2 g/dl (12.0-15.5); MEAN CORPUSCULAR HEMOGLOBIN 32.3 pg (27.0-33.0); MEAN CORPUSCULAR HGB CONC 32.4 g/dl (32.0-36.5); MEAN CORPUSCULAR VOLUME 99.7 fl (80.0-96.0); PLATELET COUNT, AUTOMATED 124 10^3/uL (150-450); RED BLOOD COUNT 3.16 10^6/uL (4.00-5.40); WHITE BLOOD COUNT 17.8 10^3/uL (4.0-10.0)
[2022-08-24 06:34] LABS: CALCIUM LEVEL 9.2 MG/DL (8.8-10.2); CREATININE FOR GFR 1.71 MG/DL (0.55-1.30); MAGNESIUM LEVEL 2.2 MG/DL (1.8-2.4); POTASSIUM SERUM 4.8 MEQ/L (3.5-5.1)
[2022-08-24] MEDS ORDERED: LR 1,000 ML IV ONE (07:10)
[2022-08-24] MEDS: ADVAIR HFA 115/21MCG INHALER INH SCH ×2 (07:47→20:09)
[2022-08-24] MEDS: INSULIN LISPRO (NovoLOG) PER UNIT SC SCH ×4 (08:39→20:34)
[2022-08-24] MEDS: MAGNESIUM OXIDE 400MG TAB (MAG-OX) PO SCH ×3 (08:40→20:25)
[2022-08-24] MEDS: NICOTINE 21MG/24HR 1 EA TRANSDERMAL TD SCH (08:40)
[2022-08-24] MEDS: ASPIRIN 81MG ENTERIC TABLET PO SCH (08:40)
[2022-08-24] MEDS: APIXABAN 2.5 MG TAB (ELIQUIS) PO SCH ×2 (08:41→20:25)
[2022-08-24] MEDS: atenoloL 50 MG TAB PO SCH (08:41)
[2022-08-24 13:29] LABS: CALCIUM LEVEL 9.1 MG/DL (8.8-10.2); CREATININE FOR GFR 1.61 MG/DL (0.55-1.30); GLOMERULAR FILTRATION RATE 32.2 (>32); POTASSIUM SERUM 4.8 MEQ/L (3.5-5.1)
[2022-08-24] MEDS ORDERED: LevoFLOXacin 750 MG TABLET PO ONE (18:00)
[2022-08-24] MEDS: ATORVASTATIN 20 MG TAB PO SCH (20:25)
[2022-08-25 01:21] VITALS: O2SAT 92
[2022-08-25] MEDS: IPRATROPIUM 0.5MG/ALBUTEROL 2.5MG INH SOL UD 3ML (DUONEB) NEB SCH ×2 (01:21→07:19)
[2022-08-25] MEDS: LEVOTHYROXINE 75MCG TABLET (0.075MG) PO SCH (05:34)
[2022-08-25 06:00] VITALS: BP 137/61
[2022-08-25 06:42] LABS: HEMATOCRIT 29.7 % (36.0-47.0); HEMOGLOBIN 9.9 g/dl (12.0-15.5); MEAN CORPUSCULAR HEMOGLOBIN 32.2 pg (27.0-33.0); MEAN CORPUSCULAR HGB CONC 33.3 g/dl (32.0-36.5); MEAN CORPUSCULAR VOLUME 96.7 fl (80.0-96.0); PLATELET COUNT, AUTOMATED 126 10^3/uL (150-450); RED BLOOD COUNT 3.07 10^6/uL (4.00-5.40); WHITE BLOOD COUNT 9.4 10^3/uL (4.0-10.0)
[2022-08-25 06:55] LABS: CREATININE FOR GFR 1.39 MG/DL (0.55-1.30); GLOMERULAR FILTRATION RATE 38.1 (>32); MAGNESIUM LEVEL 1.9 MG/DL (1.8-2.4); POTASSIUM SERUM 4.4 MEQ/L (3.5-5.1)
[2022-08-25] MEDS: ADVAIR HFA 115/21MCG INHALER INH SCH (07:19)
[2022-08-25] MEDS: INSULIN LISPRO (NovoLOG) PER UNIT SC SCH (07:30)
[2022-08-25] MEDS ORDERED: LEVO1TAB39 PO (08:58)
[2022-08-25] MEDS: MAGNESIUM OXIDE 400MG TAB (MAG-OX) PO SCH (09:55)
[2022-08-25] MEDS: ASPIRIN 81MG ENTERIC TABLET PO SCH (09:55)
[2022-08-25 09:56] VITALS: BP 139/61
[2022-08-25] MEDS: atenoloL 50 MG TAB PO SCH (09:56)
[2022-08-25] MEDS: APIXABAN 2.5 MG TAB (ELIQUIS) PO SCH (09:56)
[2022-08-25] MEDS: NICOTINE 21MG/24HR 1 EA TRANSDERMAL TD SCH (09:57)
[2022-08-26 15:07] LABS: BODY FLUID CULTURE Not indicated. (.); LEGIONELLA ANTIGEN URINE Negative (Negative); ORGANISM ID Not indicated. (.); SPECIMEN SOURCE Urine (.); URINE STREP PNEUMONIAE ANTIGEN Negative (Negative)
[2022-08-26 15:07] LABS: BODY FLUID CULTURE Not indicated. (.); LEGIONELLA ANTIGEN URINE Negative (Negative); ORGANISM ID Not indicated. (.); SPECIMEN SOURCE Urine (.); URINE STREP PNEUMONIAE ANTIGEN Negative (Negative)
[2022-08-26] MEDS ORDERED: LevoFLOXacin 500 MG TABLET PO SCH (18:00)
== END 2022-08-25 10:29 | disposition home or self-care (01) | DRG 871 ==
LOC: M ED 19:19 → M ED INP 23:27 → M PCU 08-22 01:19 → M MSPAV 08-24 13:48
PROVIDERS: ADMIT Internal Medicine; ATTEND Student in an Organized Health Care Education/Training Program
DX: A41.9 Sepsis, unspecified organism (principal); J18.9 Pneumonia, unspecified organism; J44.0 Chronic obstructive pulmonary disease with (acute) lower respiratory infection; J44.1 Chronic obstructive pulmonary disease with (acute) exacerbation; R04.2 Hemoptysis; J96.11 Chronic respiratory failure with hypoxia; N17.9 Acute kidney failure, unspecified; E87.21 Acute metabolic acidosis; J91.8 Pleural effusion in other conditions classified elsewhere; R65.20 Severe sepsis without septic shock; I27.81 Cor pulmonale (chronic); I10 Essential (primary) hypertension; I27.20 Pulmonary hypertension, unspecified; E11.9 Type 2 diabetes mellitus without complications; E03.9 Hypothyroidism, unspecified; K21.9 Gastro-esophageal reflux disease without esophagitis; I48.91 Unspecified atrial fibrillation; I25.10 Atherosclerotic heart disease of native coronary artery without angina pectoris; Z66 Do not resuscitate; I49.3 Ventricular premature depolarization; F17.210 Nicotine dependence, cigarettes, uncomplicated; Z79.899 Other long term (current) drug therapy; Z79.82 Long term (current) use of aspirin; Z88.0 Allergy status to penicillin; Z88.8 Allergy status to other drugs, medicaments and biological substances; Z79.01 Long term (current) use of anticoagulants

== ENCOUNTER 2022-09-29 16:44 | Inpatient (IN) | payer MEDICARE ==
[~2022-09-29] VITALS: Ht 157.5 cm; Wt 53.8 kg
[~2022-09-29 16:44] MED LIST changes: +ALBU2.5V10 INH; +NICO21DI38 TD
[2022-09-29] MEDS ORDERED: FUROSEMIDE 40MG/4ML VIAL (J1940) IV ONE (17:05)
[2022-09-29] MEDS ORDERED: methylPREDNISolone 125MG 2ML VIAL IV ONE (17:05)
[2022-09-29 17:18] LABS: ABG BASE EXCESS -6.2 (-2.0-2.0); ABG O2 SATURATION 92.7 % (95.0-99.0); ABG PARTIAL PRESSURE CO2 63.7 mmHg (35.0-45.0); ABG PARTIAL PRESSURE O2 80.7 mmHg (75.0-100.0); ABG STANDARD HCO3 19.3 MEQ/L (22.0-26.0); ABG pH (ARTERIAL) 7.176 UNITS (7.350-7.450)
[2022-09-29 17:26] LABS: BASO # 0.1 10^3/uL (0.0-0.2); BASO % 0.7 % (0.0-1.0); EOS # 0.2 10^3/uL (0.0-0.5); HEMATOCRIT 38.4 % (36.0-47.0); HEMOGLOBIN 11.8 g/dl (12.0-15.5); LYMPH # 2.3 10^3/uL (1.5-5.0); LYMPH % 23.6 % (24.0-44.0); MEAN CORPUSCULAR HEMOGLOBIN 32.5 pg (27.0-33.0); MEAN CORPUSCULAR HGB CONC 30.7 g/dl (32.0-36.5); MEAN CORPUSCULAR VOLUME 105.8 fl (80.0-96.0); MONO # 0.7 10^3/uL (0.0-0.8); MONO % 6.9 % (2.0-8.0); NEUTROPHILS # 6.3 10^3/uL (1.5-8.5); NEUTROPHILS % 66.4 % (36.0-66.0); PLATELET COUNT, AUTOMATED 255 10^3/uL (150-450); RED BLOOD COUNT 3.63 10^6/uL (4.00-5.40); WHITE BLOOD COUNT 9.5 10^3/uL (4.0-10.0)
[2022-09-29] MEDS ORDERED: cefTRIAXone SOD 2 GM in D5W MINI-BAG PLUS 50 ML IV ONE (18:00)
[2022-09-29 18:12] LABS: ALBUMIN 3.5 G/DL (3.2-5.2); BILIRUBIN,DIRECT 0.2 MG/DL (<0.4); BILIRUBIN,TOTAL 0.6 MG/DL (0.3-1.2); CALCIUM LEVEL 9.4 MG/DL (8.3-10.6); CK-MB VALUE MASS 1.6 NG/ML (<3.6); CREATININE FOR GFR 1.03 MG/DL (0.55-1.30); GLOMERULAR FILTRATION RATE 53.7 (>32); MB/CK RELATIVE INDEX 2.58 (< OR =4); POTASSIUM SERUM 4.7 MMOL/L (3.5-5.1); THYROID STIMULATING HORMONE 21.86 uIU/ML (0.55-4.78); TOTAL PROTEIN 6.5 G/DL (5.7-8.2)
[2022-09-29 18:46] LABS: ABG HCO3 25.8 MEQ/L (22.0-26.0); ABG O2 SATURATION 99.3 % (95.0-99.0); ABG PARTIAL PRESSURE CO2 46.7 mmHg (35.0-45.0); ABG PARTIAL PRESSURE O2 168.5 mmHg (75.0-100.0); ABG STANDARD HCO3 24.5 MEQ/L (22.0-26.0); ABG TOTAL CO2 27.2 MEQ/L (23.0-31.0)
[2022-09-29] MEDS ORDERED: GLUCAGON INJ 1MG VIAL SC PRN (19:35)
[2022-09-29] MEDS ORDERED: DEXTROSE 50% 50 ML SYRINGE IV PRN (19:35)
[2022-09-29] MEDS ORDERED: GLUCOSE 4GM CHEW TABLET PO PRN (19:35)
[2022-09-29] MEDS: IPRATROPIUM 0.5MG/ALBUTEROL 2.5MG INH SOL UD 3ML (DUONEB) NEB SCH ×4 (19:45→22:22)
[2022-09-29] MEDS ORDERED: FURO20TA2 PO (20:31)
[2022-09-29] MEDS ORDERED: ALBUTEROL SULFATE 2.5 MG/0.5 ML INH NEB SOLN NEB PRN (20:35)
[2022-09-29] MEDS ORDERED: HOME MED LIST COMPLETE! XX SCH (20:35)
[2022-09-29 20:43] LABS: INR 1.04; PROTHROMBIN TIME 13.8 SECONDS (12.5-14.5)
[2022-09-29 20:44] LABS: PARTIAL THROMBOPLASTIN TIME 27.9 SECONDS (24.8-34.2)
[2022-09-29 20:59] LABS: FREE T4 1.27 NG/DL (0.89-1.76)
[2022-09-29] MEDS: DOXYCYCLINE HYCLATE 100MG TABLET PO SCH (21:14)
[2022-09-29] MEDS: ATORVASTATIN 20 MG TAB PO SCH (21:14)
[2022-09-29 22:20] VITALS: BP 139/62
[2022-09-29 22:21] VITALS: O2SAT 98
[2022-09-29 23:06] LABS: CK-MB VALUE MASS 7.3 NG/ML (<3.6); MB/CK RELATIVE INDEX 8.39 (< OR =4)
[2022-09-29 23:34] VITALS: BP 137/63
[2022-09-29] MEDS: ADVAIR HFA 115/21MCG INHALER INH SCH (23:44)
[2022-09-29 23:50] VITALS: O2SAT 98
[2022-09-30] VITALS (12 sets, daily range): BP systolic 113–143; BP diastolic 53–67
[2022-09-30] MEDS: ASPIRIN 81MG ENTERIC TABLET PO SCH ×2 (00:09→20:03)
[2022-09-30] MEDS: APIXABAN 2.5 MG TAB (ELIQUIS) PO SCH ×3 (00:09→20:04)
[2022-09-30] MEDS: INSULIN LISPRO (NovoLOG) PER UNIT SC SCH ×5 (00:16→20:00)
[2022-09-30] MEDS ORDERED: IPRATROPIUM 0.5MG/ALBUTEROL 2.5MG INH SOL UD 3ML (DUONEB) NEB SCH (02:00)
[2022-09-30] MEDS ORDERED: FUROSEMIDE 40MG/4ML VIAL (J1940) IV SCH (02:00)
[2022-09-30] MEDS: methylPREDNISolone 40MG 1ML VIAL IV SCH ×3 (02:48→17:34)
[2022-09-30 05:00] LABS: VENOUS BASE EXCESS 4.3 (-2.0-2.0); VENOUS HCO3 29.6 MEQ/L (23.0-27.0); VENOUS O2 SATURATION 98.9 % (60.0-80.0); VENOUS PARTIAL PRESSURE CO2 47.3 mmHg (38.0-50.0); VENOUS PARTIAL PRESSURE O2 157.5 mmHg (30.0-50.0); VENOUS PH 7.414 UNITS (7.330-7.430); VENOUS STANDARD HCO3 28.3 MEQ/L
[2022-09-30 05:31] LABS: CALCIUM LEVEL 9.1 MG/DL (8.3-10.6); CREATININE FOR GFR 1.03 MG/DL (0.55-1.30); GLOMERULAR FILTRATION RATE 53.7 (>32); MAGNESIUM LEVEL 1.6 MG/DL (1.8-2.4); PHOSPHORUS LEVEL 3.9 MG/DL (2.4-5.1); POTASSIUM SERUM 4.7 MMOL/L (3.5-5.1)
[2022-09-30 06:37] LABS: ABG BASE EXCESS 3.4 (-2.0-2.0); ABG HCO3 26.9 MEQ/L (22.0-26.0); ABG PARTIAL PRESSURE CO2 37.2 mmHg (35.0-45.0); ABG PARTIAL PRESSURE O2 127.4 mmHg (75.0-100.0); ABG STANDARD HCO3 27.5 MEQ/L (22.0-26.0); ABG pH (ARTERIAL) 7.477 UNITS (7.350-7.450)
[2022-09-30] MEDS: LEVOTHYROXINE 75MCG TABLET (0.075MG) PO SCH (06:38)
[2022-09-30] MEDS: ADVAIR HFA 115/21MCG INHALER INH SCH ×2 (07:27→19:10)
[2022-09-30] MEDS: IPRATROPIUM 0.5MG/ALBUTEROL 2.5MG INH SOL UD 3ML (DUONEB) NEB SCH ×5 (07:27→23:44)
[2022-09-30] MEDS: OMEPRAZOLE 20MG CAP PO SCH (08:26)
[2022-09-30] MEDS: DOXYCYCLINE HYCLATE 100MG TABLET PO SCH ×2 (08:26→20:03)
[2022-09-30] MEDS: MAGNESIUM OXIDE 400MG TAB (MAG-OX) PO SCH ×3 (08:27→20:03)
[2022-09-30] MEDS: atenoloL 50 MG TAB PO SCH (08:27)
[2022-09-30] MEDS: amLODIPine 5 MG TAB PO SCH (08:28)
[2022-09-30] MEDS: FUROSEMIDE 40MG/4ML VIAL (J1940) IV SCH (08:28)
[2022-09-30] MEDS ORDERED: GLUCAGON INJ 1MG VIAL SC PRN (11:25)
[2022-09-30] MEDS ORDERED: DEXTROSE 50% 50 ML SYRINGE IV PRN (11:25)
[2022-09-30] MEDS ORDERED: GLUCOSE 4GM CHEW TABLET PO PRN (11:25)
[2022-09-30 12:25] LABS: CK-MB VALUE MASS 8.1 NG/ML (<3.6); MB/CK RELATIVE INDEX 8.18 (< OR =4)
[2022-09-30] MEDS ORDERED: FUROSEMIDE 40MG/4ML VIAL (J1940) IV ONE (16:00)
[2022-09-30] MEDS ORDERED: ALBUTEROL SULFATE 2.5 MG/0.5 ML INH NEB SOLN NEB PRN (16:10)
[2022-09-30 17:11] LABS: CALCIUM LEVEL 8.7 MG/DL (8.3-10.6); CREATININE FOR GFR 1.3 MG/DL (0.55-1.30); GLOMERULAR FILTRATION RATE 41.1 (>32); MAGNESIUM LEVEL 1.5 MG/DL (1.8-2.4); POTASSIUM SERUM 4.4 MMOL/L (3.5-5.1)
[2022-09-30] MEDS ORDERED: cefTRIAXone SOD 1 GM in D5W MINI-BAG PLUS 50 ML IV SCH (18:00)
[2022-09-30] MEDS ORDERED: MAG SULF 1GM/100ML (MAG RUN) 1 GM in IV 1 EA IV ONE (18:00)
[2022-09-30] MEDS: ATORVASTATIN 20 MG TAB PO SCH (20:03)
[2022-10-01] VITALS (15 sets, daily range): BP systolic 105–130; BP diastolic 52–67
[2022-10-01] MEDS: methylPREDNISolone 40MG 1ML VIAL IV SCH ×3 (02:19→21:50)
[2022-10-01] MEDS: IPRATROPIUM 0.5MG/ALBUTEROL 2.5MG INH SOL UD 3ML (DUONEB) NEB SCH ×5 (04:32→19:15)
[2022-10-01 04:52] LABS: HEMATOCRIT 30.4 % (36.0-47.0); HEMOGLOBIN 9.9 g/dl (12.0-15.5)
[2022-10-01 05:38] LABS: CALCIUM LEVEL 8.9 MG/DL (8.3-10.6); CREATININE FOR GFR 1.45 MG/DL (0.55-1.30); GLOMERULAR FILTRATION RATE 36.2 (>32); POTASSIUM SERUM 4.6 MMOL/L (3.5-5.1)
[2022-10-01] MEDS: LEVOTHYROXINE 75MCG TABLET (0.075MG) PO SCH (06:02)
[2022-10-01 06:14] LABS: ABG BASE EXCESS 4.9 (-2.0-2.0); ABG HCO3 29.6 MEQ/L (22.0-26.0); ABG O2 SATURATION 95.5 % (95.0-99.0); ABG PARTIAL PRESSURE CO2 44.5 mmHg (35.0-45.0); ABG PARTIAL PRESSURE O2 78.8 mmHg (75.0-100.0); ABG STANDARD HCO3 28.8 MEQ/L (22.0-26.0); ABG pH (ARTERIAL) 7.441 UNITS (7.350-7.450)
[2022-10-01] MEDS: ADVAIR HFA 115/21MCG INHALER INH SCH ×2 (07:39→19:23)
[2022-10-01 07:43] LABS: MAGNESIUM LEVEL 1.9 MG/DL (1.8-2.4)
[2022-10-01] MEDS: INSULIN LISPRO (NovoLOG) PER UNIT SC SCH ×4 (08:48→20:11)
[2022-10-01] MEDS: OMEPRAZOLE 20MG CAP PO SCH (08:48)
[2022-10-01] MEDS: DOXYCYCLINE HYCLATE 100MG TABLET PO SCH ×2 (08:49→20:11)
[2022-10-01] MEDS: MAGNESIUM OXIDE 400MG TAB (MAG-OX) PO SCH ×3 (08:49→20:12)
[2022-10-01] MEDS: atenoloL 50 MG TAB PO SCH (08:49)
[2022-10-01] MEDS: FUROSEMIDE 40MG/4ML VIAL (J1940) IV SCH (08:49)
[2022-10-01] MEDS: amLODIPine 5 MG TAB PO SCH (08:49)
[2022-10-01] MEDS: glipiZIDE XL 5 MG TABCR PO SCH (09:00)
[2022-10-01 12:02] LABS: BASO % 0.1 % (0.0-1.0); HEMATOCRIT 31.1 % (36.0-47.0); LYMPH # 0.3 10^3/uL (1.5-5.0); LYMPH % 2.4 % (24.0-44.0); MEAN CORPUSCULAR HEMOGLOBIN 32.9 pg (27.0-33.0); MEAN CORPUSCULAR HGB CONC 32.2 g/dl (32.0-36.5); MEAN CORPUSCULAR VOLUME 102.3 fl (80.0-96.0); MONO # 0.4 10^3/uL (0.0-0.8); MONO % 3.4 % (2.0-8.0); NEUTROPHILS # 11.4 10^3/uL (1.5-8.5); NEUTROPHILS % 93.7 % (36.0-66.0); PLATELET COUNT, AUTOMATED 204 10^3/uL (150-450); RED BLOOD COUNT 3.04 10^6/uL (4.00-5.40); WHITE BLOOD COUNT 12.2 10^3/uL (4.0-10.0)
[2022-10-01] MEDS: ASPIRIN 81MG ENTERIC TABLET PO SCH (20:11)
[2022-10-01] MEDS: ATORVASTATIN 20 MG TAB PO SCH (20:12)
[2022-10-02] MEDS: IPRATROPIUM 0.5MG/ALBUTEROL 2.5MG INH SOL UD 3ML (DUONEB) NEB SCH ×5 (00:36→15:22)
[2022-10-02] MEDS: LEVOTHYROXINE 75MCG TABLET (0.075MG) PO SCH (05:40)
[2022-10-02 05:46] VITALS: BP 122/60
[2022-10-02] MEDS: ADVAIR HFA 115/21MCG INHALER INH SCH (07:59)
[2022-10-02 08:42] LABS: VENOUS BASE EXCESS 4.9 (-2.0-2.0); VENOUS O2 SATURATION 84.9 % (60.0-80.0); VENOUS PARTIAL PRESSURE CO2 52.5 mmHg (38.0-50.0); VENOUS PARTIAL PRESSURE O2 51.9 mmHg (30.0-50.0); VENOUS PH 7.389 UNITS (7.330-7.430); VENOUS STANDARD HCO3 28.6 MEQ/L; VENOUS TOTAL CO2 32.6 MEQ/L (24.0-28.0)
[2022-10-02 08:47] LABS: BASO % 0.1 % (0.0-1.0); HEMOGLOBIN 10.9 g/dl (12.0-15.5); LYMPH # 0.3 10^3/uL (1.5-5.0); MEAN CORPUSCULAR HEMOGLOBIN 32.5 pg (27.0-33.0); MEAN CORPUSCULAR HGB CONC 31.1 g/dl (32.0-36.5); MEAN CORPUSCULAR VOLUME 104.5 fl (80.0-96.0); MONO # 0.3 10^3/uL (0.0-0.8); MONO % 2.9 % (2.0-8.0); NEUTROPHILS # 10.6 10^3/uL (1.5-8.5); PLATELET COUNT, AUTOMATED 220 10^3/uL (150-450); RED BLOOD COUNT 3.35 10^6/uL (4.00-5.40); WHITE BLOOD COUNT 11.4 10^3/uL (4.0-10.0)
[2022-10-02 09:21] LABS: CALCIUM LEVEL 9.1 MG/DL (8.3-10.6); CREATININE FOR GFR 1.44 MG/DL (0.55-1.30); GLOMERULAR FILTRATION RATE 36.5 (>32); POTASSIUM SERUM 4.7 MMOL/L (3.5-5.1)
[2022-10-02] MEDS: FUROSEMIDE 40MG/4ML VIAL (J1940) IV SCH (09:25)
[2022-10-02] MEDS: INSULIN LISPRO (NovoLOG) PER UNIT SC SCH ×2 (09:25→12:15)
[2022-10-02] MEDS: glipiZIDE XL 5 MG TABCR PO SCH (09:26)
[2022-10-02] MEDS: DOXYCYCLINE HYCLATE 100MG TABLET PO SCH (09:26)
[2022-10-02] MEDS: methylPREDNISolone 40MG 1ML VIAL IV SCH (09:26)
[2022-10-02] MEDS: MAGNESIUM OXIDE 400MG TAB (MAG-OX) PO SCH (09:27)
[2022-10-02] MEDS: OMEPRAZOLE 20MG CAP PO SCH (09:27)
[2022-10-02 09:28] VITALS: BP 136/52
[2022-10-02] MEDS: amLODIPine 5 MG TAB PO SCH (09:28)
[2022-10-02] MEDS: atenoloL 50 MG TAB PO SCH (09:28)
[2022-10-02] MEDS ORDERED: DOXY100T PO (10:46)
[2022-10-02] MEDS ORDERED: ATOR80TA59 PO (10:46)
[2022-10-02] MEDS ORDERED: PRED20TA PO ×2 (10:48→16:43)
[2022-10-02] MEDS ORDERED: METO5TA PO (11:26)
[2022-10-02] MEDS ORDERED: METO25TA PO (11:26)
[2022-10-02 13:45] VITALS: BP 136/52
[2022-10-02] MEDS ORDERED: ALBU8.5H INH (16:43)
[2022-10-02] MEDS ORDERED: AMOX875T2 PO (16:43)
[2022-10-03] MEDS ORDERED: LEVO1TAB40 PO (10:51)
== END 2022-10-02 16:45 | disposition home health service (06) | DRG 280 ==
LOC: M ED 17:57 → M ED INP 20:31 → ENRESERV 21:00 → M ICU 22:09 → M MS5PR 10-01 22:14
PROVIDERS: ADMIT Internal Medicine; ATTEND Student in an Organized Health Care Education/Training Program
PROC: B246ZZZ Ultrasonography of Right and Left Heart (ICD-10-PCS; principal; 2022-09-30)
DX: I13.0 Hypertensive heart and chronic kidney disease with heart failure and stage 1 through stage 4 chronic kidney disease, or unspecified chronic kidney disease (principal); I21.A1 Myocardial infarction type 2; J96.21 Acute and chronic respiratory failure with hypoxia; J96.22 Acute and chronic respiratory failure with hypercapnia; I50.33 Acute on chronic diastolic (congestive) heart failure; J44.1 Chronic obstructive pulmonary disease with (acute) exacerbation; E87.20 Acidosis, unspecified; E22.2 Syndrome of inappropriate secretion of antidiuretic hormone; N17.9 Acute kidney failure, unspecified; J44.0 Chronic obstructive pulmonary disease with (acute) lower respiratory infection; B34.8 Other viral infections of unspecified site; I48.91 Unspecified atrial fibrillation; Z79.01 Long term (current) use of anticoagulants; E03.9 Hypothyroidism, unspecified; Z79.890 Hormone replacement therapy; N18.30 Chronic kidney disease, stage 3 unspecified; D50.9 Iron deficiency anemia, unspecified; E11.22 Type 2 diabetes mellitus with diabetic chronic kidney disease; Z79.84 Long term (current) use of oral hypoglycemic drugs; Z79.82 Long term (current) use of aspirin; Z79.899 Other long term (current) drug therapy; Z88.0 Allergy status to penicillin; Z88.8 Allergy status to other drugs, medicaments and biological substances; Z88.3 Allergy status to other anti-infective agents; E78.5 Hyperlipidemia, unspecified; I25.10 Atherosclerotic heart disease of native coronary artery without angina pectoris; Z98.49 Cataract extraction status, unspecified eye; Z95.0 Presence of cardiac pacemaker; Z87.891 Personal history of nicotine dependence; Z66 Do not resuscitate; K21.9 Gastro-esophageal reflux disease without esophagitis; R31.0 Gross hematuria; I27.20 Pulmonary hypertension, unspecified; K44.9 Diaphragmatic hernia without obstruction or gangrene

== ENCOUNTER → 2022-10-30 | Outpatient (CLI) | payer MEDICARE ==
[~2022-10-30] MED LIST changes: +AMOX875T2 PO; +ATOR80TA59 PO; +DOXY100T PO; +LEVO1TAB40 PO; +METO25TA PO; +METO5TA PO
[2022-10-30 12:58] LABS: HEMATOCRIT 37.1 % (36.0-47.0); MEAN CORPUSCULAR HEMOGLOBIN 32.6 pg (27.0-33.0); MEAN CORPUSCULAR HGB CONC 32.3 g/dl (32.0-36.5); MEAN CORPUSCULAR VOLUME 100.8 fl (80.0-96.0); PLATELET COUNT, AUTOMATED 206 10^3/uL (150-450); RED BLOOD COUNT 3.68 10^6/uL (4.00-5.40)
[2022-10-30 13:20] LABS: CALCIUM LEVEL 9.1 MG/DL (8.3-10.6); CREATININE FOR GFR 1.01 MG/DL (0.55-1.30); GLOMERULAR FILTRATION RATE 54.9 (>32); POTASSIUM SERUM 4.2 MMOL/L (3.5-5.1)
== END ==
LOC: M WUC 10:06
PROVIDERS: ATTEND Internal Medicine
DX: R31.9 Hematuria, unspecified (principal); R30.0 Dysuria

== ENCOUNTER 2023-07-06 11:25 | Emergency (ER) | payer MEDICARE ==
[~2023-07-06] VITALS: Ht 152.4 cm; Wt 52.7 kg
[2023-07-06 11:25] VITALS: TEMP 98.2
[2023-07-06 12:58] LABS: BASO % 0.1 % (0.0-1.0); EOS % 0.1 % (0.0-3.0); HEMATOCRIT 37.4 % (36.0-47.0); HEMOGLOBIN 11.7 g/dl (12.0-15.5); LYMPH # 0.4 10^3/uL (1.5-5.0); LYMPH % 5.6 % (24.0-44.0); MEAN CORPUSCULAR HEMOGLOBIN 31.4 pg (27.0-33.0); MEAN CORPUSCULAR HGB CONC 31.3 g/dl (32.0-36.5); MEAN CORPUSCULAR VOLUME 100.3 fl (80.0-96.0); MONO # 0.3 10^3/uL (0.0-0.8); MONO % 4.2 % (2.0-8.0); NEUTROPHILS # 6.1 10^3/uL (1.5-8.5); NEUTROPHILS % 89.9 % (36.0-66.0); PLATELET COUNT, AUTOMATED 161 10^3/uL (150-450); RED BLOOD COUNT 3.73 10^6/uL (4.00-5.40); WHITE BLOOD COUNT 6.8 10^3/uL (4.0-10.0)
[2023-07-06 13:14] LABS: INR 1.07; PROTHROMBIN TIME 13.6 SECONDS (12.5-14.5)
[2023-07-06 13:22] LABS: ALBUMIN 2.8 G/DL (3.2-5.2); BILIRUBIN,DIRECT 0.2 MG/DL (<0.4); BILIRUBIN,TOTAL 0.5 MG/DL (0.3-1.2); CALCIUM LEVEL 8.9 MG/DL (8.3-10.6); CK-MB VALUE MASS 1.7 NG/ML (<3.6); CREATININE FOR GFR 1.53 MG/DL (0.55-1.30); POTASSIUM SERUM 4.6 MMOL/L (3.5-5.1); TOTAL PROTEIN 5.5 G/DL (5.7-8.2)
[2023-07-06 13:23] LABS: THYROXINE (T4) 6.2 UG/DL (4.5-10.9)
[2023-07-06 13:24] LABS: THYROID STIMULATING HORMONE 10.624 uIU/ML (0.55-4.78)
[2023-07-06 13:25] LABS: MB/CK RELATIVE INDEX 3.03 (< OR =4)
[2023-07-06] MEDS ORDERED: NS 500 ML IV ONE (13:45)
[2023-07-06 16:00] VITALS: BP 131/63
[2023-07-06 16:25] VITALS: O2SAT 94
== END 2023-07-06 16:57 | disposition home or self-care (01) ==
LOC: M ED 11:25
DX: U07.1 COVID-19 (principal); E86.0 Dehydration; I50.9 Heart failure, unspecified; I25.2 Old myocardial infarction; I10 Essential (primary) hypertension; J44.9 Chronic obstructive pulmonary disease, unspecified; E78.5 Hyperlipidemia, unspecified; K21.9 Gastro-esophageal reflux disease without esophagitis; K57.92 Diverticulitis of intestine, part unspecified, without perforation or abscess without bleeding; Z87.01 Personal history of pneumonia (recurrent); Z95.0 Presence of cardiac pacemaker; F17.200 Nicotine dependence, unspecified, uncomplicated; Z79.01 Long term (current) use of anticoagulants; Z79.82 Long term (current) use of aspirin; Z79.84 Long term (current) use of oral hypoglycemic drugs; Z79.899 Other long term (current) drug therapy; Z88.0 Allergy status to penicillin; Z88.8 Allergy status to other drugs, medicaments and biological substances; Z91.041 Radiographic dye allergy status